=== PATIENT | female | born 1965 | race Caucasian/White ===

== ENCOUNTER → 2019-10-04 | Outpatient (CLI) | payer BC ==
--- NOTE | 2019-10-04 22:16 | MR ---
EXAMINATION TYPE: MR cervical spine wo con DATE OF EXAM: 10/04/2019 COMPARISON: None HISTORY: Neck and Back Pain, Post Fall in February. CONTRAST: Performed utilizing 0 mL intravenous Gadavist gadolinium contrast. TECHNIQUE: Multiplanar multiecho imaging on a 3.0 Chrissie magnet is performed through the cervical spin e. FINDINGS: The craniovertebral junction is normal. Vertebral body alignment is normal. Cervical spine: Disc heights are preserved. Vertebral body heights are preserved. No spinal canal teresa nosis or neural foraminal stenosis is present. Mild disc desiccation is present through the cervical spine. At T3-4 and sagittal plane there appears to be some subligamentous disc herniation with mild anterior thecal sac compression. IMPRESSIONS: 1. Unremarkable MRI cervical spine.
--- NOTE | 2019-10-04 22:53 | MR ---
EXAMINATION TYPE: MR thoracic spine wo/w con DATE OF EXAM: 10/04/2019 COMPARISON: None HISTORY: Neck and Back Pain, Post Fall in February. CONTRAST: Performed utilizing 7.5 mL intravenous Gadavist gadolinium contrast. TECHNIQUE: Multiplanar, multiecho imaging on a 3.0 Chrissie magnet is performed through the thoracic spi ne. Spinal cord maintains normal signal through its visualized course. Vertebral body alignment is normal. Vertebral body heights are preserved. Disc heights are preserved. There is some disc desiccation within the mid thoracic spine. At the T3-4 level there is focal right paracentral disc bulging. This has cord contact. Some cord def ormity may be present. No AP spinal canal stenosis is present. Neural foramen are widely patent. At T5-6 there is left and right paracentral disc bulging and endplate changes this has moderate anter ior thecal sac compression. Some cord deformity is present. The spinal canal stenosis is not present. IMPRESSIONS: 1. Left and right paracentral disc bulging at T5-6 with moderate anterior thecal sac compression. Thi s is contributing to cord deformity. No spinal canal stenosis is present. 2. Moderate right paracentral T3-4 disc bulging with cord contact and mild cord deformity. No spinal canal stenosis is present.
== END | disposition home or self-care (01) ==
LOC: RADMRIMAIN 15:51
PROVIDERS: ATTEND Family Medicine
DX: M47.11 Other spondylosis with myelopathy, occipito-atlanto-axial region (principal); M51.24 Other intervertebral disc displacement, thoracic region
CPT/HCPCS: 72141; 72157; A9585

== ENCOUNTER 2020-03-14 11:19 | Day surgery (SDC) | payer BC, OTHER ==
[2020-03-10 17:25] VITALS: BMI 31.5
[~2020-03-14 11:19] MED LIST: LACTATED RINGERS 1,000 ML IV SCH; LIDOCAINE 1% (10MG/ML) FOR IV START INTRADERMA PRN
[2020-03-14 11:55] VITALS: TEMP 97.6
[2020-03-14] MEDS ORDERED: PROPOFOL 10 MG/ML 20 ML VIAL IV ONE (13:02)
--- NOTE | 2020-03-14 13:23 | P.PCN ---
Date of Procedure: 03/14/20 Procedure(s) Performed: BRIEF HISTORY: Patient is a 55-year-old pleasant white female scheduled for an elective colonoscopy as a part of evaluation of positive cologuard. PROCEDURE PERFORMED: Colonoscopy With snare polypectomy and biopsy. PREOPERATIVE DIAGNOSIS: Positive cologuard. IV sedation per Anesthesia. PROCEDURE: After informed consent was obtained, the patient, was brought into the endoscopy unit. IV sedation was administered by Anesthesia under continuous monitoring. Digital rectal examination was normal. Initially the Olympus CF-160 flexible video colonoscope was then inserted in the rectum, gradually advanced into the cecum without any difficulty. Careful examination was performed as the scope was gradually being withdrawn. Ileocecal valve and the appendiceal orifice were visualized and appeared normal. Prep was excellent. Mucosa of the cecum, ascending colon, were normal. The hepatic flexure there was a 3 mm polyp that was removed by cold biopsy and a 5 limited polyp that was removed by snare polypectomy. The transverse colon there was a 1 cm flat polyp removed by snare polypectomy. Rest of the transverse colon, descending colon, sigmoid colon, and rectum appeared normal. Rectum there was a 5 mm 2 polyps removed by snare polypectomy Retroflexion was performed in the rectum and no lesions were seen. The patient tolerated the procedure well. IMPRESSION: 3 mm and 5 mm hepatic flexure polyp status post removal by biopsy and snare polypectomy 1 cm flat transverse colon polyp status post snare polypectomy 5 mm 2 rectal polyps status post polypectomy RECOMMENDATIONS: Findings of this examination were discussed with the patient as well as a family..He was advised to follow up the biopsy results. If the biopsy shows an adenoma she can have a repeat colonoscopy in 3-5 years
[2020-03-14] MEDS ORDERED: IV FLUID CONTINUATION 800 ML IV ONE (13:27)
[2020-03-14 13:40] VITALS: BP 159/80; PULSE 74; RESP 20
== END 2020-03-14 14:23 | disposition home or self-care (01) ==
LOC: ORWHC2ENDO 11:19
PROVIDERS: ATTEND Internal Medicine Gastroenterology
DX: D12.3 Benign neoplasm of transverse colon (principal); K63.5 Polyp of colon; F17.210 Nicotine dependence, cigarettes, uncomplicated; Z90.11 Acquired absence of right breast and nipple; Z79.899 Other long term (current) drug therapy; Z88.1 Allergy status to other antibiotic agents; Z91.09 Other allergy status, other than to drugs and biological substances
CPT/HCPCS: 88305; 45380; 45385; J2704

== ENCOUNTER → 2021-10-09 | Outpatient (CLI) | payer BC ==
--- NOTE | 2021-10-09 09:20 | MM ---
Reason for Exam: Screening (asymptomatic). Additional evaluation requested from prior study. Patient History: Menarche at age 13. First Full-Term at age 18. Postmenopausal. Breast cancer, right, age 30. 02/29/1996, Reduction on the Left side. 02/29/1996, Mastectomy on the Right side. 08/30/1995, MG stereo VAD BX RT on the Right side. 02/29/1996, TRAM Reconstruction on the right side. Tissue Density: The breast tissue is heterogeneously dense. This may lower the sensitivity of mammography. Findings: Analyzed By CAD. At the 12:00 position approximately 8 cm from the nipple is a 4.1 x 3.2 x 2.8 cm mass with irregular margins and internal calcifications felt to reflect malignancy until proven otherwise. Enlarged left axillary lymph nodes are also noted. Tracheal reconstruction on the right. Implant is noted in place. No evidence for mass or suspicious calcifications right side. Overall Assessment: Incomplete: need additional imaging evaluation, BI-RAD 0 Assessment: MG 3D screening mammo w/cad - Bilateral: Incomplete: need additional imaging evaluation, BI-RAD 0. Management: Diagnostic Breast Ultrasound of the left breast. A clinical breast exam by your physician is recommended on an annual basis and results should be correlated with mammographic findings. Electronically signed and approved by: Robby Flores M.D. Radiologis
== END | disposition home or self-care (01) ==
LOC: RADMAMWWP 07:26
PROVIDERS: ATTEND Family Medicine
DX: Z12.31 Encounter for screening mammogram for malignant neoplasm of breast (principal); R92.1 Mammographic calcification found on diagnostic imaging of breast
CPT/HCPCS: 77063; 77067

== ENCOUNTER → 2021-10-17 | Day surgery (SDC) | payer BC ==
--- NOTE | 2021-10-19 11:23 | USB ---
Pathology Description: Location: 12 o'clock. Marker Left Behind. Cores: 4 Gauge: 12 EXAM: US biopsy breast VAD LT, US biopsy breast add'l VAD LT DATE OF EXAM: 10/17/2021 COMPARISON: DESCRIPTION: The procedure of ultrasound guided core biopsy was explained to the patient. Benefits, alternatives, and risks were discussed. An informed consent was then obtained. The patient was placed in supine positioning for imaging and for the procedure. The overlying skin was prepped and draped in usual sterile fashion. Lidocaine buffered with bicarbonate was used as anesthetic into the skin and subcutaneous tissue up to area of concern in the left 12:00 breast and left axillary lymph node. Under ultrasound guidance, a 12-gauge vacuum assisted biopsy gun device was used to obtain 4 core samplesleft 12:00 breast mass and 2 core samples of abnormal left axillary lymph node.. Following this, a biopsy clips were left in lesion. The patient tolerated the procedure well without any immediate complication. The patient was kept in the radiology department for short stay after the procedure and then discharged home in stable condition. Impression: Successful, uncomplicated ultrasound guided core biopsy of area of concern in the left 12:00 breast and left axillary lymph node, full pathology results to follow. Pathology Results: Result: Malignant, Invasive ductal carcinoma. A. LEFT BREAST, TWELVE O'CLOCK, ULTRASOUND GUIDED NEEDLE CORE BIOPSY: Invasive poorly differentiated ductal carcinoma (Grade 3). See Surgical Pathology Cancer Case Summary. B. LEFT AXILLA LYMPH NODE, CORE BIOPSY: Lymph node positive for metastatic poorly differentiated carcinoma consistent with ductal breast primary. Pathology Description: Location: axilla. Marker Left Behind. Cores: 2 Gauge: 12 EXAM: US biopsy breast VAD LT, US biopsy breast add'l VAD LT DATE OF EXAM: 10/17/2021 COMPARISON: DESCRIPTION: The procedure of ultrasound guided core biopsy was explained to the patient. Benefits, alternatives, and risks were discussed. An informed consent was then obtained. The patient was placed in supine positioning for imaging and for the procedure. The overlying skin was prepped and draped in usual sterile fashion. Lidocaine buffered with bicarbonate was used as anesthetic into the skin and subcutaneous tissue up to area of concern in the left 12:00 breast and left axillary lymph node. Under ultrasound guidance, a 12-gauge vacuum assisted biopsy gun device was used to obtain 4 core samplesleft 12:00 breast mass and 2 core samples of abnormal left axillary lymph node.. Following this, a biopsy clips were left in lesion. The patient tolerated the procedure well without any immediate complication. The patient was kept in the radiology department for short stay after the procedure and then discharged home in stable condition. Impression: Successful, uncomplicated ultrasound guided core biopsy of area of concern in the left 12:00 breast and left axillary lymph node, full pathology results to follow. Pathology Results: Result: Malignant, Invasive ductal carcinoma. A. LEFT BREAST, TWELVE O'CLOCK, ULTRASOUND GUIDED NEEDLE CORE BIOPSY: Invasive poorly differentiated ductal carcinoma (Grade 3). See Surgical Pathology Cancer Case Summary. B. LEFT AXILLA LYMPH NODE, CORE BIOPSY: Lymph node positive for metastatic poorly differentiated carcinoma consistent with ductal breast primary. Tissue Density: Left: The breast tissue is heterogeneously dense. This may lower the sensitivity of mammography. Overall Assessment: Malignant Assessment: MG diagnostic mammo LT wo CAD. - Left: Known biopsy proven malignancy, BI-RAD 6. Management: Diagnostic Mammogram of the left breast in 6 months. Surgical Consultation of the left breast. Electronically signed and approved by: Robby Flores M.D. Radiologis
== END ==
LOC: RADUSWWP 10:11
PROVIDERS: ATTEND Surgery
DX: C50.912 Malignant neoplasm of unspecified site of left female breast (principal); C77.3 Secondary and unspecified malignant neoplasm of axilla and upper limb lymph nodes; Z17.1 Estrogen receptor negative status [ER-]; Z88.1 Allergy status to other antibiotic agents; Z91.09 Other allergy status, other than to drugs and biological substances; F17.200 Nicotine dependence, unspecified, uncomplicated
CPT/HCPCS: 88305; 88342; 88341; 77065; 19083; 19084; A4648

== ENCOUNTER → 2021-10-26 | Outpatient (CLI) | payer BC ==
[2021-10-26 14:55] VITALS: BP 152/85; PULSE 79; RESP 18; TEMP 98.9
--- NOTE | 2021-10-26 15:22 | P.GSHP ---
History of Present Illness H&P Date: 10/26/21 Chief Complaint: left breast invasive ductal cancer Milagros is a 56 year old white female seen in consultation for Dr. Avitia regarding a biopsy proven cancer of the left breast. [id number](-). She feels a mass in her left breast which she has noted for several months. It has grown since she noted it in May. It is painful. States that the left breast is warm, it has some retraction, and it is not draining anything. She had a mastectomy on the right side at the age of 31 with a reconstruction. [facility] and a mastecotmy. She also had radiation to that side. She aslo had a reduction on the left side at that time. She had a bilateral mammogram [id number] showed a lesion of concern in the left breast, this was 4.1 x 3.2 x 2.8 cm with irregular margins and an enlarged lymph node was also noted to be present. On the right sided implant was noted to be in place no evidence for mass or suspicious calcifications on the right. The ultrasound was done on the same date which again revealed a 4.1 x 3.2 cm mass with irregular margins for which core biopsy was recommended.. This led to an ultrasound and a biopsy of the left side. She did not use any anti hormone therapy. She did not have genetic testing. Caffiene: 3 cups/day nicotine: stopped smoking July 19, 2021; prior 3/4 PPD since in teens hormones: BCP: 5 years in twenties chocolate: often Family history: maternal grandmother: uterine, bowel and bladder cancer Hormonal History: menarche: 13 (twins), age at first : 18, breast fed: no menopause: 40's Surgical History: 2 tram flap reconstruction right mastectomy medipost placed and removed left breast reduction Medical History: none Social History: nicotine: none alcohol: occasional drugs:none - Constitutional Constitutional: Denies chills, Denies fever - EENT Eyes: denies blurred vision, denies pain Ears: bilateral: decreased hearing, deny: tinnitus Ears, nose, mouth and throat: Denies headache, Denies sore throat - Breasts Breasts: bilateral: as per HPI - Cardiovascular Cardiovascular: Denies chest pain, Denies shortness of breath - Respiratory Respiratory: Denies cough, Denies 7 - Gastrointestinal Gastrointestinal: Denies abdominal pain, Denies diarrhea, Denies nausea, Denies vomiting - Genitourinary (Female) Genitourinary: Denies dysuria, Denies hematuria - Menstruation Menstruation: Reports postmenopausal - Musculoskeletal Musculoskeletal: Denies myalgias - Integumentary Integumentary: Denies pruritus, Denies rash - Neurological Neurological: Denies numbness, Denies weakness - Psychiatric Psychiatric: Denies anxiety, Denies depression - Endocrine Endocrine: Reports fatigue, Denies weight change - Hematologic/Lymphatic Comment: none - Allergic/Immunologic Allergic/Immunologic: Reports seasonal allergies Past Medical History Past Medical History: Asthma, Cancer, Osteoarthritis (OA) Additional Past Medical History / Comment(s): Fell Feb 2019, hurt back, still having issues. Allergies. Hx right breast cancer 1995. Heartburn. History of Any Multi-Drug Resistant Organisms: None Reported Past Surgical History: Breast Surgery, Section Additional Past Surgical History / Comment(s): Section X2, right mastectomy with reconstructive surgery, Mediport placed and removed. Additional Past Anesthesia/Blood Transfusion Reaction / Comment(s): No BP or IV starts or Blood Work in right arm. Difficult IV start. Past Psychological History: No Psychological Hx Reported Smoking Status: Former smoker Past Alcohol Use History: Occasional Additional Past Alcohol Use History / Comment(s): Has been smoking for 40 yrs <1ppd. Quit June 2021 Past Drug Use History: None Reported - Past Family History Mother Family Medical History: No Reported History Medications and Allergies Home Medications Medication Instructions Recorded Confirmed Type Cetirizine HCl 10 mg PO DAILY 10/11/21 10/26/21 History Albuterol Inhaler [Ventolin Hfa 1 puff PO DIRECTED PRN 10/26/21 10/26/21 History Inhaler] Fluticasone Nasal [place] [Flonase 1 spray NASAL DAILY 10/26/21 10/26/21 History Nasal [place]] Meloxicam [Mobic] 15 mg PO DAILY 10/26/21 10/26/21 History Allergies Allergy/AdvReac Type Severity Reaction Status Date / Time doxycycline Allergy Vomiting Verified 10/26/21 14:47 Tape Allergy "Eats Skin" Uncoded 10/26/21 14:47 Surgical - Exam Vital Signs Temp Pulse Resp BP Pulse Ox 98.9 F 79 18 152/85 97 10/26/21 14:50 10/26/21 14:50 10/26/21 14:50 10/26/21 14:50 10/26/21 14:50 BM: 31.1 - General no distress - Eyes normal ocular movement - Neck trachea midline - Respiratory normal respiratory effort, clear to auscultation - Cardiovascular Rhythm: regular Heart Sounds: normal: S1, S2 - Abdomen Abdomen: soft, non tender, no guarding, no rigid, no rebound - Integumentary normal turgor - Neurologic no disoriented, no combative - Musculoskeletal normal gait - Psychiatric oriented to time, oriented to person, oriented to place, speech is normal, memory intact Breast Exam: BRA: sports XL inspection: Right breast status post mastectomy and reexcision with subpectoral prosthesis and TRAM flap, left breast reduction with skin changes in the lower aspect of the breast and some mild erythema Palpation: Right breast/chest wall: No evidence of any recurrent cancer Right axilla: No evidence of any adenopathy of concern Left breast: Engorged with fullness in the upper outer quadrant extending from the upper outer quadrant into the 12 o'clock position approximately 8 cm in size Left axilla: + adenopathy Results Mammogram and ultrasound reviewed personally with Dr. Meraz Assessment and Plan Assessment: Impression: Patient status post right breast mastectomy and reconstruction at the age of 31 approximately 25 years ago with no evidence of any recurrent cancer on the right chest wall. Recent mass left breast biopsy proven triple negative carcinoma Genetic testing unknown Plan: Genetic testing Presentation of case at tumor board Appointment with medical oncology Patient seen with her daughter. We have discussed the pathology and treatment options. CC: Dr. Avitia
== END ==
LOC: WWCWWP 14:02
PROVIDERS: ATTEND Surgery
DX: C50.912 Malignant neoplasm of unspecified site of left female breast (principal); Z90.11 Acquired absence of right breast and nipple; J45.909 Unspecified asthma, uncomplicated; M19.90 Unspecified osteoarthritis, unspecified site; Z87.891 Personal history of nicotine dependence; Z88.1 Allergy status to other antibiotic agents; Z91.048 Other nonmedicinal substance allergy status

== ENCOUNTER → 2021-10-30 | Outpatient (CLI) | payer BC ==
--- NOTE | 2021-10-30 16:14 | NM ---
EXAMINATION TYPE: NM bone scan whole body DATE OF EXAM: 10/30/2021 COMPARISON: NONE HISTORY: Breast carcinoma Delayed whole-body scanning was performed following the injection of 23.1 mCi Tc 99m MDP. Images acq uired 3 hours post injection. FINDINGS: Soft tissue uptake is mildly asymmetric within the lower extremities. Uptake within the feet, ankles, knees, wrists and hands, shoulders and sternoclavicular joints is likely degenerative, mildly asymme tric in the right knee is compared to left, right ankle and foot as compared to left, right hip as co mpared to left. An asymmetric tram track appearance of uptake is present along the right femur, indeterminate. There may be venous stasis disease, some mild increased uptake is present in the right lower extremity soft tissues as compared to the left. There is a scoliotic curvature to the spine. Uptake in the maxilla and mandible is likely due to periodontal disease. IMPRESSION: Correlate for venous stasis disease in the right lower extremity greater than left as described. Ther e is asymmetric periosteal reaction suspected in the right femur as compared to the left, no other ev ident prostatic disease.
== END | disposition home or self-care (01) ==
LOC: RADNMMAIN 10:45
PROVIDERS: ATTEND Surgery
DX: C50.212 Malignant neoplasm of upper-inner quadrant of left female breast (principal)
CPT/HCPCS: 78306; A9503

== ENCOUNTER → 2021-10-31 | Outpatient (CLI) | payer BC ==
--- NOTE | 2021-11-01 15:02 | CA ---
Transthoracic Echo Report Name: Milagros Rapp Age: 56 Gender: F : 1965 Exam Date: 10/31/2021 14:08 Exam Location: [facility] Ht (in): 62 Wt (lb): 180 Ordering Physician: Titus Hernandez MD Attending/Referring Phys: [employer] Operator Michelle Cornejo RDCS Procedure CPT: Indications: Z01.818 PRE PROCEDURAL Cardiac Hx: Technical Quality: Fair Contrast 1: Total Dose (mL): Contrast 2: Total Dose (mL): MEASUREMENTS (Male / Female) Normal Values M-MODE Aortic Root Diameter MM 2.9 cm LA Systolic Diameter MM 4.2 cm LA Ao Ratio MM 1.5 MV E Point Septal Separation 1.1 cm AV Cusp Separation MM 1.8 cm DOPPLER MV Area PHT 3.0 cm??? Mitral E Point Velocity 64.5 cm/s Mitral A Point Velocity 72.8 cm/s Mitral E to A Ratio 0.9 MV Deceleration Time 252.5 ms MV E' Velocity 9.4 cm/s Mitral E to MV E' Ratio 6.9 TR Peak Velocity 155.1 cm/s TR Peak Gradient 9.6 mmHg Right Ventricular Systolic Press 14.6 mmHg FINDINGS Left Ventricle Normal left ventricular size, wall thickness, systolic function with no obvious regional wall motion abnormalities. Left ventricular ejection fraction is estimated at 50-55%. Right Ventricle The right ventricle is normal in size and function. Right Atrium The right atrium is normal in size. Left Atrium Left atrial dilatation. Mitral Valve Structurally normal mitral valve without significant stenosis or prolapse. There is mild mitral regurgitation. Aortic Valve Structurally normal aortic valve without significant sclerosis or stenosis. There is no aortic regurgitation. Tricuspid Valve Structurally normal tricuspid valve without significant stenosis. Pulmonary artery systolic pressure is normal. Pulmonic Valve Structurally normal pulmonic valve without significant stenosis. There is no pulmonic regurgitation. Pericardium Normal pericardium without effusion. Aorta Normal aortic root dimension. CONCLUSIONS Normal LV systolic function ejection fraction greater than 55% No significant valvular abnormalities Previewed by: Dr. Zach Rivero MD (Electronically Signed) Final Date: 01 November 2021 15:02
== END | disposition home or self-care (01) ==
LOC: RADECHMAIN 13:44
PROVIDERS: ATTEND Internal Medicine
DX: Z01.818 Encounter for other preprocedural examination (principal); I08.0 Rheumatic disorders of both mitral and aortic valves
CPT/HCPCS: 93306

== ENCOUNTER → 2021-11-01 | Outpatient (CLI) | payer BC ==
--- NOTE | 2021-11-01 13:51 | CT ---
EXAMINATION TYPE: CT ChestAbdPelvis w con CT DLP: 1151.00 mGycm, Automated exposure control for dose reduction was used. DATE OF EXAM: 11/01/2021 12:49 PM COMPARISON: None. CLINICAL INDICATION:Female, 56 years old with history of C50.212 breast ca; follow up for breast canc er Technique: Multiple axial images of the chest, abdomen, and pelvis were obtained following the intrav enous administration of 100 mL Isovue-300. Oral contrast administered. Two-dimensional coronal and sa gittal reconstructions were obtained. Findings: CHEST: LUNGS/ PLEURA: 4 mm right lower lobe pleural-based noncalcified nodule (series 4, image 45). Right a pex pleural parenchymal scarring. Right upper lobe subpleural reticular opacities likely related to p osttreatment changes (radiation). No pneumothorax or pleural effusion. No focal consolidation. AIRWAY: Patent and unremarkable. HEART: Size within normal limits. No pericardial effusion. MEDIASTINUM/HILUM: No pathologic adenopathy. VASCULATURE: No aortic aneurysm. MUSCULOSKELETAL: No acute osseous abnormalities. SOFT TISSUES/LYMPH NODES: Left breast skin thickening demonstrated. Left breast peripheral enhancing mass measuring 4.1 x 2.9 cm. Enlarged left axillary lymph nodes with index lymph nodes including a 2. 6 x 1.4 cm lymph node (series 3, 17) and a 2.1 x 1.6 centimeter lymph node (series 3, image 10). Post surgical changes from right mastectomy with breast implant in place. LOWER NECK: No significant findings. ABDOMEN: ABDOMEN LIVER: A few scattered subcentimeter hypoattenuating lesions within the liver which are too small to accurately characterize. GALLBLADDER AND BILE DUCTS: Cholelithiasis without evidence of surrounding inflammatory changes. No b iliary duct dilatation. PANCREAS: Unremarkable. SPLEEN: Unremarkable. ADRENAL GLANDS: Unremarkable. KIDNEYS AND URETERS: No evidence of hydronephrosis or renal calculus. Kidneys enhance symmetrically. No suspicious lesion. PELVIS BLADDER: Unremarkable REPRODUCTIVE: Unremarkable. ABDOMEN & PELVIS STOMACH AND BOWEL: Stomach and duodenum are unremarkable. No focal wall thickening. Enteric contrast reaches the descending colon. No evidence of bowel obstruction. PERITONEUM: No evidence of pneumoperitoneum or free fluid. VASCULATURE: No evidence of aortic aneurysm. MUSCULOSKELETAL: No acute osseous abnormalities. No suspicious osseous lesions. S-shaped scoliotic cu rvature of the visualized spine. LYMPH NODES: No gross evidence for lymphadenopathy. SOFT TISSUE/ABDOMINAL WALL: Unremarkable IMPRESSION: * Left breast 4.1 cm mass consistent with biopsy-proven invasive ductal carcinoma. * Left axillary lymphadenopathy consistent with biopsy-proven metastatic disease. * Nonspecific 4 mm right lower lobe pulmonary nodule. Attention on follow-up. * A few subcentimeter hypodense foci within the liver are too small to characterize. Attention on fo llow-up. * Cholelithiasis.
== END | disposition home or self-care (01) ==
LOC: RADCTMAIN 11:19
PROVIDERS: ATTEND Surgery
DX: C50.212 Malignant neoplasm of upper-inner quadrant of left female breast (principal); K80.20 Calculus of gallbladder without cholecystitis without obstruction
CPT/HCPCS: 71260; 74177; Q9967

== ENCOUNTER → 2022-02-11 | Outpatient (CLI) | payer BC ==
--- NOTE | 2022-02-12 12:21 | CA ---
Transthoracic Echo Report Name: Milagros Rapp Age: 57 Gender: F : 1965 Exam Date: 02/11/2022 14:16 Exam Location: [facility] Ht (in): 63 Wt (lb): 190 Ordering Physician: Titus Hernandez MD Attending/Referring Phys: Manager Clinical Services Pauline aHgan RDCS Procedure CPT: Indications: Z01.818 PREPROCEDURAL EXAMINATION Cardiac Hx: Technical Quality: Fair Contrast 1: Total Dose (mL): Contrast 2: Total Dose (mL): MEASUREMENTS (Male / Female) Normal Values 2D ECHO LV Diastolic Diameter PLAX 3.9 cm 4.2 - 5.9 / 3.9 - 5.3 cm LV Systolic Diameter PLAX 2.7 cm IVS Diastolic Thickness 1.1 cm 0.6 - 1.0 / 0.6 - 0.9 cm LVPW Diastolic Thickness 1.1 cm 0.6 - 1.0 / 0.6 - 0.9 cm LV Relative Wall Thickness 0.6 LA Volume 43.0 cm??? 18 - 58 / 22 - 52 cm??? M-MODE Aortic Root Diameter MM 2.6 cm LA Systolic Diameter MM 2.8 cm LA Ao Ratio MM 1.1 DOPPLER AV Peak Velocity 170.7 cm/s AV Peak Gradient 11.7 mmHg AV Mean Velocity 109.4 cm/s AV Mean Gradient 5.2 mmHg AV Velocity Time Integral 31.2 cm LVOT Peak Velocity 133.2 cm/s LVOT Peak Gradient 7.1 mmHg LVOT Velocity Time Integral 28.9 cm MV Area PHT 3.8 cm??? Mitral E Point Velocity 84.8 cm/s Mitral A Point Velocity 100.7 cm/s Mitral E to A Ratio 0.8 MV Deceleration Time 200.3 ms MV E' Velocity 8.6 cm/s Mitral E to MV E' Ratio 9.8 TR Peak Velocity 188.4 cm/s TR Peak Gradient 14.2 mmHg Right Ventricular Systolic Press 19.2 mmHg FINDINGS Left Ventricle Mildly increased left ventricular wall thickness. Normal left ventricular systolic function with no obvious regional wall motion abnormalities. Left ventricular ejection fraction is estimated at 55-60 %. Normal left ventricular diastolic filling pattern. Right Ventricle Normal right ventricular size and function. Right ventricular systolic pressure within normal limits. Right Atrium Normal right atrial size. Left Atrium Normal left atrial size. Mitral Valve Structurally normal mitral valve. No mitral stenosis. Mild mitral regurgitation. Aortic Valve No aortic valve stenosis or regurgitation. Tricuspid Valve Structurally normal tricuspid valve. Mild tricuspid regurgitation. Pulmonic Valve Pulmonic valve not well visualized. Pericardium No pericardial effusion. Aorta Normal size aortic root and proximal ascending aorta. CONCLUSIONS 1. Normal left ventricle size and systolic function 2. Mild mitral and tricuspid regurgitation 3. No pericardial effusion Previewed by: Dr. Diana Shore MD (Electronically Signed) Final Date: 12 February 2022 12:20
== END | disposition home or self-care (01) ==
LOC: RADECHMAIN 13:39
PROVIDERS: ATTEND Internal Medicine
DX: Z01.818 Encounter for other preprocedural examination (principal); I08.1 Rheumatic disorders of both mitral and tricuspid valves
CPT/HCPCS: 93306

== ENCOUNTER → 2022-07-05 | Outpatient (CLI) | payer BC ==
[2022-07-05 09:01] VITALS: BP 155/84; PULSE 85; RESP 18; TEMP 98.3
--- NOTE | 2022-07-05 09:40 | P.PN ---
Subjective Progress Note Date: 07/05/22 Principal diagnosis: stage IIIC left breast cancer, status post right mastectomy in her 20's History of Present Illness H&P Date: 10/26/21 Chief Complaint: left breast invasive ductal cancer stage IIIC Milagros is a 56 year old white female seen in consultation for Dr. Avitia regarding a biopsy proven cancer of the left breast. [id number](-). She feels a mass in her left breast which she has noted for several months. It has grown since she noted it in May. It is painful. States that the left breast is warm, it has some retraction, and it is not draining anything. She had a mastectomy on the right side at the age of 31 with a reconstruction. [facility] she did a high dose chemotherapy and a mastecotmy. She also had radiation to that side. She aslo had a reduction on the left side at that time. She had a bilateral mammogram [id number] showed a lesion of concern in the left breast, this was 4.1 x 3.2 x 2.8 cm with irregular margins and an enlarged lymph node was also noted to be present. On the right sided implant was noted to be in place no evidence for mass or suspicious calcifications on the right. The ultrasound was done on the same date which again revealed a 4.1 x 3.2 cm mass with irregular margins for which core biopsy was recommended.. This led to an ultrasound and a biopsy of the left side. At the diagnosis of her original tumor she did not have any hormone therapy, and she did not have any genetic testing. 07-05-22 Milagros is a 57-year-old white female with a history significant for right breast cancer diagnosed in 1995 at the age of 30. 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 She had first noted swelling in her left breast in May 2021. She was referred for a mammogram which was done on which noted an irregular 4.1 x 3.2 cm mass in the left breast. A core biopsy was done of this which revealed grade 3 invasive ductal carcinoma triple negative. A biopsy of a lymph node at that time was positive for metastatic poorly differentiated breast cancer. A computed tomography scan of the chest abdomen and pelvis on 8421 noted 4 mm pulmonary nodule in the right lower lung field along with hypodense subcentimeter lesions in the liver which were not considered suspicious for metastatic disease. Bone scan did not show any concern for metastatic disease. The patient underwent neoadjuvant chemotherapy. She was treated on the barba no 522 protocol. She underwent neoadjuvant chemotherapy. Genetic testing was performed and the patient was noted to be BRCA1 positive. This was done in November 2021. Her case was presented at tumor board on a2322. At that time neoadjuvant chemotherapy was recommended prior to any attempt at surgical resection. She has not had any recent imaging since her treatment. Caffiene: 3 cups/day nicotine: stopped smoking July 19, 2021; prior 3/4 PPD since in teens hormones: BCP: 5 years in twenties chocolate: often Family history: maternal grandmother: uterine, bowel and bladder cancer Hormonal History: menarche: 13 (twins), age at first : 18, breast fed: no menopause: 40's Surgical History: 2 tram flap reconstruction right mastectomy mediport placed and removed, replaced left breast reduction Medical History: none Social History: nicotine: none alcohol: occasional drugs:none - Constitutional Constitutional: Denies chills, Denies fever - EENT Eyes: denies blurred vision, denies pain Ears: bilateral: decreased hearing, deny: tinnitus Ears, nose, mouth and throat: Denies headache, Denies sore throat - Breasts Breasts: bilateral: as per HPI - Cardiovascular Cardiovascular: Denies chest pain, Denies shortness of breath - Respiratory Respiratory: Denies cough - Gastrointestinal Gastrointestinal: Denies abdominal pain, Denies diarrhea, Denies nausea, Denies vomiting - Genitourinary (Female) Genitourinary: Denies dysuria, Denies hematuria - Menstruation Menstruation: Reports postmenopausal - Musculoskeletal Musculoskeletal: Denies myalgias - Integumentary Integumentary: Denies pruritus, Denies rash - Neurological Neurological: Denies numbness, Denies weakness - Psychiatric Psychiatric: Denies anxiety, Denies depression - Endocrine Endocrine: Reports fatigue, Denies weight change - Hematologic/Lymphatic Comment: none - Allergic/Immunologic Allergic/Immunologic: Reports seasonal allergies Past Medical History Past Medical History: Asthma, Cancer, Osteoarthritis (OA) Additional Past Medical History / Comment(s): Fell Feb 2019, hurt back, still having issues. Allergies. Hx right breast cancer 1995. Heartburn. History of Any Multi-Drug Resistant Organisms: None Reported Past Surgical History: Breast Surgery, Section Additional Past Surgical History / Comment(s): Section X2, right mastectomy with reconstructive surgery, Mediport placed and removed. Additional Past Anesthesia/Blood Transfusion Reaction / Comment(s): No BP or IV starts or Blood Work in right arm. Difficult IV start. Past Psychological History: No Psychological Hx Reported Smoking Status: Former smoker Past Alcohol Use History: Occasional Additional Past Alcohol Use History / Comment(s): Has been smoking for 40 yrs <1ppd. Quit June 2021 Past Drug Use History: None Reported - Past Family History Mother Family Medical History: No Reported History Medications and Allergies Home Medications Medication Instructions Recorded Confirmed Type Cetirizine HCl 10 mg PO DAILY 10/11/21 10/26/21 History Albuterol Inhaler [Ventolin Hfa 1 puff PO DIRECTED PRN 10/26/21 10/26/21 History Inhaler] Fluticasone Nasal [place] [Flonase 1 spray NASAL DAILY 10/26/21 10/26/21 History Nasal [place]] Meloxicam [Mobic] 15 mg PO DAILY 10/26/21 10/26/21 History Allergies Allergy/AdvReac Type Severity Reaction Status Date / Time doxycycline Allergy Vomiting Verified 10/26/21 14:47 Tape Allergy "Eats Skin" Uncoded 10/26/21 14:47 Objective - Vital Signs Vital signs: Vital Signs Temp 98.3 F 07/05/22 08:58 Pulse 85 07/05/22 08:58 Resp 18 07/05/22 08:58 BP 155/84 07/05/22 08:58 Pulse Ox 98 07/05/22 08:58 FiO2 Intake & Output 07/04/22 07/05/22 07/05/22 18:59 06:59 18:59 Weight 79.379 kg - Constitutional General appearance: Present: cooperative - EENT Eyes: Present: EOMI ENT: Present: hearing grossly normal - Neck Neck: Present: normal ROM - Respiratory Respiratory: bilateral: CTA - Cardiovascular Rhythm: regular Heart sounds: normal: S1, S2 - Gastrointestinal General gastrointestinal: Present: soft - Integumentary Integumentary: Present: normal turgor - Musculoskeletal Musculoskeletal: Present: gait normal - Psychiatric Psychiatric: Present: A&O x's 3, appropriate affect, intact judgment & insight - Additional findings Additional findings: Breast Exam: BRA: sports XL inspection: Right breast status post mastectomy and reexcision with ? subpectoral prosthesis and TRAM flap Dr. Sampson, left breast reduction with skin changes in the lower aspect of the breast and some mild erythema Palpation: Right breast/chest wall: No evidence of any recurrent cancer Right axilla: No evidence of any adenopathy of concern Left breast: Post reduction mammoplasty changes, the inferior skin of the breast is somewhat erythematous with some mild dimpling, multiple positional exam no discrete dominant masses at this time Left axilla: Axillary adenopathy has resolved no discrete lymph nodes of concern at this time Assessment and Plan Assessment: Impression: Good response to neoadjuvant chemotherapy in the left breast Question whether there may be some subdermal invasion of the lymphatics rec ommend a punch biopsy of the skin on the left breast Left breast mammogram and ultrasound with particular attention to the axilla Plan: Follow up next week for results of punch biopsy Discuss case with Dr. Hernandez re-presentation of case at tumor board
== END ==
LOC: WWCWWP 08:49
PROVIDERS: ATTEND Surgery
DX: C50.912 Malignant neoplasm of unspecified site of left female breast (principal); R92.8 Other abnormal and inconclusive findings on diagnostic imaging of breast; J45.909 Unspecified asthma, uncomplicated; M19.90 Unspecified osteoarthritis, unspecified site; Z88.1 Allergy status to other antibiotic agents; Z91.040 Latex allergy status; Z79.51 Long term (current) use of inhaled steroids

== ENCOUNTER → 2022-07-11 | Outpatient (CLI) | payer BC ==
--- NOTE | 2022-07-11 13:09 | MM ---
Reason for Exam: Follow-up at short interval from prior study. Last screening mammogram was performed 9 month(s) ago. Patient History: Menarche at age 13. First Full-Term at age 18. Postmenopausal. Breast cancer, right, age 30. Breast cancer, left, age 56. Breast cancer, left, age 56. 10/17/2021, Malignant US biopsy breast VAD LT on the left side. 10/17/2021, Malignant US biopsy breast add'l VAD LT on the left side. 02/29/1996, Reduction on the Left side. 02/29/1996, Mastectomy on the Right side. 08/30/1995, MG stereo VAD BX RT on the Right side. 02/29/1996, TRAM Reconstruction on the right side. Prior Study Comparison: 01/11/2015 Bilateral MG screening mammo w CAD - 2, [facility]. 10/09/2021 Bilateral MG 3D screening mammo w/cad, [facility]. 10/17/2021 Left MG diagnostic mammo LT wo CAD., [facility]. Tissue Density: Left: The breast tissue is heterogeneously dense. This may lower the sensitivity of mammography. Findings: Analyzed By CAD. Pattern appears stable. Core markers within the 12:00 middle position left breast. There is some mild diffuse skin thickening present. No suspicious groups of microcalcifications, spiculated or lobular masses, architectural distortion or other secondary signs of malignancy are mammographically apparent. Overall Assessment: Incomplete: need additional imaging evaluation, BI-RAD 0 Management: Diagnostic Breast Ultrasound of the left breast. A negative mammogram report should not preclude additional follow up of suspicious palpable abnormalities. Patient should continue monthly self breast exam. A clinical breast exam by your physician is recommended on an annual basis and results should be correlated with mammographic findings. Electronically signed and approved by: Miko Meraz D.O. Radiologis
--- NOTE | 2022-07-11 13:54 | P.PN ---
Subjective Progress Note Date: 07/11/22 Subjective Progress Note Date: 07/05/22 Principal diagnosis: stage IIIC left breast cancer, status post right mastectomy in her 20's History of Present Illness H&P Date: 10/26/21 Chief Complaint: left breast invasive ductal cancer stage IIIC Milagros is a 56 year old white female seen in consultation for Dr. Avitia regarding a biopsy proven cancer of the left breast. [id number]). She feels a mass in her left breast which she has noted for several months. It has grown since she noted it in May. It is painful. States that the left breast is warm, it has some retraction, and it is not draining anything. She had a mastectomy on the right side at the age of 31 with a reconstruction. [facility] she did a high dose chemotherapy and a mastecotmy. She also had radiation to that side. She aslo had a reduction on the left side at that time. She had a bilateral mammogram [id number] showed a lesion of concern in the left breast, this was 4.1 x 3.2 x 2.8 cm with irregular margins and an enlarged lymph node was also noted to be present. On the right sided implant was noted to be in place no evidence for mass or suspicious calcifications on the right. The ultrasound was done on the same date which again revealed a 4.1 x 3.2 cm mass with irregular margins for which core biopsy was recommended.. This led to an ultrasound and a biopsy of the left side. At the diagnosis of her original tumor she did not have any hormone therapy, and she did not have any genetic testing. 07-05-22 Milagros is a 57-year-old white female with a history significant for right breast cancer diagnosed in 1995 at the age of 30. 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 She had first noted swelling in her left breast in May 2021. She was referred for a mammogram which was done on which noted an irregular 4.1 x 3.2 cm mass in the left breast. A core biopsy was done of this which revealed grade 3 invasive ductal carcinoma triple negative. A biopsy of a lymph node at that time was positive for metastatic poorly differentiated breast cancer. A computed tomography scan of the chest abdomen and pelvis on 8421 noted 4 mm pulmonary nodule in the right lower lung field along with hypodense subcentimeter lesions in the liver which were not considered suspicious for metastatic disease. Bone scan did not show any concern for metastatic disease. The patient underwent neoadjuvant chemotherapy. She was treated on the barba note 522 protocol. She underwent neoadjuvant chemotherapy. Genetic testing was performed and the patient was noted to be BRCA1 positive. This was done in November 2021. Her case was presented at tumor board on a2322. At that time neoadjuvant chemotherapy was recommended prior to any attempt at surgical resection. She has not had any recent imaging since her treatment. recommended ultrasoun fo the left breat Mammogram on 07-11-22 recommended ultrasound of the left breast, this was done on 07-11-22 also. A small node was seen the cortex was thinned and it appeared normal. She underwent a core biopsy of the skin on 4722. This revealed benign skin with dermal fibrosis suggesting scarring, mild perivascular chronic inflammation, negative for tumor. Caffiene: 3 cups/day nicotine: stopped smoking July 19, 2021; prior 3/4 PPD since in teens hormones: BCP: 5 years in twenties chocolate: often Family history: maternal grandmother: uterine, bowel and bladder cancer Hormonal History: menarche: 13 (twins), age at first : 18, breast fed: no menopause: 40's Surgical History: 2 tram flap reconstruction right mastectomy mediport placed and removed, replaced left breast reduction Medical History: none Social History: nicotine: none alcohol: occasional drugs:none - Constitutional Constitutional: Denies chills, Denies fever - EENT Eyes: denies blurred vision, denies pain Ears: bilateral: decreased hearing, deny: tinnitus Ears, nose, mouth and throat: Denies headache, Denies sore throat - Breasts Breasts: bilateral: as per HPI - Cardiovascular Cardiovascular: Denies chest pain, Denies shortness of breath - Respiratory Respiratory: Denies cough - Gastrointestinal Gastrointestinal: Denies abdominal pain, Denies diarrhea, Denies nausea, Denies vomiting - Genitourinary (Female) Genitourinary: Denies dysuria, Denies hematuria - Menstruation Menstruation: Reports postmenopausal - Musculoskeletal Musculoskeletal: Denies myalgias - Integumentary Integumentary: Denies pruritus, Denies rash - Neurological Neurological: Denies numbness, Denies weakness - Psychiatric Psychiatric: Denies anxiety, Denies depression - Endocrine Endocrine: Reports fatigue, Denies weight change - Hematologic/Lymphatic Comment: none - Allergic/Immunologic Allergic/Immunologic: Reports seasonal allergies Past Medical History Past Medical History: Asthma, Cancer, Osteoarthritis (OA) Additional Past Medical History / Comment(s): Fell Feb 2019, hurt back, still having issues. Allergies. Hx right breast cancer 1995. Heartburn. History of Any Multi-Drug Resistant Organisms: None Reported Past Surgical History: Breast Surgery, Section Additional Past Surgical History / Comment(s): Section X2, right mastectomy with reconstructive surgery, Mediport placed and removed. Additional Past Anesthesia/Blood Transfusion Reaction / Comment(s): No BP or IV starts or Blood Work in right arm. Difficult IV start. Past Psychological History: No Psychological Hx Reported Smoking Status: Former smoker Past Alcohol Use History: Occasional Additional Past Alcohol Use History / Comment(s): Has been smoking for 40 yrs <1ppd. Quit June 2021 Past Drug Use History: None Reported - Past Family History Mother Family Medical History: No Reported History Medications and Allergies Home Medications Medication Instructions Recorded Confirmed Type Cetirizine HCl 10 mg PO DAILY 10/11/21 10/26/21 History Albuterol Inhaler [Ventolin Hfa 1 puff PO DIRECTED PRN 10/26/21 10/26/21 History Inhaler] Fluticasone Nasal [place] [Flonase 1 spray NASAL DAILY 10/26/21 10/26/21 History Nasal [place]] Meloxicam [Mobic] 15 mg PO DAILY 10/26/21 10/26/21 History Allergies Allergy/AdvReac Type Severity Reaction Status Date / Time doxycycline Allergy Vomiting Verified 10/26/21 14:47 Tape Allergy "Eats Skin" Uncoded 10/26/21 14:47 Objective - Constitutional General appearance: Present: cooperative - EENT Eyes: Present: EOMI ENT: Present: hearing grossly normal - Neck Neck: Present: normal ROM - Respiratory Respiratory: bilateral: CTA - Cardiovascular Rhythm: regular Heart sounds: normal: S1, S2 - Gastrointestinal General gastrointestinal: Present: soft - Integumentary Integumentary: Present: normal turgor - Musculoskeletal Musculoskeletal: Present: gait normal - Psychiatric Psychiatric: Present: A&O x's 3, appropriate affect, intact judgment & insight - Additional findings Additional findings: Breast Exam: BRA: sports XL inspection: Right breast status post mastectomy and reexcision with ? subpectoral prosthesis and TRAM flap Dr. Sampson, left breast reduction with skin changes in the lower aspect of the breast and some mild erythema Palpation: Right breast/chest wall: No evidence of any recurrent cancer Right axilla: No evidence of any adenopathy of concern Left breast: Post reduction mammoplasty changes, the inferior skin of the breast is somewhat erythematous with some mild dimpling, multiple positional exam no discrete dominant masses at this time Left axilla: Axillary adenopathy has resolved no discrete lymph nodes of concern at this time Assessment and Plan Assessment: Impression: Stage IIIc left breast invasive ductal carcinoma status post neoadjuvant chemotherapy BRCA1 positive Skin biopsy of the breast negative for cancer [place] [address] considered BIRADS 3 1.2 centimeter lymph node was identified the cortex was thinned and appeared to be normal. This was adjacent to the biopsy clip. [place] [address] which was positive for metastatic poorly differentiated carcinoma. She had no suspicious groups of microcalcifications or masses were noted in the breast. On the ultrasound a 1.2 Plan: Left breast mastectomy with needle localization and resection of prior positive lymph node of the left axilla, sentinel node injection on the left radiotracer, methylene blue injection on the left for dual tracer mapping, left sentinel node biopsy, removal of prior left axillary lymph node that was positive, possible left axillary node dissection Presentation of case at tumor board to determine if any further metastatic workup is necessary representation of case at tumor board Risk and benefits of the procedure were discussed with the patient. Risks include but are not limited to bleeding, infection, reaction to the anesthetic. Additionally because she has undergone a prior Morgan pattern reduction mammoplasty the integrity of the skin may be decreased and she may be at increased risk for skin necrosis. The patient understands and wishes to proceed. CC: Dr. Hernandez
== END | disposition home or self-care (01) ==
LOC: RADMAMWWP 10:16
PROVIDERS: ATTEND Surgery
DX: R92.8 Other abnormal and inconclusive findings on diagnostic imaging of breast (principal); Z85.3 Personal history of malignant neoplasm of breast
CPT/HCPCS: 77061; 77065

== ENCOUNTER → 2022-07-11 | Outpatient (CLI) | payer BC ==
[2022-07-11 13:04] VITALS: BP 119/74; PULSE 83; RESP 16; TEMP 98.2
== END ==
LOC: WWCWWP 10:14
PROVIDERS: ATTEND Surgery
DX: Z53.9 Procedure and treatment not carried out, unspecified reason (principal)

== ENCOUNTER → 2022-07-11 | Outpatient (CLI) | payer BC ==
--- NOTE | 2022-07-11 11:22 | USB ---
Reason for Exam: Clinical finding. Patient History: Menarche at age 13. First Full-Term at age 18. Postmenopausal. Breast cancer, right, age 30. Breast cancer, left, age 56. Breast cancer, left, age 56. 10/17/2021, Malignant US biopsy breast VAD LT on the left side. 10/17/2021, Malignant US biopsy breast add'l VAD LT on the left side. 02/29/1996, Reduction on the Left side. 02/29/1996, Mastectomy on the Right side. 08/30/1995, MG stereo VAD BX RT on the Right side. 02/29/1996, TRAM Reconstruction on the right side. Technique: Method: Targeted. Prior Study Comparison: 01/11/2015 Bilateral MG screening mammo w CAD - 2, [facility]. 10/09/2021 Bilateral MG 3D screening mammo w/cad, [facility]. 10/17/2021 Left MG diagnostic mammo LT wo CAD., [facility]. Findings: The axilla of the left breast was scanned. Small lymph node measuring 1.2 x 0.7 x 1.2 cm is present in the left axilla. Cortex is thinned and appears normal. This is adjacent to a biopsy clip. Previous thickening of cortex is not evident.. Overall Assessment: Probably benign, BI-RAD 3 Management: Screening Mammogram of both breasts in 1 year. A clinical breast exam by your physician is recommended on an annual basis and results should be correlated with mammographic findings. This exam should not preclude additional follow-up of suspicious palpable abnormalities. Results were given to the patient verbally at the time of exam. Electronically signed and approved by: Miko Meraz D.O. Radiologis
== END | disposition home or self-care (01) ==
LOC: RADUSWWP 10:18
PROVIDERS: ATTEND Internal Medicine
DX: C50.912 Malignant neoplasm of unspecified site of left female breast (principal); Z78.0 Asymptomatic menopausal state

== ENCOUNTER → 2022-08-13 | Outpatient (CLI) | payer BC ==
--- NOTE | 2022-08-13 12:37 | XR ---
EXAMINATION TYPE: XR chest 2V DATE OF EXAM: 08/13/2022 COMPARISON: 11/16/2021 TECHNIQUE: PA and lateral views submitted. HISTORY: Presurgical FINDINGS: The lungs are clear and there is no pneumothorax, pleural effusion, or focal pneumonia. Heart size normal and no overt failure. Osseous structures intact. Scoliosis noted. Surgical clips overlying the axilla. There is a Mediport catheter tip overlying the SVC. IMPRESSION: 1. No acute process.
== END | disposition home or self-care (01) ==
LOC: RADXRMAIN 11:51
PROVIDERS: ATTEND Family Medicine
DX: Z01.818 Encounter for other preprocedural examination (principal)
CPT/HCPCS: 71046

== ENCOUNTER → 2022-08-13 | Outpatient (CLI) | payer BC | END | disposition home or self-care (01) | LOC: LABWHC1 12:12 | PROVIDERS: ATTEND Family Medicine | DX: Z53.9 Procedure and treatment not carried out, unspecified reason (principal) ==

== ENCOUNTER → 2022-08-13 | Outpatient (CLI) | payer BC ==
[2022-08-13 13:11] VITALS: BP 158/85; PULSE 101; RESP 16; TEMP 98.2
[2022-08-13 13:20] LABS: Basophils % (A) 0 %; Eosinophils # (A) 0.3 k/uL (0-0.7); Eosinophils % (A) 7 %; HCT 36.8 % (34.0-46.0); HGB 12.3 gm/dL (11.4-16.0); Lymphocytes # (A) 0.9 k/uL (1.0-4.8); Lymphocytes % (A) 21 %; MCH 32.7 pg (25.0-35.0); MCHC 33.4 g/dL (31.0-37.0); Mean Platelet Volume 7.4; Monocytes # (A) 0.2 k/uL (0-1.0); Monocytes % (A) 4 %; Neutrophils # (A) 2.6 k/uL (1.3-7.7); Neutrophils % (A) 65 %; Platelet Count 188 k/uL (150-450); RBC 3.76 m/uL (3.80-5.40); RDW 14.3 % (11.5-15.5); WBC 4.1 k/uL (3.8-10.6)
[2022-08-13 13:26] LABS: Prothrombin Time 10.9 sec (9.0-12.0)
[2022-08-13 13:32] LABS: ALT 20 U/L (4-34); AST 29 U/L (14-36); African American GFR (CKD) >90 (>60 ml/min/1.73 sqM); Albumin 4.3 g/dL (3.5-5.0); Alkaline Phosphatase 123 U/L (38-126); Anion Gap 8 mmol/L; Blood Urea Nitrogen 12 mg/dL (7-17); Calcium 8.9 mg/dL (8.4-10.2); Carbon Dioxide 29 mmol/L (22-30); Chloride 104 mmol/L (98-107); Glucose 91 mg/dL (74-99); Non-African American GFR(CKD) >90 (>60 ml/min/1.73 sqM); Potassium 3.8 mmol/L (3.5-5.1); Sodium 141 mmol/L (137-145); Total Bilirubin 0.6 mg/dL (0.2-1.3)
[2022-08-13 13:47] LABS: T4, Free (Free Thyroxine) 0.68 ng/dL (0.78-2.19)
== END ==
LOC: PROCWHC3 12:43
PROVIDERS: ATTEND Family Medicine
DX: C50.912 Malignant neoplasm of unspecified site of left female breast (principal)
CPT/HCPCS: 84439; 80053; 84443; 82553; 85025; 85610; 83036; 36591; J1642

== ENCOUNTER → 2022-08-15 | Outpatient (CLI) | payer BC ==
[2022-08-15 09:19] VITALS: BP 148/88; PULSE 88; RESP 18; TEMP 97.9
--- NOTE | 2022-08-15 09:49 | P.PN ---
Subjective Progress Note Date: 08/15/22 Principal diagnosis: stage IIIC left breast invasive ductal cancer stage IIIC left breast cancer, status post right mastectomy in her 20's Milagros is a 57-year-old white female with a history significant for right breast cancer diagnosed in 1995 at the age of 30. She was treated with chemotherapy and a mastectomy followed by radiation therapy. 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 She had first noted swelling in her left breast in May 2021. She was referred for a mammogram which was done on which noted an irregular 4.1 x 3.2 cm mass in the left breast. A core biopsy was done of this which revealed grade 3 invasive ductal carcinoma triple negative. A biopsy of a lymph node at that time was positive for metastatic poorly differentiated breast cancer. A computed tomography scan of the chest abdomen and pelvis on 8421 noted 4 mm pulmonary nodule in the right lower lung field along with hypodense subcentimeter lesions in the liver which were not considered suspicious for metastatic disease. Bone scan did not show any concern for metastatic disease. The patient underwent neoadjuvant chemotherapy. She was treated on the barba note 522 protocol. She underwent neoadjuvant chemotherapy. Genetic testing was performed and the patient was noted to be BRCA1 positive. This was done in November 2021. [place] [address]. At that time neoadjuvant chemotherapy was recommended prior to any attempt at surgical resection. She has not had any recent imaging since her treatment. recommended ultrasound for the left breat Mammogram on 07-11-22 recommended ultrasound of the left breast, this was done on 07-11-22 also. A small node was seen the cortex was thinned and it appeared normal. She underwent a core biopsy of the skin on 4722. This revealed benign skin with dermal fibrosis suggesting scarring, mild perivascular chronic inflammation, negative for tumor. Case represented at tumor board on 07-30-22. Recommendation for mastectomy, needle loc of (+) node, and SNB. No further metastatic workup was recommended. Caffiene: 3 cups/day nicotine: stopped smoking July 19, 2021; prior 3/4 PPD since in teens hormones: BCP: 5 years in twenties chocolate: often Family history: maternal grandmother: uterine, bowel and bladder cancer Hormonal History: menarche: 13 (twins), age at first : 18, breast fed: no menopause: 40's Surgical History: 2 tram flap reconstruction right mastectomy mediport placed and removed, replaced left breast reduction Medical History: none Social History: nicotine: none alcohol: occasional drugs:none - Constitutional Constitutional: Denies chills, Denies fever - EENT Eyes: denies blurred vision, denies pain Ears: bilateral: decreased hearing, deny: tinnitus Ears, nose, mouth and throat: Denies headache, Denies sore throat - Breasts Breasts: bilateral: as per HPI - Cardiovascular Cardiovascular: Denies chest pain, Denies shortness of breath - Respiratory Respiratory: Denies cough - Gastrointestinal Gastrointestinal: Denies abdominal pain, Denies diarrhea, Denies nausea, Denies vomiting - Genitourinary (Female) Genitourinary: Denies dysuria, Denies hematuria - Menstruation Menstruation: Reports postmenopausal - Musculoskeletal Musculoskeletal: Denies myalgias - Integumentary Integumentary: Denies pruritus, Denies rash - Neurological Neurological: Denies numbness, Denies weakness - Psychiatric Psychiatric: Denies anxiety, Denies depression - Endocrine Endocrine: Reports fatigue, Denies weight change - Hematologic/Lymphatic Comment: none - Allergic/Immunologic Allergic/Immunologic: Reports seasonal allergies Past Medical History Past Medical History: Asthma, Cancer, Osteoarthritis (OA) Additional Past Medical History / Comment(s): Fell Feb 2019, hurt back, still having issues. Allergies. Hx right breast cancer 1995. Heartburn. History of Any Multi-Drug Resistant Organisms: None Reported Past Surgical History: Breast Surgery, Section Additional Past Surgical History / Comment(s): Section X2, right mastectomy with reconstructive surgery, Mediport placed and removed. Additional Past Anesthesia/Blood Transfusion Reaction / Comment(s): No BP or IV starts or Blood Work in right arm. Difficult IV start. Past Psychological History: No Psychological Hx Reported Smoking Status: Former smoker Past Alcohol Use History: Occasional Additional Past Alcohol Use History / Comment(s): Has been smoking for 40 yrs <1ppd. Quit June 2021 Past Drug Use History: None Reported - Past Family History Mother Family Medical History: No Reported History Medications and Allergies Home Medications Medication Instructions Recorded Confirmed Type Cetirizine HCl 10 mg PO DAILY 10/11/21 10/26/21 History Albuterol Inhaler [Ventolin Hfa 1 puff PO DIRECTED PRN 10/26/21 10/26/21 History Inhaler] Fluticasone Nasal [place] [Flonase 1 spray NASAL DAILY 10/26/21 10/26/21 History Nasal [place]] Meloxicam [Mobic] 15 mg PO DAILY 10/26/21 10/26/21 History Allergies Allergy/AdvReac Type Severity Reaction Status Date / Time doxycycline Allergy Vomiting Verified 10/26/21 14:47 Tape Allergy "Eats Skin" Uncoded 10/26/21 14:47 Objective - Constitutional General appearance: Present: cooperative - EENT Eyes: Present: EOMI ENT: Present: hearing grossly normal - Neck Neck: Present: normal ROM - Respiratory Respiratory: bilateral: CTA - Cardiovascular Rhythm: regular Heart sounds: normal: S1, S2 - Gastrointestinal General gastrointestinal: Present: soft - Integumentary Integumentary: Present: normal turgor - Musculoskeletal Musculoskeletal: Present: gait normal - Psychiatric Psychiatric: Present: A&O x's 3, appropriate affect, intact judgment & insight Objective - Vital Signs Vital signs: Vital Signs Temp 97.9 F 08/15/22 09:16 Pulse 88 08/15/22 09:16 Resp 18 08/15/22 09:16 BP 148/88 08/15/22 09:16 Pulse Ox 96 08/15/22 09:16 FiO2 Intake & Output 08/14/22 08/15/22 08/15/22 18:59 06:59 18:59 Weight 80.739 kg - Constitutional General appearance: Present: cooperative - EENT Eyes: Present: EOMI ENT: Present: hearing grossly normal - Neck Neck: Present: normal ROM - Respiratory Respiratory: bilateral: CTA - Cardiovascular Rhythm: regular Heart sounds: normal: S1, S2 - Gastrointestinal General gastrointestinal: Present: soft - Integumentary Integumentary: Present: normal turgor - Musculoskeletal Musculoskeletal: Present: gait normal - Psychiatric Psychiatric: Present: A&O x's 3, appropriate affect, intact judgment & insight - Additional findings Additional findings: Breast Exam: BRA: sports XL inspection: Right breast status post mastectomy and reexcision with ? subpectoral prosthesis and TRAM flap Dr. Sampson, left breast reduction with skin changes in the lower aspect of the breast and some mild erythema Palpation: Right breast/chest wall: No evidence of any recurrent cancer Right axilla: No evidence of any adenopathy of concern Left breast: Post reduction mammoplasty changes, the inferior skin of the breast is somewhat erythematous with some mild dimpling, multi-positional exam no discrete dominant masses at this time Left axilla: Axillary adenopathy has resolved no discrete lymph nodes of concern at this time Assessment and Plan Assessment: Impression: Stage IIIc left breast invasive ductal carcinoma status post neoadjuvant chemotherapy BRCA1 positive Skin biopsy of the breast negative for cancer [place] [address] considered BIRADS 3 1.2 centimeter lymph node was identified the cortex was thinned and appeared to be normal. This was adjacent to the biopsy clip. [place] [address] which was positive for metastatic poorly differentiated carcinoma. She had no suspicious groups of microcalcifications or masses were noted in the breast. On the ultrasound a 1.2 centimeter lymph node present in the left axilla. The cortex is thinned and appears normal. This is adjacent to the biopsy clip. Plan: Left breast mastectomy with needle localization and resection of prior positive lymph node of the left axilla, sentinel node injection on the left radiotracer, methylene blue injection on the left for dual tracer mapping, left sentinel node biopsy, removal of prior left axillary lymph node that was positive, possible left axillary node dissection Presentation of case at tumor board to determine if any further metastatic workup is necessary done on 07-30-22 The patient does not want reconstruction, she would like to be as flat as possible. clearance from Dr. Liriano Risk and benefits of the procedure were discussed with the patient. Risks include but are not limited to bleeding, infection, reaction to the anesthetic. Additionally because she has undergone a prior Morgan pattern reduction mammoplasty the integrity of the skin may be decreased and she may be at increased risk for skin necrosis. The patient understands and wishes to proceed. CC: Dr. Hernandez Additional CC's: Titus Hernandez
== END ==
LOC: WWCWWP 08:54
PROVIDERS: ATTEND Surgery
DX: D05.12 Intraductal carcinoma in situ of left breast (principal); M19.90 Unspecified osteoarthritis, unspecified site; J45.909 Unspecified asthma, uncomplicated; Z79.51 Long term (current) use of inhaled steroids; Z88.6 Allergy status to analgesic agent; Z91.048 Other nonmedicinal substance allergy status; Z87.891 Personal history of nicotine dependence

== ENCOUNTER 2022-08-27 06:59 | Day surgery (SDC) | payer BC ==
[2022-08-22 14:48] VITALS: BMI 31.8
[~2022-08-27 06:59] MED LIST changes: +DEXAMETHASONE SOD PHOSPHATE 4 MG/ML 1 ML VIAL IV ONE; +HEPARIN SODIUM,PORCINE/PF 5,000 UNIT/0.5 ML SYRINGE SQ PRN; -LACTATED RINGERS 1,000 ML IV SCH; +MIDAZOLAM 2 MG/2 ML VIAL IV PRN; +ONDANSETRON 4 MG/2 ML VIAL IVP ONE; +Pre Op ABX Message 1 EACH MISC MISCELLANE ONE
[2022-08-27] MEDS: LACTATED RINGERS 1,000 ML IV SCH ×2 (07:59→12:45)
[2022-08-27] MEDS ORDERED: ALPRAZolam 0.5 MG TAB ONE (08:02)
[2022-08-27] MEDS ORDERED: ALPRAZolam 0.5 MG TAB PO ONE (08:05)
--- NOTE | 2022-08-27 08:44 | P.NAPBC ---
NAPBC Queries - NAPBC Queries Was patient's case review presented at [facility] tumor board? If no, comment.: Yes Was patient's pathology reviewed at [facility]? If no, comment.: Yes Was breast conservation surgery offered? If no, comment.: Yes Was sentinel node biopsy offered? If no, comment.: Yes Was diagnosis confirmed by percutaneous core biopsy? If no, comment.: Yes Is patient mastectomy patient?: Yes Was a preop referral to reconstructive surgeon offered?: Yes Clinical Stage: left breast IIIC invasive ductal cancer status post lara-adjuvant chemotherapy
[2022-08-27] MEDS ORDERED: LIDOCAINE 1% INJ 10MG/ML (20 ML MDV) SQ ONE (08:50)
--- NOTE | 2022-08-27 09:19 | USB ---
EXAMINATION TYPE: US breast localization LT DATE OF EXAM: 08/27/2022 9:06 AM CLINICAL INDICATION:Female, 57 years old with history of R 92.8 Abnormal Mammogram; COMPARISON: Ultrasound 10/17/2021, CT 11/01/2021 PROCEDURE: The procedure was explained to the patient and all questions were answered. The potential risks inclu ding but not limited to bleeding, infection, and potential need for additional work up were discussed . Informed, written consent was obtained. The correct site was marked. A time out was performed. A mammogram guided wire localization was performed for the left axillary lymph node located in the ax illa of the left breast. This was described on the previous report. The skin was prepped in the usual manner. Local anesthetic was administered to the access site using approximately 5 mL of lidocaine. The abnormality was approached from the lateral aspect.?A Kopans needle was placed adjacent to the ab normality under mammographic guidance and confirmatory mammography images were obtained to document c orrect needle placement. ?Once the needle was documented to be in the correct location, the wire was deployed. The needle was removed. Post-procedure mammographic images were obtained to document positi oning. The wire was secured to the patient's skin with a dressing. The patient tolerated the procedur e well and left the department in good. Post procedure mammogram was not performed. Visualization during ultrasound was adequate. IMPRESSION: Successful mammogram guided wire localization of left axillary lymph node.
[2022-08-27] MEDS ORDERED: PROPOFOL 10 MG/ML 20 ML VIAL IV ONE (09:24)
[2022-08-27] MEDS ORDERED: PHENYLEPHRINE-0.9% NACL SYG 1,000 MCG/10 ML SYRINGE ONE (09:24)
[2022-08-27] MEDS ORDERED: SUCCINYLCHOLINE CHLORIDE 200 MG/10 ML VIAL IV ONE (09:24)
[2022-08-27] MEDS ORDERED: LIDOCAINE 2% INJ 20 MG/ML (2 ML VIAL) ONE (09:24)
[2022-08-27] MEDS ORDERED: HEPARIN SODIUM,PORCINE 5,000 UNIT/ML 1 ML VIAL SQ ONE (09:24)
[2022-08-27] MEDS ORDERED: fentaNYL (PF) 50 MCG/ML 2 ML AMP ONE (09:24)
[2022-08-27] MEDS ORDERED: SODIUM CHLORIDE 0.9% 100 ML BAG ONE (09:29)
[2022-08-27] MEDS ORDERED: SODIUM CHLORIDE 0.9% 50 ML with ceFAZolin 2,000 MG IV ONE ×2 (09:29)
[2022-08-27] MEDS ORDERED: ceFAZolin 1,000 MG VIAL ONE (09:29)
--- NOTE | 2022-08-27 09:34 | NM ---
EXAMINATION TYPE: NM sentinel node injection DATE OF EXAM: 08/27/2022 COMPARISON: NONE CLINICAL INDICATION: Female, 57 years old with history of LEFT BREAST CA; TECHNIQUE AND FINDINGS: The procedure of sentinel lymph node injection was explained to the patient. The benefits, alternatives, and risks were discussed. An informed consent was then obtained. Overlying skin is cleaned with sterile alcohol. Following this, 455 uCi Tc99m Tilmanocept was inject ed in the upper outer aspect of the left nipple intradermally. The patient tolerated the procedure well without any immediate complication. The patient was kept in the radiology department for short stay after the procedure and then taken to surgery for surgical p rocedure what is presumed intraoperative gamma probe will be used for sentinel lymph node detection. IMPRESSION: Left breast radiotracer injection for sentinel node localization as above.
--- NOTE | 2022-08-27 12:21 | P.OP ---
Date of Procedure: 08/27/22 Preoperative Diagnosis: Left breast invasive ductal carcinoma status post neoadjuvant chemotherapy Postoperative Diagnosis: Same Procedure(s) Performed: Left mastectomy, axillary mapping, needle localization of prior positive lymph node with resection in the operating room, resection of superficial axillary lymph nodes Anesthesia: MARCEL Surgeon: Pretty Samson Estimated Blood Loss (ml): 30 IV fluids (ml): 850 Pathology: other (Left breast and axillary tissue) Condition: stable Disposition: floor Indications for Procedure: Left breast invasive ductal carcinoma status post neoadjuvant chemotherapy Operative Findings: Dense breast tissue with post-neoadjuvant tissue changes and inflammation Description of Procedure: The patient is a 57-year-old white female status post neoadjuvant therapy for a stage III left breast invasive ductal carcinoma. A core biopsy was done to make the diagnosis as well as a biopsy of left axillary lymph node which was positive as well. Preoperatively the patient was seen in the radiology department where needle localization of the suspicious lymph node and clip for the node was placed. Additionally radiotracer was injected in the periareolar region. The patient was brought to the operative suite and following induction of anesthesia 2 mL of methylene blue were injected in the periareolar region for dual tracer injection. The breast was massaged for approximately 5 minutes. It is important that the patient had undergone a prior left reduction mammoplasty and there were some edematous skin changes in the inferior flaps. The left breast and axilla were prepped and draped in a sterile fashion. The superior and inferior skin flaps were developed. The tissue was dense and edematous. There was subcutaneous vessels present which needed to be cauterized and this was done using the Harmonic scalpel. After the superior and inferior flaps were developed the integrity of the tissue was evaluated. We were able to trim the inferior flap to obtain better integrity of the tissue. The breast was removed from medial to lateral off the pectoralis muscle. Hemostasis was attained using the electrocautery device as well as the Harmonic scalpel. The breast was removed and a superior suture was placed which was short and a long lateral suture was placed for orientation. The neoprobe was used to evaluate the axilla. There was no increased uptake in the axilla with the radiotracer and there wasn't any visible blue dye. This was felt to be secondary to the dense post surgical changes from the reduction mammoplasty as well as neoadjuvant t issue changes. The axilla was entered and we followed the pectoralis minor muscle up towards the axillary vessels. The area of where the needle had been placed was evaluated and the needle was brought out into the tissues. The tissue was swept inferiorly and the tissue which was removed was that which contained the hook of the needle. Radiograph of the specimen revealed the lymph node of concern had been removed as well as the clip. Additional axillary lymph nodes were noted to be present in the tissue by palpation. No other additional adenopathy of concern was palpated in the axilla. The dissection of axillary tissue was from the area of the axillary vein inferiorly being careful to preserve the thoracodorsal and long thoracic nerves. After we were assured that hemostasis was attained the wound was well irrigated. Again vessels in this area were cauterized using the Harmonic scalpel as well as suture ligation. 2 ZHENG drains were placed; one in the axilla and one under the flaps. These were secured using a nylon suture. The flaps were brought together using interrupted 3-0 Vicryl suture. This was followed by 3-0 running subcutaneous suture and a 4-0 Monocryl suture. Rosendo were then placed. The patient tolerated the procedure in stable condition. All instrument and sponge counts were correct at the end of the case.
[2022-08-27] MEDS ORDERED: HYDROmorphone 1 MG/ML 1 ML SYRINGE IVP PRN (12:22)
[2022-08-27] MEDS ORDERED: ONDANSETRON 4 MG/2 ML VIAL IVP PRN (12:22)
[2022-08-27] MEDS ORDERED: NALOXONE 0.4 MG/ML 1 ML VIAL IV PRN (12:22)
[2022-08-27] MEDS: HYDROmorphone 0.5 MG/0.5 ML SYRINGE IVP PRN ×2 (13:05→13:15)
--- NOTE | 2022-08-27 15:04 | MM ---
Electronically signed and approved by: Gary Mays, DO
[2022-08-27] MEDS: DEXTROSE 5%-0.45% NACL 1,000 ML IV SCH (15:43)
[2022-08-27] MEDS ORDERED: ALBUTEROL HFA INHALER INHALATION PRN (15:59)
[2022-08-27] MEDS ORDERED: GABAPENTIN 300 MG CAP PO PRN (15:59)
[2022-08-27] MEDS: HEPARIN SODIUM,PORCINE/PF 5,000 UNIT/0.5 ML SYRINGE SQ SCH (16:57)
[2022-08-27] MEDS: HYDROcodone/APAP 5-325MG 1 EACH TAB PO PRN (17:04)
[2022-08-27] MEDS: ALBUTEROL NEBULIZED 2.5 MG/3 ML INHALATION SCH ×2 (17:53→20:42)
[2022-08-27] MEDS ORDERED: ALBUTEROL NEBULIZED 2.5 MG/3 ML INHALATION PRN (22:09)
[2022-08-28] MEDS: HYDROcodone/APAP 5-325MG 1 EACH TAB PO PRN ×3 (00:31→10:37)
[2022-08-28] MEDS: HEPARIN SODIUM,PORCINE/PF 5,000 UNIT/0.5 ML SYRINGE SQ SCH ×2 (00:31→07:45)
[2022-08-28] MEDS: DEXTROSE 5%-0.45% NACL 1,000 ML IV SCH (00:32)
[2022-08-28] MEDS ORDERED: LEVOTHYROXINE 100 MCG TAB PO SCH (06:30)
[2022-08-28 06:50] LABS: Basophils % (A) 0 %; Eosinophils # (A) 0.1 k/uL (0-0.7); Eosinophils % (A) 1 %; HCT 33.5 % (34.0-46.0); HGB 11.1 gm/dL (11.4-16.0); Lymphocytes % (A) 14 %; MCH 32.7 pg (25.0-35.0); MCHC 33.3 g/dL (31.0-37.0); MCV 98.3 fL (80.0-100.0); Mean Platelet Volume 7.4; Monocytes # (A) 0.3 k/uL (0-1.0); Monocytes % (A) 4 %; Neutrophils # (A) 5.5 k/uL (1.3-7.7); Neutrophils % (A) 78 %; Platelet Count 174 k/uL (150-450); RDW 13.6 % (11.5-15.5)
[2022-08-28] MEDS ORDERED: PANTOPRAZOLE 40 MG TABLET PO SCH (07:30)
[2022-08-28 07:40] VITALS: BP 143/76; PULSE 75; RESP 17; TEMP 97.9
[2022-08-28] MEDS ORDERED: LORATADINE 10 MG TAB PO SCH (09:00)
--- NOTE | 2022-08-28 09:07 | P.PN ---
Subjective Progress Note Date: 08/28/22 Principal diagnosis: Left breast invasive ductal carcinoma POD #1 Milagros is a 57-year-old white female status post left breast mastectomy and axillary node resection postoperative day #1. Postoperatively she is doing well. She is tolerating her diet without difficulty. Hemoglobin 11.1. ZHENG output 30 mL serous in nature. Objective - Vital Signs Vital signs: Vital Signs Temp 97.9 F 08/28/22 07:39 Pulse 75 08/28/22 07:39 Resp 17 08/28/22 07:39 BP 143/76 08/28/22 07:39 Pulse Ox 96 08/28/22 07:39 FiO2 Intake & Output 08/27/22 08/28/22 08/28/22 18:59 06:59 18:59 Intake Total 1300 1350 Output Total 30 115 Balance 1270 1235 Weight 79.9 kg Intake: IV 1300 Intake, IV Titration 1000 Amount Dextrose 5%-0.45% NaCl 1, 1000 000 ml @ 100 mls/hr IV . Q10H KIRBY Rx#:[id number] Oral 350 Output: Drainage 115 Left Chest 1 70 Left Chest 2 45 Estimated Blood Loss 30 Other: # Voids 1 - Constitutional General appearance: Present: cooperative - EENT Eyes: Present: EOMI ENT: Present: hearing grossly normal - Neck Neck: Present: normal ROM - Respiratory Respiratory: bilateral: CTA - Cardiovascular Heart sounds: normal: S1, S2 - Integumentary Integumentary Comment(s): Incision clean and dry no evidence of seroma or hematoma there is some mild ecchymosis at the upper outer aspect of the superior flap ZHENG drains in place serosanguineous output total of 30 mL - Psychiatric Psychiatric: Present: A&O x's 3, appropriate affect, intact judgment & insight - Labs CBC & Chem 7: 08/28/22 06:29 Labs: Abnormal Lab Results - Last 24 Hours (Table) 08/28/22 Range/Units 06:29 RBC 3.40 L (3.80-5.40) m/uL Hgb 11.1 L (11.4-16.0) gm/dL Hct 33.5 L (34.0-46.0) % Assessment and Plan Assessment: Impression: Patient doing well at this time Plan: Discharge home to be followed as an outpatient Teaching drain care, drain and record twice a day and as needed CC: Dr. Liriano
--- NOTE | 2022-08-28 16:51 | P.CONS ---
History of Present Illness - Reason for Consult Consult date: 08/27/22 - History of Present Illness This is a 57 year old female with medical history of asthma, thyroid disorder, arthritis, gastroesophageal reflux history of right breast cancer with mastectomy and reconstructive surgery back in 1995. Current diagnosis of left sided breast cancer s/p chemotherapy. Patient is postoperative day #1 left mastectomy secondary to left breast invasive ductal carcinoma patient also underwent axillary mapping, lymph node resection. Patient is evaluated on the medical floor today postoperative day #1 and currently reporting pain is minimal. Patient is sitting up and is denying shortness of breath and no chest pain. Has been cleared by general surgery for DC home today and follow up in the office. REVIEW OF SYSTEMS: CONSTITUTIONAL: No fever, no malaise, no fatigue. HEENT: No recent visual problems or hearing problems. Denied any sore throat. CARDIOVASCULAR: No chest pain, orthopnea, PND, no palpitations, no syncope. PULMONARY: No shortness of breath, no cough, no hemoptysis. GASTROINTESTINAL: No diarrhea, no nausea, no vomiting, no abdominal pain. NEUROLOGICAL: No headaches, no weakness, no numbness. HEMATOLOGICAL: Denies any bleeding or petechiae. GENITOURINARY: Denies any burning micturition, frequency, or urgency. MUSCULOSKELETAL/RHEUMATOLOGICAL: Denies any joint pain, swelling, or any muscle pain. ENDOCRINE: Denies any polyuria or polydipsia. The rest of the 14-point review of systems is negative. PHYSICAL EXAMINATION: GENERAL: The patient is alert and oriented x3, not in any acute distress. Well developed, well nourished. HEENT: Pupils are round and equally reacting to light. EOMI. No scleral icterus. No conjunctival pallor. Normocephalic, atraumatic. No pharyngeal erythema. No thyromegaly. CARDIOVASCULAR: S1 and S2 present. No murmurs, rubs, or gallops. PULMONARY: Chest is clear to auscultation, no wheezing or crackles. Post surgical dressings intact and chest wall is ROMINA wrapped. ABDOMEN: Soft, nontender, nondistended, normoactive bowel sounds. No palpable organomegaly. MUSCULOSKELETAL: No joint swelling or deformity. EXTREMITIES: No cyanosis, clubbing, or pedal edema. NEUROLOGICAL: Gross neurological examination did not reveal any focal deficits. SKIN: No rashes. Assessment Left breast invasive ductal carcinoma status post left mastectomy and lymph node biopsy History of right breast cancer with mastectomy History of asthma with no acute exacerbation History of GERD Thyroid disordered Arthritis GI prophyalxis DVT prophylaxis Full Code Plan Continue pain regimen and bowel regimen Encourage incentive spirometer Patient cleared medically for D/C home to follow up with PCP Dr. Liriano and Dr. Samson in the office Thank you for this consultation The impression and plan of care has been dictated by Cecy Villanueva, Nurse Practitioner as directed. Dr. Ynes MD I have performed a history and physical examination and medical decision making of this patient, discussed the same with the dictator, and agree with the dictators assessment and plan as written, documented as a scribe. Based on total visit time, I have performed more than 50% of this visit. Past Medical History Past Medical History: Asthma, Cancer, GERD/Reflux, Osteoarthritis (OA), Thyroid Disorder Additional Past Medical History / Comment(s): Fell Feb 2019-back pain. Seasonal Allergies. Hx right breast cancer 1995. Left breast cancer 2022. History of Any Multi-Drug Resistant Organisms: None Reported Past Surgical History: Breast Surgery, Section, Orthopedic Surgery Additional Past Surgical History / Comment(s): Section X2, right mastectomy with reconstructive surgery, Mediport placed and removed, since replaced. Right ankle surgery with plate. Past Anesthesia/Blood Transfusion Reactions: No Reported Reaction Additional Past Anesthesia/Blood Transfusion Reaction / Comm: No BP or IV starts or Blood Work in right arm. Difficult IV start. Past Psychological History: No Psychological Hx Reported Smoking Status: Former smoker Past Alcohol Use History: Occasional Additional Past Alcohol Use History / Comment(s): Has been smoking for 40 yrs <1ppd. Quit June 2021 Past Drug Use History: None Reported - Past Family History Mother Family Medical History: No Reported History Medications and Allergies Home Medications Medication Instructions Recorded Confirmed Type Cetirizine HCl 10 mg PO DAILY 10/11/21 08/27/22 History Albuterol Inhaler [Ventolin Hfa 1 puff PO DIRECTED PRN 10/26/21 08/27/22 History Inhaler] Fluticasone Nasal [place] [Flonase 1 spray NASAL DAILY 10/26/21 08/27/22 History Nasal [place]] Omeprazole 40 mg PO DAILY 07/05/22 08/27/22 History Albuterol Nebulized [Ventolin 2.5 mg INHALATION Q4H 07/11/22 08/27/22 History Nebulized] Levothyroxine Sodium 100 mcg PO DAILY 07/11/22 08/27/22 History Gabapentin 600 mg PO TID PRN 08/15/22 08/27/22 History HYDROcodone/APAP 5-325MG [[place] 5] 1 - 2 each PO Q4H PRN #20 tab 08/28/22 Rx Allergies Allergy/AdvReac Type Severity Reaction Status Date / Time doxycycline Allergy Vomiting Verified 08/27/22 07:34 Tape Allergy "Eats Skin" Uncoded 08/27/22 07:34 Physical Exam Vitals: Vital Signs Temp Pulse Pulse Resp BP BP BP 08/28/22 07:39 97.9 F 75 17 08/28/22 00:47 98.2 F 60 16 08/27/22 20:30 98.4 F 67 18 08/27/22 15:49 98.2 F 68 16 08/27/22 15:19 63 16 08/27/22 14:49 76 16 08/27/22 14:34 69 16 08/27/22 14:19 70 16 08/27/22 14:04 97.9 F 77 16 08/27/22 13:42 74 16 08/27/22 13:30 78 16 08/27/22 13:15 72 16 08/27/22 13:00 68 16 08/27/22 12:45 74 16 08/27/22 12:30 63 16 161/87 08/27/22 12:24 97.0 F L 68 12 160/74 08/27/22 09:01 98.1 F 59 L 16 133/77 08/27/22 08:36 98.1 F 77 16 152/96 08/27/22 07:56 97.0 F L 66 14 141/68 BP Pulse Ox 08/28/22 07:39 143/76 96 08/28/22 00:47 118/81 96 08/27/22 20:30 120/83 97 08/27/22 15:49 127/77 97 08/27/22 15:19 136/65 08/27/22 14:49 135/86 98 08/27/22 14:34 135/86 97 08/27/22 14:19 136/69 98 08/27/22 14:04 171/76 98 08/27/22 13:42 142/76 96 08/27/22 13:30 142/73 94 L 08/27/22 13:15 157/75 96 08/27/22 13:00 180/89 93 L 08/27/22 12:45 176/87 100 08/27/22 12:30 100 08/27/22 12:24 99 08/27/22 09:01 08/27/22 08:36 08/27/22 07:56 95 Intake and Output 08/27/22 08/28/22 08/28/22 22:59 06:59 14:59 Intake Total 200 1150 Output Total 85 30 Balance 115 1120 Intake: Intake, IV Titration 1000 Amount Dextrose 5%-0.45% NaCl 1, 1000 000 ml @ 100 mls/hr IV . Q10H KIRBY Rx#:[id number] Oral 200 150 Output: Drainage 85 30 Left Chest 1 50 20 Left Chest 2 35 10 Other: # Voids 1 Results CBC & Chem 7: 08/28/22 06:29 Labs: Abnormal Lab Results - Last 24 Hours (Table) 08/28/22 Range/Units 06:29 RBC 3.40 L (3.80-5.40) m/uL Hgb 11.1 L (11.4-16.0) gm/dL Hct 33.5 L (34.0-46.0) % Assessment and Plan Time with Patient: Less than 30
== END 2022-08-28 11:15 | disposition home or self-care (01) ==
LOC: OR 06:59 → 4FBP 12:29 → OR 08-28 11:15
PROVIDERS: ATTEND Surgery
DX: C50.212 Malignant neoplasm of upper-inner quadrant of left female breast (principal); Z92.21 Personal history of antineoplastic chemotherapy; J45.909 Unspecified asthma, uncomplicated; M19.90 Unspecified osteoarthritis, unspecified site; E07.9 Disorder of thyroid, unspecified; K21.9 Gastro-esophageal reflux disease without esophagitis; Z79.890 Hormone replacement therapy; Z79.51 Long term (current) use of inhaled steroids; Z79.899 Other long term (current) drug therapy; Z88.1 Allergy status to other antibiotic agents; Z88.8 Allergy status to other drugs, medicaments and biological substances
CPT/HCPCS: 19301; 38525; 85025; 88342; 88307; 88309; 88341; 76098; 19285; 38792; C1819; A9520; J0330; J1644 ×3; J1100; J2405; J0690; J2001 ×2; J3010; J2370; J2704; J1170

== ENCOUNTER → 2022-09-05 | Outpatient (CLI) | payer BC ==
--- NOTE | 2022-09-05 11:17 | P.PN ---
Progress Note - Text Progress Note Date: 09/05/22 Milagros is a 57-year-old white female status post left breast mastectomy and axillary tissue resection on . 6 lymph nodes were removed with focal treatment effect status post neoadjuvant chemotherapy negative for any metastatic cancer. Additionally the left mastectomy revealed focal residual invasive ductal microcarcinoma with fibrotic treatment effect. All margins were negative and all margins were greater than 2 mm. Examination: Lungs: Clear Heart: Regular rate and rhythm Incision: Clean and dry ZHENG output approximately 40 mL per drain for 24 hours Impression: Patient doing well at this time Plan: Removed every other staple Leave drains in place until next week Continue wound care as patient is doing Follow-up with medical oncology Follow-up radiation oncology CC: Dr. Liriano
== END ==
LOC: WWCWWP 11:06
PROVIDERS: ATTEND Surgery
DX: C50.212 Malignant neoplasm of upper-inner quadrant of left female breast (principal); Z90.12 Acquired absence of left breast and nipple; Z91.048 Other nonmedicinal substance allergy status; Z88.6 Allergy status to analgesic agent

== ENCOUNTER → 2022-09-11 | Outpatient (CLI) | payer BC ==
[2022-09-11 10:51] VITALS: BP 157/94; PULSE 80; RESP 17; TEMP 98
--- NOTE | 2022-09-11 11:02 | P.PN ---
Progress Note - Text Progress Note Date: 09/11/22 Milagros is a 57-year-old white female status post left breast mastectomy and axillary tissue resection on . 6 lymph nodes were removed with focal treatment effect status post neoadjuvant chemotherapy negative for any metastatic cancer. Additionally the left mastectomy revealed focal residual invasive ductal microcarcinoma with fibrotic treatment effect. All margins were negative and all margins were greater than 2 mm. Examination: Lungs: Clear Heart: Regular rate and rhythm Incision: Clean and dry ZHENG #2 is approximately 20 mL per day ZHENG #1 is approximately 50 mL Impression: Patient doing well at this time Plan: Remove the remainder of the ginette Remove ZHENG #2 Follow-up next week for removal of ZHENG #1 Continue wound care as patient is doing Follow-up with medical oncology Follow-up radiation oncology CC: Dr. Liriano
== END ==
LOC: WWCWWP 10:22
PROVIDERS: ATTEND Surgery
DX: D05.12 Intraductal carcinoma in situ of left breast (principal); Z90.12 Acquired absence of left breast and nipple; Z91.048 Other nonmedicinal substance allergy status; Z88.1 Allergy status to other antibiotic agents

== ENCOUNTER → 2022-09-19 | Outpatient (CLI) | payer BC ==
[2022-09-19 09:57] VITALS: BP 154/110; PULSE 86; RESP 18; TEMP 97.9
--- NOTE | 2022-09-19 10:02 | P.PN ---
Progress Note - Text Progress Note Date: 09/19/22 Milagros is a 57-year-old white female status post left breast mastectomy and axillary tissue resection on . 6 lymph nodes were removed with focal treatment effect status post neoadjuvant chemotherapy negative for any metastatic cancer. Additionally the left mastectomy revealed focal residual invasive ductal microcarcinoma with fibrotic treatment effect. All margins were negative and all margins were greater than 2 mm. Patient is complaining of some decreased mobility of her left upper arm. She is presently seen physical therapy and this is improving. Examination: Lungs: Clear Heart: Regular rate and rhythm Incision: Clean and dry ZHENG #1 17 cc/day Impression: Patient doing well at this time Plan: Remove ZHENG 1 Follow-up 4 months Follow-up with medical oncology Follow-up radiation oncology Continue physical therapy CC: Dr. Liriano
== END ==
LOC: WWCWWP 09:44
PROVIDERS: ATTEND Surgery
DX: D05.12 Intraductal carcinoma in situ of left breast (principal); Z90.12 Acquired absence of left breast and nipple; Z88.1 Allergy status to other antibiotic agents; Z91.048 Other nonmedicinal substance allergy status

== ENCOUNTER 2022-10-01 10:43 | Inpatient (IN) | payer BC ==
[2022-10-01] MEDS ORDERED: ONDANSETRON 4 MG/2 ML VIAL IVP STA (11:16)
[2022-10-01] MEDS ORDERED: SODIUM CHLORIDE 0.9% 1,000 ML IV ONE ×2 (11:16→13:44)
[2022-10-01] MEDS ORDERED: diphenhydrAMINE 50 MG/ML 1 ML VIAL IVP STA (11:21)
--- NOTE | 2022-10-01 11:21 | ED ---
General Adult HPI - General Chief complaint: Headache Stated complaint: Headache, Vomiting Time Seen by Provider: 10/01/22 11:00 Source: patient, RN notes reviewed, old records reviewed Mode of arrival: ambulatory Limitations: no limitations - History of Present Illness Initial comments: This is a 57-year-old female presents emergency Department complaining of a headache. Patient states the headache started on steroids mostly left-sided forehead. Patient states on Friday she started vomiting. Patient states she did vomit on the way here but hasn't vomited since per patient remains nauseous. Patient states the headaches about a 7 out of 10. She has had headaches in the past but this is lasting longer than normal. Patient has a past medical history of a right mastectomy 25 years ago and in May had a left mastectomy. Patient received chemotherapy in May she supposed to start radiation tomorrow. Patient denies any fever chills per patient denies any numbness or weakness. Patient denies any chest pain difficulty breathing shortness of breath per patient denies any abdominal pain. - Related Data Home Medications Medication Instructions Recorded Confirmed Cetirizine HCl 10 mg PO DAILY 10/11/21 10/01/22 Albuterol Inhaler [Ventolin Hfa 1 - 2 puff PO RT-Q6H PRN 10/26/21 10/01/22 Inhaler] Fluticasone Nasal [place] [Flonase 1 spray NASAL DAILY 10/26/21 10/01/22 Nasal [place]] Omeprazole 40 mg PO DAILY 07/05/22 10/01/22 Albuterol Nebulized [Ventolin 2.5 mg INHALATION RT-Q4H PRN 07/11/22 10/01/22 Nebulized] Levothyroxine Sodium [Synthroid] 100 mcg PO DAILY 10/01/22 10/01/22 Allergies Allergy/AdvReac Type Severity Reaction Status Date / Time doxycycline Allergy Vomiting Verified 10/01/22 12:38 Iodinated Contrast Media Allergy Rash/Hives Verified 10/01/22 12:38 Tape Allergy "Eats Skin" Uncoded 10/01/22 12:38 Review of Systems ROS Statement: Those systems with pertinent positive or pertinent negative responses have been documented in the HPI. ROS Other: All systems not noted in ROS Statement are negative. Past Medical History Past Medical History: Asthma, Cancer, GERD/Reflux, Osteoarthritis (OA) Additional Past Medical History / Comment(s): Feb 2019, hurt back, still having issues. Allergies. Hx right breast cancer 1995. Heartburn. History of Any Multi-Drug Resistant Organisms: None Reported Past Surgical History: Breast Surgery, Section, Orthopedic Surgery Additional Past Surgical History / Comment(s): Section X2, right mastectomy with reconstructive surgery, Mediport placed and removed replaced. ankle Past Anesthesia/Blood Transfusion Reactions: No Reported Reaction Additional Past Anesthesia/Blood Transfusion Reaction / Comment(s): No BP or IV starts or Blood Work in right arm. Difficult IV start. Past Psychological History: No Psychological Hx Reported Smoking Status: Former smoker Past Alcohol Use History: Occasional Past Drug Use History: None Reported - Past Family History Mother Family Medical History: No Reported History General Exam - General Exam Comments Initial Comments: GENERAL: Patient is well-developed and well-nourished. Patient is nontoxic and well- hydrated and is in mild distress. Patient is able to laugh and joke during the interview ENT: Neck is soft and supple. No significant lymphadenopathy is noted. Oropharynx is clear. Moist mucous membranes. Neck has full range of motion without eliciting any pain. EYES: The sclera were anicteric and conjunctiva were pink and moist. Extraocular movements were intact and pupils were equal round and reactive to light. Eyeli ds were unremarkable. PULMONARY: Unlabored respirations. Good breath sounds bilaterally. No audible rales rhonchi or wheezing was noted. CARDIOVASCULAR: There is a regular rate and rhythm without any murmurs gallops or rubs. ABDOMEN: Soft and nontender with normal bowel sounds. SKIN: Skin is clear with no lesions or rashes and otherwise unremarkable. NEUROLOGIC: Patient is alert and oriented x3. Cranial nerves II through XII are grossly intact. Motor and sensory are also intact. Normal speech, volume and content. Symmetrical smile. MUSCULOSKELETAL: Normal extremities with adequate strength and full range of motion. LYMPHATICS: No significant lymphadenopathy is noted PSYCHIATRIC: Normal psychiatric evaluation. Limitations: no limitations Course Vital Signs 10/01/22 10/01/22 10:53 11:31 Temperature 97.2 F L Pulse Rate 77 61 Respiratory 18 12 Rate Blood Pressure 170/118 129/70 O2 Sat by Pulse 98 98 Oximetry Medical Decision Making - Medical Decision Making Was pt. sent in by a medical professional or institution (, PA, LABEL CODER, urgent care, hospital, or residential...) When possible be specific @ -[No] Did you speak to anyone other than the patient for history (EMS, parent, family, police, friend...)? What history was obtained from this source @ -[No] Did you review nursing and triage notes (agree or disagree)? Why? @ -[I reviewed and agree with nursing and triage notes] Were old charts reviewed (outside hosp., previous admission, EMS record, old EKG, old radiological studies, urgent care reports/EKG's, residential records)? Report findings @ -I reviewed prior lab work from [facility] patient Differential Diagnosis (chest pain, altered mental status, abdominal pain women, abdominal pain men, vaginal bleeding, weakness, fever, dyspnea, syncope, headache, dizziness, GI bleed, back pain, seizure, CVA, palpatations, mental health, musculoskeletal)? @ -Differential Headache: Migraine, tension, cluster, carbon monoxide, central venous thrombosis, pension karma temporal arteritis, acute closure glaucoma, intercranial hemorrhage, mastoiditis, sinusitis, head injury, this is not meant to be an all-inclusive list. EKG interpreted by me (3pts min.). @ -[As above] X-rays interpreted by me (1pt min.). @ -[None done] CT interpreted by me (1pt min.). @ -CT of the brain with and without contrast showed a mass in the left posterior region of the brain surrounded by some vasogenic edema U/S interpreted by me (1pt. min.). @ -[None done] What testing was considered but not performed or refused? (CT, X-rays, U/S, labs)? Why? @ -[None] What meds were considered but not given or refused? Why? @ -[None] Did you discuss the management of the patient with other professionals (professionals i.e. , PA, LABEL CODER, lab, RT, psych nurse, social service technician, urban redevelopment specialist, teacher, sba business development officer, block and case maker)? Give summary @ -I spoke with sheet he agreed to admit the patient Was smoking cessation discussed for >3mins.? @ -[No] Was critical care preformed (if so, how long)? @ -35 minutes Were there social determinants of health that impacted care today? How? (Homele ssness, low income, unemployed, alcoholism, drug addiction, transportation, low edu. Level, literacy, decrease access to med. care, custodial, rehab)? @ -[No] Was there de-escalation of care discussed even if they declined (Discuss DNR or withdrawal of care, Hospice)? DNR status @ -[No] What co-morbidities impacted this encounter? (DM, HTN, Smoking, COPD, CAD, Cancer, CVA, ARF, Chemo, Hep., AIDS, mental health diagnosis, sleep apnea, morbid obesity)? @ -Breast cancer Was patient admitted / discharged? Hospital course, mention meds given and route, prescriptions, significant lab abnormalities, going to OR and other pertinent info. @ -Patient's CAT scan of the brain that showed a tumor with vasogenic edema surrounding it. Patient started on Decadron. I spoke with Dr. reina he agreed to admit the patient I consulted oncology Undiagnosed new problem with uncertain prognosis? @ -Brain tumor with vasogenic edema Drug Therapy requiring intensive monitoring for toxicity (Heparin, Nitro, Insulin, Cardizem)? @ -[No] Were any procedures done? @ -[No] Diagnosis/symptom? @ -Brain tumor Acute, or Chronic, or Acute on Chronic? @ -Acute Uncomplicated (without systemic symptoms) or Complicated (systemic symptoms)? @ -Complicated Side effects of treatment? @ -[No] Exacerbation, Progression, or Severe Exacerbation? @ -[No] Poses a threat to life or bodily function? How? (Chest pain, [place], [place], pneumonia, PE, COPD, DKA, ARF, appy, cholecystitis, CVA, Diverticulitis, Homicidal, Suicidal, threat to staff... and all critical care pts) @ -Yes this could lead to pressure on the brain and significant disability or - Lab Data Result diagrams: 10/01/22 12:15 10/01/22 12:15 Lab Results 10/01/22 10/01/22 Range/Units 12:15 12:15 WBC 6.4 (3.8-10.6) k/uL RBC 4.62 (3.80-5.40) m/uL Hgb 14.3 D (11.4-16.0) gm/dL Hct 41.4 (34.0-46.0) % MCV 89.5 D (80.0-100.0) fL MCH 30.8 (25.0-35.0) pg MCHC 34.5 (31.0-37.0) g/dL RDW 13.2 (11.5-15.5) % Plt Count 192 (150-450) k/uL MPV 7.3 Neutrophils % 81 % Lymphocytes % 13 % Monocytes % 3 % Eosinophils % 1 % Basophils % 0 % Neutrophils # 5.2 (1.3-7.7) k/uL Lymphocytes # 0.8 L (1.0-4.8) k/uL Monocytes # 0.2 (0-1.0) k/uL Eosinophils # 0.1 (0-0.7) k/uL Basophils # 0.0 (0-0.2) k/uL Poikilocytosis Slight Sodium 140 (137-145) mmol/L Potassium 3.7 (3.5-5.1) mmol/L Chloride 104 (98-107) mmol/L Carbon Dioxide 26 (22-30) mmol/L Anion Gap 10 mmol/L BUN 18 H (7-17) mg/dL Creatinine 0.65 (0.52-1.04) mg/dL Est GFR (CKD-EPI)AfAm >90 (>60 ml/min/1.73 sqM) Est GFR (CKD-EPI)NonAf >90 (>60 ml/min/1.73 sqM) Glucose 104 H (74-99) mg/dL Calcium 9.7 (8.4-10.2) mg/dL Total Bilirubin 0.8 (0.2-1.3) mg/dL AST 33 (14-36) U/L ALT 25 (4-34) U/L Alkaline Phosphatase 110 (38-126) U/L Total Protein 7.5 (6.3-8.2) g/dL Albumin 4.6 (3.5-5.0) g/dL Critical Care Time Critical Care Time: Yes Total Critical Care Time: 35 Disposition Clinical Impression: Malignant neoplasm metastatic to brain Disposition: ADMITTED IP TO THIS HOSP Referrals: Sisi Liriano MD [Primary Care Provider] - 1-2 days Time of Disposition: 13:44
[2022-10-01] MEDS ORDERED: FAMOTIDINE 20 MG/2 ML VIAL IV ONE (11:45)
[2022-10-01] MEDS ORDERED: methylPREDNISolone SOD SUCCI 125 MG/2 ML VIAL IV ONE (11:45)
[2022-10-01 12:33] LABS: Basophils % (A) 0 %; Eosinophils # (A) 0.1 k/uL (0-0.7); Eosinophils % (A) 1 %; HCT 41.4 % (34.0-46.0); Lymphocytes # (A) 0.8 k/uL (1.0-4.8); Lymphocytes % (A) 13 %; MCH 30.8 pg (25.0-35.0); MCHC 34.5 g/dL (31.0-37.0); Mean Platelet Volume 7.3; Monocytes # (A) 0.2 k/uL (0-1.0); Monocytes % (A) 3 %; Neutrophils # (A) 5.2 k/uL (1.3-7.7); Neutrophils % (A) 81 %; Platelet Count 192 k/uL (150-450); Poikilocytosis Slight; RBC 4.62 m/uL (3.80-5.40); RDW 13.2 % (11.5-15.5); WBC 6.4 k/uL (3.8-10.6)
[2022-10-01 12:37] LABS: HGB 14.3 gm/dL (11.4-16.0); MCV 89.5 fL (80.0-100.0)
[2022-10-01 12:38] LABS: ALT 25 U/L (4-34); AST 33 U/L (14-36); African American GFR (CKD) >90 (>60 ml/min/1.73 sqM); Albumin 4.6 g/dL (3.5-5.0); Alkaline Phosphatase 110 U/L (38-126); Anion Gap 10 mmol/L; Blood Urea Nitrogen 18 mg/dL (7-17); Calcium 9.7 mg/dL (8.4-10.2); Carbon Dioxide 26 mmol/L (22-30); Chloride 104 mmol/L (98-107); Glucose 104 mg/dL (74-99); Non-African American GFR(CKD) >90 (>60 ml/min/1.73 sqM); Potassium 3.7 mmol/L (3.5-5.1); Sodium 140 mmol/L (137-145); Total Bilirubin 0.8 mg/dL (0.2-1.3); Total Protein 7.5 g/dL (6.3-8.2)
--- NOTE | 2022-10-01 13:22 | CT ---
EXAMINATION TYPE: CT brain wo/w con DATE OF EXAM: 10/01/2022 COMPARISON: None INDICATION: Headache with vomiting DLP: 2316.8 mGycm, Automated exposure control for dose reduction was used. CONTRAST: None CT of the brain is performed utilizing 3 mm thick sections through the posterior fossa and 3 mm thick sections through the remaining calvarium. Study is performed within 24 hours of arrival to the hosp ital. No abnormal hyperdensity is present to suggest an acute intracranial hemorrhage. There is an irregularly enhancing mass within the left occipital lobe measuring 2.7 x 2.4 x 1.7 cm. T here appears to be a large cystic component superiorly with additional smaller cystic components lio cent inferior, posterior, and anterior to the enhancing lesion. The entire area measures 5.4 x 3.5 x 4.9 cm. There is some surrounding vasogenic edema present. This has mass effect on the occipital horn left lateral ventricle. No temporal horn dilatation is evident. No midline shift is evident. There m ay be some effacement of the left ambient cistern. Vasogenic edema extends into the proximal left tem poral lobe. No acute infarcts are evident. Vasogenic edema and mass causes some local effacement of the sulci of the left occipital lobe. Ventri cles and sulci are otherwise appropriate for the patient age. Paranasal sinuses and mastoid air cells within the [id number] are clear. IMPRESSIONS: 1. Heterogenous mass with cystic components in the left occipital lobe has some surrounding vasogen ic edema. This is effacing the local sulci and some mass effect on the left occipital horn lateral ve ntricle. Findings can be compatible with a metastatic lesion.
[2022-10-01] MEDS ORDERED: DEXAMETHASONE SOD PHOSPHATE 10 MG/ML 1 ML VIAL IVP STA (13:29)
[2022-10-01] MEDS: PANTOPRAZOLE 40 MG/10 ML VIAL IVP SCH (15:47)
[2022-10-01] MEDS: DEXAMETHASONE SOD PHOSPHATE 4 MG/ML 1 ML VIAL IVP SCH ×2 (18:03→23:20)
[2022-10-01] MEDS: HEPARIN SODIUM,PORCINE/PF 5,000 UNIT/0.5 ML SYRINGE SQ SCH (20:47)
--- NOTE | 2022-10-02 00:24 | HP ---
HISTORY AND PHYSICAL CHIEF COMPLAINT: Headache and vomiting. HISTORY OF PRESENT ILLNESS: This is a 57-year-old woman with a past medical history of multiple medical problems including asthma, history of breast cancer, was complaining of headache and vomiting. The patient came to [facility], found to have left occipital lesion with vasogenic edema, possibly mental status. There is no history of any fever, rigors, or chills. PAST MEDICAL HISTORY: 1. History of right breast cancer. 2. History of left breast cancer. 3. History of asthma. Rest of the history and rest of the chart is also reviewed. HOME MEDICATIONS: Reviewed include albuterol. Doses and rest of medications noted. ALLERGIES: Doxycycline. FAMILY HISTORY: No history of heart disease or strokes in the family. SOCIAL HISTORY: Previous history of smoking. REVIEW OF SYSTEMS: A 14-point review is negative except as mentioned earlier. PHYSICAL EXAMINATION: VITAL SIGNS: Pulse 61, blood pressure 129/70, respirations 12. HEENT: Conjunctivae normal. NECK: No jugular venous distention. CARDIOVASCULAR: S1 and S2 muffled. RESPIRATIONS: Breath sounds diminished at the bases. ABDOMEN: Soft, nontender. LEGS: No edema. NERVOUS SYSTEM: No focal deficits. SKIN: No ulcers or rashes. JOINTS: No active deforming arthropathy. LABORATORY DATA: Labs are reviewed. CT scan reviewed. ASSESSMENT: 1. Headache, vomiting with left occipital mass lesion with vasogenic edema possibly metastasis. 2. History of bilateral breast cancers. 3. Asthma. 4. History of gastroesophageal reflux disease. 5. History of degenerative joint disease. RECOMMENDATIONS: This is a 57-year-old woman who presented with multiple complex medical issues, we will monitor the patient closely. I recommend to continue current medications. We will initiate dexamethasone. Symptomatic treatment. Consult Dr. Hernandez. Prognosis guarded because of multiple complex medical issues. Further recommendations to follow. See orders for further details. Home medications will be continued once they are confirmed. MMODL / IJN: [id number] /
[2022-10-02] MEDS: DEXAMETHASONE SOD PHOSPHATE 4 MG/ML 1 ML VIAL IVP SCH ×2 (05:26→11:21)
[2022-10-02 08:50] LABS: Basophils % (A) 0 %; Eosinophils % (A) 0 %; HCT 40.3 % (34.0-46.0); HGB 13.7 gm/dL (11.4-16.0); Lymphocytes # (A) 0.6 k/uL (1.0-4.8); Lymphocytes % (A) 6 %; MCH 30.3 pg (25.0-35.0); MCHC 34.1 g/dL (31.0-37.0); Monocytes # (A) 0.3 k/uL (0-1.0); Monocytes % (A) 3 %; Neutrophils # (A) 9.3 k/uL (1.3-7.7); Neutrophils % (A) 91 %; Platelet Count 208 k/uL (150-450); Poikilocytosis Slight; RBC 4.53 m/uL (3.80-5.40); RDW 13.1 % (11.5-15.5); WBC 10.3 k/uL (3.8-10.6)
[2022-10-02] MEDS ORDERED: DEXAMETHASONE SOD PHOSPHATE 10 MG/ML 1 ML VIAL IVP SCH (09:00)
[2022-10-02 09:02] LABS: African American GFR (CKD) >90 (>60 ml/min/1.73 sqM); Anion Gap 12 mmol/L; Blood Urea Nitrogen 18 mg/dL (7-17); Calcium 9.7 mg/dL (8.4-10.2); Carbon Dioxide 22 mmol/L (22-30); Chloride 108 mmol/L (98-107); Glucose 129 mg/dL (74-99); Non-African American GFR(CKD) >90 (>60 ml/min/1.73 sqM); Potassium 4.2 mmol/L (3.5-5.1); Sodium 142 mmol/L (137-145)
[2022-10-02] MEDS: PANTOPRAZOLE 40 MG/10 ML VIAL IVP SCH (09:34)
[2022-10-02] MEDS: HEPARIN SODIUM,PORCINE/PF 5,000 UNIT/0.5 ML SYRINGE SQ SCH ×2 (09:35→20:59)
[2022-10-02] MEDS ORDERED: ALBUTEROL HFA INHALER INHALATION PRN (09:37)
[2022-10-02] MEDS ORDERED: ALBUTEROL NEBULIZED 2.5 MG/3 ML INHALATION PRN (09:37)
[2022-10-02] MEDS ORDERED: NON FORMULARY DRUG (Omeprazole [Omeprazole] 40 MG Capsule.Dr) PO SCH (09:45)
[2022-10-02] MEDS: LEVOTHYROXINE 100 MCG TAB PO SCH (10:37)
[2022-10-02] MEDS: FLUTICASONE 50MCG/SPRAY NASAL 16GM NASAL SCH (11:21)
--- NOTE | 2022-10-02 13:44 | PN ---
PROGRESS NOTE DATE OF SERVICE: 10/02/2022 SUBJECTIVE: This is a 57-year-old woman who was admitted with history of breast cancer occipital lobe. The patient had significant headache feeling better. Multiple consultants are following the patient closely. PAST MEDICAL HISTORY: Reviewed. REVIEW OF SYSTEMS: A 14-point review is negative except as mentioned earlier. CURRENT MEDICATIONS: Dexamethasone. Dose and rest of medications noted. PHYSICAL EXAMINATION: VITAL SIGNS: Pulse is 68, blood pressure 150/83, respirations 16. HEENT: Conjunctivae are normal. NECK: No jugular venous distention. CARDIOVASCULAR: S1 and S2 ABDOMEN: Soft. NERVOUS SYSTEM: Nonfocal. LABORATORY DATA: Labs are reviewed. IMAGING STUDIES: CT reviewed personally. ASSESSMENT: 1. Headache, vomiting and left occipital mass lesion with vasogenic edema, possibly metastasis. 2. History of bilateral breast cancers previously. 3. History of asthma. 4. History of gastroesophageal reflux disease. 5. Degenerative joint disease. 6. Multiple medical issues. RECOMMENDATIONS: Recommend to continue repeat labs. Continue dexamethasone. Monitor blood sugars and blood pressure closely. Closely follow with Oncology. I would also recommend Radiation/Oncology consultation also with Dr. Frye. Further recommendations to follow. See orders for further details. MMODL / IJN: [id number] / MTDD
[2022-10-02] MEDS: DEXAMETHASONE SOD PHOSPHATE 10 MG/ML 1 ML VIAL IVP SCH (18:29)
[2022-10-02] MEDS ORDERED: diphenhydrAMINE 50 MG CAP PO ONE (18:30)
--- NOTE | 2022-10-02 18:37 | P.CONS ---
History of Present Illness - Reason for Consult Consult date: 10/02/22 hx breast cancer Requesting physician: Lukas Berrios - Chief Complaint headache, n/v - History of Present Illness Patient is a 57 year old female with a significant history of stage IIIC triple negative breast cancer. She is a patient of Dr. Titus Hernandez. She is s/p 4 cycles of TC+pembrolizumab with clinical response in the left breast from 11/19- 02/19. And s/p 4 cycles of AC plus keytruda, completed in 05/2022. Left mastectomy on 08/27/2022 noted residual microinvasive disease with negative margins and no positive lymph nodes or other high risk features. Plan is for adjuvant radiation therapy, with Dr. Vuong. However apt was missed due to hospitalization. Due to BRCA1 mutation, we discussed that adjuvant treatment would be with 1 year of adjuvant oral olaparib twice daily once RT is completed. Patient presented to the emergency room for headache and nausea vomiting and lightheadedness over the last [address] brain revealed heterogeneous mass with cystic components in the left occipital lobe measuring 2.7 x 2.4 x 1.7 cm with some surrounding vasogenic edema. Patient has been started on Decadron. Patient is reporting persisting headache but improvement in nausea vomiting. Patient denies unilateral weakness, slurred speech, facial droop and visual disturbances. Review of Systems 10 point ROS is negative except as stated in the HPI Past Medical History Past Medical History: Asthma, Cancer, GERD/Reflux, Osteoarthritis (OA) Additional Past Medical History / Comment(s): Fell Feb 2019, hurt back, still having issues. Allergies. Hx right breast cancer 1995. Heartburn. History of Any Multi-Drug Resistant Organisms: None Reported Past Surgical History: Breast Surgery, Section, Orthopedic Surgery Additional Past Surgical History / Comment(s): Section X2, right mastectomy with reconstructive surgery, Mediport placed and removed replaced. ankle Past Anesthesia/Blood Transfusion Reactions: No Reported Reaction Additional Past Anesthesia/Blood Transfusion Reaction / Comm: No BP or IV starts or Blood Work in right arm. Difficult IV start. Past Psychological History: No Psychological Hx Reported Smoking Status: Former smoker Past Alcohol Use History: Occasional Past Drug Use History: None Reported - Past Family History Mother Family Medical History: No Reported History Medications and Allergies Home Medications Medication Instructions Recorded Confirmed Type Cetirizine HCl 10 mg PO DAILY 10/11/21 10/01/22 History Albuterol Inhaler [Ventolin Hfa 1 - 2 puff PO RT-Q6H PRN 10/26/21 10/01/22 H istory Inhaler] Fluticasone Nasal [place] [Flonase 1 spray NASAL DAILY 10/26/21 10/01/22 History Nasal [place]] Omeprazole 40 mg PO DAILY 07/05/22 10/01/22 History Albuterol Nebulized [Ventolin 2.5 mg INHALATION RT-Q4H PRN 07/11/22 10/01/22 History Nebulized] Levothyroxine Sodium [Synthroid] 100 mcg PO DAILY 10/01/22 10/01/22 History Allergies Allergy/AdvReac Type Severity Reaction Status Date / Time doxycycline Allergy Vomiting Verified 10/01/22 12:38 Iodinated Contrast Media Allergy Rash/Hives Verified 10/01/22 12:38 Tape Allergy "Eats Skin" Uncoded 10/01/22 12:38 Physical Exam Vitals: Vital Signs Temp Pulse Resp BP Pulse Ox 10/02/22 16:33 97.9 F 78 18 125/73 98 10/02/22 07:23 63 18 151/81 96 10/02/22 05:00 97.5 F L 68 16 154/83 97 10/02/22 00:00 72 18 132/84 99 10/01/22 19:15 69 18 138/80 97 - Constitutional General appearance: average body habitus, no acute distress - EENT Eyes: no anicteric sclerae, no EOMI ENT: hearing grossly normal - Neck Neck: no lymphadenopathy - Respiratory Respiratory: bilateral: CTA - Cardiovascular Rhythm: regular Heart sounds: normal: S1, S2 Abnormal Heart Sounds: no systolic murmur, no diastolic murmur, no rub, no S3 Gallop, no S4 Gallop, no click, no other - Gastrointestinal General gastrointestinal: soft, no tenderness - Integumentary Integumentary: no cyanotic, no rash - Neurologic grossly intact - Musculoskeletal Musculoskeletal: strength equal bilaterally - Psychiatric Psychiatric: A&O x's 3, appropriate affect, intact judgment & insight Results CBC & Chem 7: 10/02/22 07:40 10/02/22 07:40 Labs: Abnormal Lab Results - Last 24 Hours (Table) 10/02/22 10/02/22 Range/Units 07:40 07:40 Neutrophils # 9.3 H (1.3-7.7) k/uL Lymphocytes # 0.6 L (1.0-4.8) k/uL Chloride 108 H (98-107) mmol/L BUN 18 H (7-17) mg/dL Glucose 129 H (74-99) mg/dL CT Scan - head: report reviewed Assessment and Plan (1) Breast cancer Current Visit: Yes Status: Acute Priority: High Code(s): C50.919 - MALIGNANT NEOPLASM OF UNSP SITE OF UNSPECIFIED FEMALE BREAST SNOMED Code(s): 600948736 Plan: Breast cancer: -History of stage IIIC triple negative breast cancer. She is a patient of Dr. Titus Hernandez. She is s/p 4 cycles of TC+pembrolizumab with clinical response in the left breast from 11/19-02/19. And s/p 4 cycles of AC plus keytruda, completed in 05/2022. Left mastectomy on 08/27/2022 noted residual microinvasive disease with negative margins and no positive lymph nodes or other high risk features. Plan is for adjuvant radiation therapy, with Dr. Vuong. However apt was missed due to hospitalization. Due to BRCA1 mutation, we discussed that adjuvant treatment would be with 1 year of adjuvant oral olaparib twice daily once RT is completed. -CT brain revealed heterogeneous mass with cystic components in the left occipital lobe measuring 2.7 x 2.4 x 1.7 cm with some surrounding vasogenic edema. Discussed findings of CT with patient, and that brain mass is concerning for metastatic disease to the brain. -Patient has been started on IV Decadron 6mg q8hrs -Rad/onc consulted -MRI brain, CT CAP, and bone scan ordered for further evaluation of disease state/progression -Tumor markers ordered Patient updated on plan of care and is agreeable. attests: I have performed H&P and developed impression and plan of care for patient, discussed with dictator. I agree with dictated note, documented as a scribe
--- NOTE | 2022-10-02 19:37 | CT ---
EXAMINATION TYPE: CT ChestAbdPelvis w con CT DLP: 967.7 mGycm, Automated exposure control for dose reduction was used. DATE OF EXAM: 10/02/2022 7:27 PM COMPARISON: CT chest abdomen pelvis 11/01/2021 CLINICAL INDICATION:Female, 57 years old with history of hx breast cancer, r/o disease progression; P HH, obs for mets. hx of breast ca. Technique: Multiple axial images of the chest, abdomen, and pelvis were obtained following the intrav enous administration of 100 mL Isovue-300. Two-dimensional coronal and sagittal reconstructions were obtained. Findings: CHEST: LUNGS/ PLEURA: Previously seen right lower lobe pleural-based nodule is no longer visualized. No new or enlarging pulmonary nodules. Right apex pleural parenchymal scarring. Right upper lobe subpleural reticular opacities likely related to posttreatment changes (radiation). No pneumothorax or pleural e ffusion. No focal consolidation. AIRWAY: Patent and unremarkable. HEART: Size within normal limits. No pericardial effusion. MEDIASTINUM/HILUM: No pathologic adenopathy. VASCULATURE: No aortic aneurysm. Right chest wall IJ Mediport with distal tip terminating in the low SVC. MUSCULOSKELETAL: No acute osseous abnormalities. No aggressive osseous lesions. SOFT TISSUES/LYMPH NODES: Postsurgical changes from left mastectomy. An elongated seroma identified a long the left lateral breast measuring 3.1 x 0.6 cm. Additional seroma identified within the left axi lla measuring up to 2.2 cm right axillary lymph node dissection changes identified. Right breast mast ectomy with breast prosthesis identified. LOWER NECK: No significant findings. ABDOMEN: ABDOMEN LIVER: A few scattered subcentimeter hypoattenuating lesions within the liver which are too small to accurately characterize. Nasopharynx represent cysts. GALLBLADDER AND BILE DUCTS: Cholelithiasis without evidence of surrounding inflammatory changes. No b iliary duct dilatation. PANCREAS: Unremarkable. SPLEEN: Unremarkable. ADRENAL GLANDS: Unremarkable. KIDNEYS AND URETERS: No evidence of hydronephrosis or renal calculus. Kidneys enhance symmetrically. No suspicious lesion. PELVIS BLADDER: Under distended, limiting evaluation REPRODUCTIVE: Unremarkable. ABDOMEN & PELVIS STOMACH AND BOWEL: Stomach and duodenum are unremarkable. No focal wall thickening or surrounding inf lammatory changes. The appendix is within normal limits. No evidence of bowel obstruction. PERITONEUM: No evidence of pneumoperitoneum or free fluid. VASCULATURE: No evidence of aortic aneurysm. Pelvic phleboliths. MUSCULOSKELETAL: No acute osseous abnormalities. No suspicious osseous lesions. S-shaped scoliotic cu rvature of the visualized spine. LYMPH NODES: No gross evidence for lymphadenopathy. SOFT TISSUE/ABDOMINAL WALL: Few foci of gas within the anterior, wall likely related to medication in jection. IMPRESSION: * Postsurgical changes from left mastectomy with a thin elongated seroma within the left lateral geraldo ast and additional seroma measuring up to 2.2 cm within the left axilla. No CT evidence for disease p rogression within the chest. * No evidence for metastatic disease within the abdomen or pelvis. * Cholelithiasis.
[2022-10-03] MEDS: DEXAMETHASONE SOD PHOSPHATE 10 MG/ML 1 ML VIAL IVP SCH ×3 (03:51→17:52)
[2022-10-03] MEDS: LEVOTHYROXINE 100 MCG TAB PO SCH (05:57)
[2022-10-03] MEDS: HEPARIN SODIUM,PORCINE/PF 5,000 UNIT/0.5 ML SYRINGE SQ SCH ×2 (08:33→22:14)
[2022-10-03] MEDS: LORATADINE 10 MG TAB PO SCH (08:33)
[2022-10-03] MEDS: PANTOPRAZOLE 40 MG/10 ML VIAL IVP SCH (08:33)
[2022-10-03] MEDS: FLUTICASONE 50MCG/SPRAY NASAL 16GM NASAL SCH (08:36)
[2022-10-03 09:23] LABS: Basophils # (A) 0.01 X 10*3/uL (0.00-0.10); Basophils % (A) 0.1 %; Eosinophils # (A) 0 X 10*3/uL (0.04-0.35); Eosinophils % (A) 0 %; HCT 38.8 % (37.2-46.3); HGB 12.5 d/dL (12.0-15.0); Lymphocytes # (A) 0.68 X 10*3/uL (0.90-5.00); Lymphocytes % (A) 5.8 %; MCH 29.5 pg (27.0-32.0); MCHC 32.2 d/dL (32.0-37.0); MCV 91.5 FL (80.0-97.0); Monocytes # (A) 0.26 X 10*3/uL (0.20-1.00); Monocytes % (A) 2.2 %; NRBC Per 100 WBC 0 X 10*3/uL (0.00-0.01); Neutrophils # (A) 10.74 X 10*3/uL (1.80-7.70); Neutrophils % (A) 91.1 %; Platelet Count 194 X 10*3/uL (140-440); RBC 4.24 X 10*6/uL (4.10-5.20); RDW 12.2 % (11.5-14.5); WBC 11.79 X 10*3/uL (4.50-10.00)
--- NOTE | 2022-10-03 10:59 | MR ---
EXAMINATION TYPE: MR brain wo/w con DATE OF EXAM: 10/03/2022 10:19 AM CLINICAL INDICATION:Female, 57 years old with history of hx breast cancer, brain mass noted on CT hea d; Hx of breast cancer, Brain mass noted on CT head COMPARISON: CT 10/01/2022 TECHNIQUE: Multi planar, multi sequence imaging was performed through the brain including: T1, T2, In version recovery, susceptibility weighted imaging and gradient echo imaging and Diffusion weighted im aging. The patient was then given intravenous contrast and multi planar, T1 fat-saturation images wer e obtained. IV Contrast: 7.5 cc Gadavist FINDINGS: There is a high T2 centrally cystic brain mass without evidence for restricted diffusion within the l eft occipital/parietal region overall area measures 3.7 x 3.7 x 4.1 cm. There is surrounding vasogeni c edema within this lesion. A more solid appearing component is seen in the inferior portion which do es demonstrate blooming artifact suggesting hemorrhage. There is crowding of the basilar cisterns. Po stcontrast imaging doesn't demonstrate enhancement predominantly peripherally within this lesion. The re is crowding of the posterior horn of the left lateral ventricle secondary to vasogenic edema and m ass. No additional sites of metastatic disease or abnormal enhancement are visualized. The Intracrani al arterial flow voids are maintained. Midline structures show no abnormality. The bone marrow signal is within normal limits. No abnormal bone marrow lesions. Paranasal sinuses and mastoid air cells: No significant paranasal sinus disease. Visualized orbits: Orbital contents are intact. IMPRESSION: Left occipital parietal heterogenous mass which is primary cystic which is most compatible with neopl asm. There is early crowding of the basilar cisterns from the vasogenic edema predominantly in the le ft around the brainstem. No additional sites of metastatic disease are definitively visualized.
[2022-10-03 11:40] LABS: BUN/Creat Ratio 28.86 Ratio (12.00-20.00); Blood Urea Nitrogen 20.2 mg/dL (9.0-27.0); Calcium 9.7 mg/dL (8.7-10.3); Carbon Dioxide 24.7 mmol/L (21.6-31.8); Chloride 107 mmol/L (96-109); Glucose 125 mg/dL (70-110); Potassium 4.2 mmol/L (3.5-5.5); Sodium 144 mmol/L (135-145)
--- NOTE | 2022-10-03 14:14 | NM ---
EXAMINATION TYPE: NM bone scan whole body DATE OF EXAM: 10/03/2022 COMPARISON: 10/30/2021 CLINICAL INDICATION: Female, 57 years old with history of hx breast cancer, r/o disease progression; Delayed whole-body scanning was performed following the injection of 21 mCi Tc 99m MDP. Images acqui red 4 hours post injection. FINDINGS: Abnormal uptake involving the calvarium is stable. There is a scoliotic curvature of the spine. Renal uptake is symmetric. Abnormal uptake involving the knees, feet and shoulders is likely post arthritic. Abnormal uptake throughout the thoracic and lower lumbar most likely is degenerative. IMPRESSION: No diagnostic evidence of osseous metastases. There remains increased uptake within the calvarium. Th is is a nonspecific finding. Correlated with the MRI report to be performed 10/03/2022.
--- NOTE | 2022-10-03 18:02 | P.PN ---
Progress Note - Text Progress Note Date: 10/03/22 Attempted to see patient twice today, however she was off the unit. Spoke with the patient via telephone this afternoon. Discussed in detail findings of MRI brain and CT chest abdomen and pelvis. Discussed case with Dr. lauren who was in agreement since there was no additional sites of metastatic disease within the brain the patient would be a surgical candidate and would need neurosurgeon evaluation and would need to be transferred to tertiary center. Spoke with internal medicine who will begin working on transfer to [facility] or [facility]. Decadron also changed to 6 mg every 6 hours due to vasogenic edema around the left brain stem. Patient does report that she is feeling improved since admission and nausea vomiting has subsided. Pt was updated on above and is agreeable with plan
[2022-10-04] MEDS: DEXAMETHASONE SOD PHOSPHATE 10 MG/ML 1 ML VIAL IVP SCH ×2 (00:12→06:12)
[2022-10-04 01:06] VITALS: RESP 18
--- NOTE | 2022-10-04 06:09 | P.PN ---
Subjective Progress Note Date: 10/03/22 This is a very pleasant 57-year-old female who was recently admitted with headache associated with nausea and vomiting and is being closely monitored. Patient did have CT of the brain which showed a heterogenous mass with cystic components in the left occipital lobe that has some surrounding vasogenic edema, compatible with a metastatic lesion. Patient does have history of breast cancer and follows with oncology. Patient was started on IV dexamethasone and having significant improvement in headache. Radiation oncology was consulted and discussed with oncology that patient would benefit from neurosurgery services. Recommend transfer to tertiary [facility] center. Transfer was initiated to [facility] and accepted by Dr. Canales neurosurgery and currently awaiting a bed. Patient is agreeable to the transfer. Patient is afebrile denies chest pain or shortness of breath. Patient is tolerating diet with no reports of nausea or vomiting noted. Review of systems: Constitutional: No reports of fatigue, fever, or chills Cardiovascular: No reports of chest pain or palpitations Respiratory: No reports of shortness of breath or cough GI: No reports of nausea, no reports of vomiting, no diarrhea : No reports of dysuria or retention Neurovascular: No reports of generalized weakness, reports improvement in headache All medications have been reviewed PHYSICAL EXAMINATION: GENERAL: The patient is alert and oriented x4, Well developed, well nourished. Obese. HEENT: Pupils are round and equally reacting to light. EOMI. no scleral icterus. No conjunctival pallor. Normocephalic, atraumatic. No pharyngeal erythema. No thyromegaly. CARDIOVASCULAR: S1 and S2 muffled PULMONARY: diminished breath sounds bilaterally with no wheezing or rhonchi noted. ABDOMEN: soft. Nontender on exam. obese. non-distended, normoactive bowel sounds. No palpable organomegaly. MUSCULOSKELETAL: No joint swelling or deformity. EXTREMITIES: No cyanosis, clubbing, or pedal edema. NEUROLOGICAL: Gross neurological examination did not reveal any focal deficits. SKIN: No rashes. Assessment: Headache with vomiting possibly secondary to left occipital mass lesion with vasogenic edema, possibly metastasis History of bilateral breast cancer History of asthma, not an exacerbation GERD Degenerative joint disease GI prophylaxis DVT prophylaxis Full code Plan: Recommend to continue with current medications and management with oncology following. Radiation oncology consulted and discussed after MRI findings of left occipital parietal dryness mass that is most compatible with a neoplasm and some vasogenic edema that patient would benefit from tertiary treatment center and neurosurgery evaluation with possible intervention. Patient is agreeable to the transfer and has been initiated accepted at [facility] by Dr. Canales and currently awaiting a bed assignment. We'll follow with case management in the a.m. to acquire insurance authorization for transfer Will follow-up with repeat labs and continue to monitor closely Continue IV dexamethasone Possible discharge to [facility] once a bed is available next 24-48 hours. Prognosis guarded The impression and plan of care has been dictated by Aida Guerra, nurse practitioner as directed. Dr. Vicenta ALATORRE I have performed a history and examination and MDM of this patient, discussed the same with the dictator, and agree with the dictator's assessment and plan as written ,documented as a scribe. Based on total visit time, I have performed more than 50% of the visit. Any additional findings or plans will be noted. Objective - Vital Signs Vital signs: Vital Signs Temp 98.1 F 10/03/22 07:05 Pulse 69 10/03/22 07:05 Resp 17 10/03/22 07:05 BP 140/61 10/03/22 07:05 Pulse Ox 94 L 10/03/22 07:05 FiO2 Intake & Output 10/02/22 10/03/22 10/03/22 18:59 06:59 18:59 Intake Total 400 Balance 400 Intake: Oral 400 Other: Voiding Method Toilet # Voids 2 - Labs CBC & Chem 7: 10/03/22 06:07 10/03/22 06:07 Labs: Abnormal Lab Results - Last 24 Hours (Table) 10/03/22 Range/Units 06:07 WBC 11.79 H (4.50-10.00) X 10*3/uL Neutrophils # 10.74 H (1.80-7.70) X 10*3/uL Lymphocytes # 0.68 L (0.90-5.00) X 10*3/uL Eosinophils # 0 L (0.04-0.35) X 10*3/uL
[2022-10-04] MEDS: LEVOTHYROXINE 100 MCG TAB PO SCH (06:12)
[2022-10-04 07:30] VITALS: BP 152/95; PULSE 65; TEMP 97.4
[2022-10-04] MEDS: PANTOPRAZOLE 40 MG/10 ML VIAL IVP SCH (08:54)
[2022-10-04] MEDS: HEPARIN SODIUM,PORCINE/PF 5,000 UNIT/0.5 ML SYRINGE SQ SCH (08:54)
[2022-10-04] MEDS: LORATADINE 10 MG TAB PO SCH (08:54)
[2022-10-04] MEDS: FLUTICASONE 50MCG/SPRAY NASAL 16GM NASAL SCH (08:58)
--- NOTE | 2022-10-04 10:21 | P.DS ---
Providers Date of admission: 10/01/22 13:45 Expected date of discharge: 10/04/22 Attending physician: Karan Frank MD Consults: 10/01/22 13:44 Consult Physician Urgent Consulting Provider: Gus Hernandez Consult Reason/Comments: Metastatic brain tumor Do you want consulting provider notified?: Yes 10/02/22 12:16 Consult Physician Urgent Consulting Provider: Darrel Frye Consult Reason/Comments: brain lesion, metastatic Do you want consulting provider notified?: Yes Primary care physician: Sisi Liriano [facility] Course: Final diagnosis Headache with vomiting possibly secondary to left occipital mass lesion with vasogenic edema, possibly metastasis History of bilateral breast cancer History of asthma, not an exacerbation GERD Degenerative joint disease GI prophylaxis DVT prophylaxis Full code Discharge disposition Patient is being transferred in a stable condition with guarded prognosis to [facility]. Patient was accepted by Dr. Canales. Patient will follow-up with Dr. Liriano in the outpatient setting upon discharge. Patient is currently maintained on IV dexamethasone 6 mg every 6 hours. Total time taken is greater than 35 minutes. Hospital course This is a 57-year-old female who was recently admitted with headache and vomiting and noted to have a mass on the brain on CT and confirmed on MRI showing a left occipital parietal heterogenous mass which is primary cystic which is most compatible with neoplasm and there is an early crowding of basilar cisterns from the vasogenic edema predominantly in the left around the brainstem no additional sites of metastatic disease are visualized. The mass is measuring 3.7 x 3.7 x 4.1 cm. Patient is continued on IV dexamethasone every 6 hours and will continue. Oncology and radiology oncology discussed the MRI findings recommending transfer to tertiary treatment Center for neurosurgical evaluation. Transfer was initiated and [facility] accepted the patient and Dr. Canales received report accepting the patient for neurosurgical evaluation. Patient does have a bed available and will be transferred today. Patient is aware and agreeable with this transfer. Currently patient denies any further headache nausea or vomiting and tolerating diet. Currently no reports of chest pain, shortness of breath, or palpitations. Patient is afebrile. Patient will be transferred to [facility] via EMS today. Guarded prognosis. Physical exam: Gen: This is a 57-year-old female who is awake, alert and oriented 3, well- developed, well-nourished, obese HEENT: Head is atraumatic, normocephalic. Pupils equal, round. Sclerae is anicteric. NECK: Supple. No JVD. No lymphadenopathy. No thyromegaly. LUNGS: Clear to auscultation. No wheezes or rhonchi. No intercostal retr actions. HEART: Regular rate and rhythm. No murmur. ABDOMEN: Soft. Bowel sounds are present. No masses. No tenderness. EXTREMITIES: No pedal edema. No calf tenderness. NEUROLOGICAL: Patient is awake, alert and oriented x3. Cranial nerves 2 through 12 are grossly intact. No visual deficits noted. Please refer to medication reconciliation sheet for a list of medications. The impression and plan of care has been dictated by Aida Guerra, Nurse Practitioner as directed. Dr. Vicenta MD I have performed a history and examination and MDM of this patient, discussed the same with the dictator, and agree with the dictator's assessment and plan as written ,documented as a scribe. Based on total visit time, I have performed more than 50% of the visit. Patient Condition at Discharge: Fair Plan - Discharge Summary Discharge Rx Participant: No New Discharge Prescriptions: No Action Cetirizine HCl 10 mg PO DAILY Fluticasone Nasal [place] [Flonase Nasal [place]] 1 spray NASAL DAILY Albuterol Inhaler [Ventolin Hfa Inhaler] 1 - 2 puff PO RT-Q6H PRN PRN Reason: Shortness Of Breath Omeprazole 40 mg PO DAILY Albuterol Nebulized [Ventolin Nebulized] 2.5 mg INHALATION RT-Q4H PRN PRN Reason: Shortness Of Breath Levothyroxine Sodium [Synthroid] 100 mcg PO DAILY Discharge Medication List Cetirizine HCl 10 mg PO DAILY 10/11/21 [History] Albuterol Inhaler [Ventolin Hfa Inhaler] 1 - 2 puff PO RT-Q6H PRN 10/26/21 [History] Fluticasone Nasal [place] [Flonase Nasal [place]] 1 spray NASAL DAILY 10/26/21 [History] Omeprazole 40 mg PO DAILY 07/05/22 [History] Albuterol Nebulized [Ventolin Nebulized] 2.5 mg INHALATION RT-Q4H PRN 07/11/22 [History] Levothyroxine Sodium [Synthroid] 100 mcg PO DAILY 10/01/22 [History] Follow up Appointment(s)/Referral(s): Sisi Liriano MD [Primary Care Provider] - 1-2 days Activity/Diet/Wound Care/Special Instructions: Patient is going to [facility] and has been accepted by Dr. Canales for neurosurgical evaluation Discharge Disposition: OTHER INSTITUTION NOT DEFINED
--- NOTE | 2022-10-04 12:18 | P.CONS ---
History of Present Illness - Reason for Consult Consult date: 10/03/22 Requesting physician: Braulio Garcia - Chief Complaint "I was having headaches" - History of Present Illness Ms. 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 Following KEYNOTE-522, she underwent a modified radical mastectomy demonstrating ypT1mi and ypN0 disease. She now presents with a large, cystic, unifocal left occipital lobe mass. I met with this patient initially on 09/12/2022 and she was slated to undergo adjuvant chest wall and regional cam irradiation. She notes that just prior to admission she had new-onset, severe headaches. In retrospect, she had been having mild trouble with right peripheral vision as of late. CT head on 10/01/2022 demonstrated a heterogeneous mass in the left occipital lobe. CT chest/abdomen/pelvis demonstrated no progressive disease. MRI brain on 10/03/2022 demonstrated a solitary 4.1 cm focus of disease. Upon admission, she was started on Decadron 6 mg every 6 hours with GI prophylaxis. She notes that her headaches have completely resolved and she denies any neurological deficits. Review of Systems All systems: negative Past Medical History Past Medical History: Asthma, Cancer, GERD/Reflux, Osteoarthritis (OA) Additional Past Medical History / Comment(s): Fell Feb 2019, hurt back, still having issues. Allergies. Hx right breast cancer 1995. Heartburn. History of Any Multi-Drug Resistant Organisms: None Reported Past Surgical History: Breast Surgery, Section, Orthopedic Surgery Additional Past Surgical History / Comment(s): Section X2, right mastectomy with reconstructive surgery, Mediport placed and removed replaced. ankle Past Anesthesia/Blood Transfusion Reactions: No Reported Reaction Additional Past Anesthesia/Blood Transfusion Reaction / Comm: No BP or IV starts or Blood Work in right arm. Difficult IV start. Past Psychological History: No Psychological Hx Reported Smoking Status: Former smoker Past Alcohol Use History: Occasional Past Drug Use History: None Reported - Past Family History Mother Family Medical History: No Reported History Medications and Allergies Home Medications Medication Instructions Recorded Confirmed Type Cetirizine HCl 10 mg PO DAILY 10/11/21 10/01/22 History Albuterol Inhaler [Ventolin Hfa 1 - 2 puff PO RT-Q6H PRN 10/26/21 10/01/22 History Inhaler] Fluticasone Nasal [place] [Flonase 1 spray NASAL DAILY 10/26/21 10/01/22 History Nasal [place]] Omeprazole 40 mg PO DAILY 07/05/22 10/01/22 History Albuterol Nebulized [Ventolin 2.5 mg INHALATION RT-Q4H PRN 07/11/22 10/01/22 History Nebulized] Levothyroxine Sodium [Synthroid] 100 mcg PO DAILY 10/01/22 10/01/22 History Allergies Allergy/AdvReac Type Severity Reaction Status Date / Time doxycycline Allergy Vomiting Verified 10/01/22 12:38 Iodinated Contrast Media Allergy Rash/Hives Verified 10/01/22 12:38 Tape Allergy "Eats Skin" Uncoded 10/01/22 12:38 Physical Exam Vitals: Vital Signs Temp Pulse Pulse Resp BP Pulse Ox 10/04/22 07:30 97.4 F L 65 18 152/95 97 10/04/22 02:53 56 L 18 163/71 10/04/22 01:00 97.7 F 51 L 18 171/99 96 10/03/22 19:05 98.4 F 69 20 155/76 96 Intake and Output 10/03/22 10/04/22 10/04/22 22:59 06:59 14:59 Intake Total 450 Balance 450 Intake: Oral 450 Other: Voiding Method Toilet # Voids 3 1 # Bowel Movements 0 1 - Constitutional General appearance: no acute distress - EENT Eyes: normal appearance - Respiratory Respiratory: negative: prolonged expiration, prolonged inspiration - Neurologic no focal deficits Results CBC & Chem 7: 10/03/22 06:07 10/03/22 06:07 Assessment and Plan Assessment: Ms. 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 Following KEYNOTE-522, she underwent a modified radical mastectomy demonstrating ypT1mi and ypN0 disease. She now presents with a large, cystic, unifocal left occipital lobe mass. Plan: The patient has a large, unifocal left occipital mass suspicious for metastasis. She is neurologically stabilized. I recommend transfer to a tertiary center for neurosurgical evaluation. I discussed with medical oncology who was in agreement. If she does undergo surgery she will require adjuvant radiation therapy. The logistics of such will be determined at a later date. Delmar Vuong MD Radiation Oncology Time with Patient: Greater than 30
== END 2022-10-04 12:28 | disposition short-term general hospital (02) | DRG 54 ==
LOC: EC 10:43 → 5NMEDONC 13:45
PROVIDERS: ADMIT Internal Medicine; ATTEND Internal Medicine
DX: C79.31 Secondary malignant neoplasm of brain (principal); G93.6 Cerebral edema; C50.912 Malignant neoplasm of unspecified site of left female breast; M19.90 Unspecified osteoarthritis, unspecified site; Z90.13 Acquired absence of bilateral breasts and nipples; Z79.890 Hormone replacement therapy; R11.10 Vomiting, unspecified; J45.909 Unspecified asthma, uncomplicated; K21.9 Gastro-esophageal reflux disease without esophagitis; Z91.81 History of falling; Z85.3 Personal history of malignant neoplasm of breast; Z88.1 Allergy status to other antibiotic agents; Z91.041 Radiographic dye allergy status; Z91.048 Other nonmedicinal substance allergy status
CPT/HCPCS: 36415; 70470; 70553; 71260; 74177; 78306; 80048; 80053; 85025; 86300; 96361; 96372; 96374; 96375; 96376; 99291

== ENCOUNTER → 2022-11-16 | Outpatient (CLI) | payer BC ==
--- NOTE | 2022-11-16 16:13 | PE ---
EXAMINATION TYPE: PET CT fusion skull to thigh DATE OF EXAM: 11/16/2022 CLINICAL INDICATION:Female, 57 years old with history of C50.612; TECHNIQUE: Following the intravenous administration of 9.6 mCi of F-18 FDG, whole body images are p erformed from the skull base to the midthigh. Images are reviewed on the computer in the coronal, ax ial, and sagittal planes. Reconstructed rotating images are created on independent workstation and r eviewed on the computer. A non-contrast CT is performed in conjunction with the PET scan. Glucose l evel 101 mg/dL CT DLP: 479.33 mGycm, Automated exposure control for dose reduction was used. COMPARISON: CT 10/02/2022, PET/CT None, FINDINGS: Mediastinal SUV mean is 1.2. Hepatic parenchyma SUV mean is 1.7. SKULL BASE AND NECK: * Postsurgical decrease in metabolic activity of the brain. * Asymmetrically increased left pharyngeal uptake max 4.6 and on the right 3.4 * Left neck 9 mm lymph node max SUV 2.4. * Bilateral thyroid gland uptake max SUV on the left 4.2 and on the right 4.6. CHEST, MEDIASTINUM, AND HILAR REGION: No suspicious radiotracer activity. ABDOMEN AND PELVIS: No suspicious radiotracer activity. MUSCULOSKELETAL STRUCTURES: No suspicious radiotracer activity. OTHER CT: Postsurgical changes to the calvarium with craniotomy. Arthrosis course of the arterial vas culature. Right chest wall [id number] with tip superior vena cava. Right breast implant. Left evelin st surgically absent. There is cholelithiasis. Fat-containing umbilical hernia. Emphysema changes are seen throughout the lungs. IMPRESSION: Single left neck prominent lymph node with mild FDG activity. Given the asymmetric left pharyngeal up take consider direct visualization to rule out underlying malignancy versus infectious/inflammatory p rocess within the oropharynx.. No other evidence for metastatic disease. Finding could be reactive. A ttention surveillance CT neck imaging with IV contrast.
== END | disposition home or self-care (01) ==
LOC: RADPETMAIN 11:12
PROVIDERS: ATTEND Internal Medicine
DX: C50.612 Malignant neoplasm of axillary tail of left female breast (principal)
CPT/HCPCS: 78815; A9552

== ENCOUNTER → 2023-01-22 | Outpatient (CLI) | payer BC ==
[2023-01-22 11:45] VITALS: BP 160/118; PULSE 93; RESP 18; TEMP 98
--- NOTE | 2023-01-22 12:03 | P.PN ---
Subjective Progress Note Date: 01/22/23 stage IV invasive ductal cancer left breast 2021; right breast cancer 1995 Milagros is a 57 year old female with a history of BRCA 1 mutation and right breast cancer in 1995. She is status post trimodality therapy for [id number](-) left breast cancer in the [facility] [place]. She completed KEYNOTE 522 after which she underwent a modified radical mastectomy on 08-27-22. This revealed focal residual invasive ductal micromarcinoma with fibrotic treatment effect. Sic nodes were removed all (-) for cancer. She developed occioital mets, and is status post resection. Her history is significant for right breast cancer diagnosed in 1995 (age 30). genetic testing: BRCA 1 mutation, CHECK 2 mutation Radiation Oncology note 10-23-22 reviewed Medical Oncology Note 12-24-22 reviewed; she is on olaparib Family history: maternal grandmother colon Colon cancer, bladder cancer, questionable uterine cancer Hormonal history: menarche: 13 , age at first : 18, breast fed: no menopause: in her 40's Review of systems: Constitutional: Negative HEENT: Vision changes, she did have an occipital lobe tumor which was resected and has had radiation for that as well Lungs: No shortness of breath Heart: Negative GI: Negative Musculoskeletal: Negative Objective - Vital Signs Vital signs: Vital Signs Temp 98.0 F 01/22/23 11:36 Pulse 93 01/22/23 11:36 Resp 18 01/22/23 11:36 BP 160/118 01/22/23 11:36 Pulse Ox 97 01/22/23 11:36 FiO2 Intake & Output 01/21/23 01/22/23 01/22/23 18:59 06:59 18:59 Weight 81.647 kg - Constitutional General appearance: Present: cooperative - EENT Eyes: Present: EOMI ENT: Present: hearing grossly normal - Neck Neck: Present: normal ROM - Respiratory Respiratory: bilateral: CTA - Cardiovascular Rhythm: regular Heart sounds: normal: S1, S2 - Integumentary Integumentary: Present: normal turgor - Musculoskeletal Musculoskeletal: Present: gait normal - Psychiatric Psychiatric: Present: A&O x's 3, appropriate affect, intact judgment & insight - Additional findings Additional findings: Breast exam: Reconstructed right breast/no evidence of recurrence left chest wall Right chest wall: Reconstructed breasts no evidence of recurrent cancer Right axilla: No adenopathy of concern Left chest wall: Incision clean and dry well-healed Left axilla: No adenopathy of concern Assessment and Plan Assessment: Impression: [place] [id number] questionable left neck lymph node with no other evidence of systemic disease, its unclear if this represents metastatic disease or is reactive in nature Patient has been started on Olaparib metastatic breast cancer Plan: At this time no radiation is being given for the left chest wall as the lesion was already noted to be metastatic to the brain The patient did receive gamma knife surgery to her brain after she underwent surgical resection of this upper lobe Patient at this time is receiving Olaparib from medical oncology The patient will need PET/CT and brain MRIs every 3-4 months while on treatment follow up in 4 months Cc: Dr. Liriano, Dr. Hernandez
== END ==
LOC: WWCWWP 10:32
PROVIDERS: ATTEND Surgery
DX: C50.911 Malignant neoplasm of unspecified site of right female breast (principal); C50.912 Malignant neoplasm of unspecified site of left female breast; Z85.3 Personal history of malignant neoplasm of breast; Z15.01 Genetic susceptibility to malignant neoplasm of breast; Z88.1 Allergy status to other antibiotic agents; Z91.041 Radiographic dye allergy status; Z91.048 Other nonmedicinal substance allergy status

== ENCOUNTER → 2023-02-24 | Outpatient (CLI) | payer BC ==
[2023-02-24 16:54] LABS: NT-Pro-B-Type Natriuretic Pept 66 pg/mL
[2023-02-25 02:57] LABS: ALT 14 U/L (8-44); AST 22 U/L (13-35); Albumin 4.3 g/dL (3.8-4.9); Albumin/Globulin Ratio 1.95 Ratio (1.60-3.17); Alkaline Phosphatase 137 U/L (41-126); BUN/Creat Ratio 14.33 Ratio (12.00-20.00); Blood Urea Nitrogen 12.9 mg/dL (9.0-27.0); Calcium 9.6 mg/dL (8.7-10.3); Carbon Dioxide 24.1 mmol/L (21.6-31.8); Chloride 103 mmol/L (96-109); Globulin 2.2 g/dL (1.6-3.3); Glucose 108 mg/dL (70-110); Potassium 3.8 mmol/L (3.5-5.5); Sodium 142 mmol/L (135-145); T4, Free (Free Thyroxine) 1.72 ng/dL (0.80-1.80); Total Bilirubin 0.5 mg/dL (0.3-1.2); Total Protein 6.5 g/dL (6.2-8.2)
== END | disposition home or self-care (01) ==
LOC: LABWHC1 15:20
PROVIDERS: ATTEND Family Medicine
DX: E03.9 Hypothyroidism, unspecified (principal); R60.9 Edema, unspecified
CPT/HCPCS: 36415; 80053; 82607; 83880; 84439; 84443; 84480

== ENCOUNTER → 2023-03-13 | Outpatient (CLI) | payer BC ==
--- NOTE | 2023-03-17 23:11 | PE ---
EXAMINATION TYPE: PET CT fusion skull to thigh DATE OF EXAM: 03/13/2023 COMPARISON: 10/02/2022 CT Prior PET/CT: 11/16/2022 HISTORY: Breast cancer TECHNIQUE: Following the intravenous administration of 10.8 mCi of F-18 FDG, whole body images are p erformed from the skull base to the midthigh. Images are reviewed on the computer in the coronal, ax ial, and sagittal planes. Reconstructed rotating images are created on independent workstation and r eviewed on the computer. A localization and attenuation correction CT is performed in conjunction w ith the PET scan. DLP: 513.49 mGycm SCAN: Subsequent Blood glucose: 102 mg/dL Average Mediastinum SUV: 2.33 Average Liver SUV: 2.3 FINDINGS: NECK: At the skull base there is diminished radiotracer along the posterior left occipital region at the craniotomy site. At the skin surface there is a focus of radiotracer along the right upper extremity, image 37. This c ould be contamination. Tiny subcutaneous lesion could be considered. THORAX: No abnormal uptake ABDOMEN: No abnormal uptake PELVIS: No abnormal uptake OSSEOUS STRUCTURES: No abnormal uptake LOCALIZATION CT: There is a breast implant on the right. Cholelithiasis is present COMPARISON: Prior uptake within the left neck is not evident on the current examination. Suspicious u ptake within the neck is not identified. IMPRESSION: 1. Suspicious uptake to suggest metastasis is not identified. 2. Solitary uptake within the subcutaneous tissues of the right upper extremity most likely is contam ination. A small cutaneous metastasis could be considered.
== END | disposition home or self-care (01) ==
LOC: RADPETMAIN 08:48
PROVIDERS: ATTEND Internal Medicine
DX: C50.612 Malignant neoplasm of axillary tail of left female breast (principal)
CPT/HCPCS: 78815; A9552

== ENCOUNTER → 2023-05-23 | Outpatient (CLI) | payer BC ==
--- NOTE | 2023-05-25 11:01 | PE ---
EXAMINATION TYPE: PET CT fusion skull to thigh DATE OF EXAM: 05/23/2023 CLINICAL INDICATION:Female, 58 years old with history of C50.612 Breast ca; TECHNIQUE: Following the intravenous administration of 925 mCi of F-18 FDG, whole body images are p erformed from the skull base to the midthigh. Images are reviewed on the computer in the coronal, ax ial, and sagittal planes. Reconstructed rotating images are created on independent workstation and r eviewed on the computer. A non-contrast CT is performed in conjunction with the PET scan. Glucose l evel 116 mg/dL CT DLP: 464 mGycm, Automated exposure control for dose reduction was used. COMPARISON: CT None, PET/CT 03/13/2024, FINDINGS: Mediastinal SUV mean is 2.3. Hepatic parenchyma SUV mean is 2.9. SKULL BASE AND NECK: No suspicious radiotracer activity. Suspected prior left occipital lobe injury. CHEST, MEDIASTINUM, AND HILAR REGION: No suspicious radiotracer activity. ABDOMEN AND PELVIS: No suspicious radiotracer activity. MUSCULOSKELETAL STRUCTURES: No suspicious radiotracer activity. OTHER CT: Postsurgical changes to the calvarium with craniotomy. Arthrosis course of the arterial vas culature. Right chest wall [id number] with tip superior vena cava. Right breast implant. Left evelin st surgically absent. There is cholelithiasis. Fat-containing umbilical hernia. Emphysema changes are seen throughout the lungs. IMPRESSION: No suspicious radiotracer activity.
== END | disposition home or self-care (01) ==
LOC: RADPETMAIN 13:33
PROVIDERS: ATTEND Internal Medicine
DX: C50.612 Malignant neoplasm of axillary tail of left female breast (principal)
CPT/HCPCS: 78815; A9552

== ENCOUNTER 2023-10-29 13:56 | Observation (INO) | payer BC ==
--- NOTE | 2023-10-29 14:24 | ED ---
General Adult HPI - General Chief complaint: Altered Mental Status Stated complaint: Confusion Time Seen by Provider: 10/29/23 14:06 Source: patient, family, RN notes reviewed Mode of arrival: ambulatory Limitations: no limitations - History of Present Illness Initial comments: Patient is a 58-year-old female presenting to the emergency department for c onfusion. Onset of symptoms was around an hour ago. Symptoms do still continue some. Patient states he did have a headache rated 6/10. Patient does have a history of similar headaches previously. Headache was not severe. Patient took Tylenol and headache has improved to 2/10. Patient is having difficulty remembering names and feels confused. No extremity weakness. Patient does have history of metastatic breast cancer with brain lesion. Patient is on chemotherapy. Patient did have previous surgical resection of brain tumor followed by radiation. - Related Data Home Medications Medication Instructions Recorded Confirmed Cetirizine HCl 10 mg PO DAILY 10/11/21 10/29/23 Olaparib [Lynparza] 300 mg PO BID 01/22/23 10/29/23 Acetaminophen Tab [Tylenol Tab] 500 mg PO Q6H PRN 10/29/23 10/29/23 Cyanocobalamin [Vitamin B-12] 500 mcg PO DAILY 10/29/23 10/29/23 Levothyroxine Sodium [Synthroid] 112 mcg PO DAILY 10/29/23 10/29/23 Memantine [Namenda] 10 mg PO BID 10/29/23 10/29/23 Omeprazole Magnesium [PriLOSEC OTC] 20 mg PO DAILY 10/29/23 10/29/23 Allergies Allergy/AdvReac Type Severity Reaction Status Date / Time doxycycline Allergy Vomiting Verified 10/29/23 15:15 Iodinated Contrast Media Allergy Rash/Hives Verified 10/29/23 15:15 Tape Allergy "Eats Skin" Uncoded 01/22/23 11:32 Review of Systems ROS Statement: Those systems with pertinent positive or pertinent negative responses have been documented in the HPI. ROS Other: All systems not noted in ROS Statement are negative. Constitutional: Denies: fever Eyes: Denies: eye pain ENT: Denies: ear pain Respiratory: Denies: cough Cardiovascular: Denies: chest pain Endocrine: Denies: fatigue Neurological: Reports: as per HPI, confusion. Denies: weakness, numbness, paresthesias, abnormal gait Past Medical History Past Medical History: Asthma, Cancer, GERD/Reflux, Osteoarthritis (OA) Additional Past Medical History / Comment(s): Fell Feb 2019, hurt back, still having issues. Allergies. Hx right breast cancer 1995. Heartburn. History of Any Multi-Drug Resistant Organisms: None Reported Past Surgical History: Breast Surgery, Section, Orthopedic Surgery Additional Past Surgical History / Comment(s): Section X2, right mastectomy with reconstructive surgery, Mediport placed and removed replaced. ankle Past Anesthesia/Blood Transfusion Reactions: No Reported Reaction Additional Past Anesthesia/Blood Transfusion Reaction / Comment(s): No BP or IV starts or Blood Work in right arm. Difficult IV start. Past Psychological History: No Psychological Hx Reported Smoking Status: Former smoker Past Alcohol Use History: Occasional Past Drug Use History: None Reported - Past Family History Mother Family Medical History: No Reported History General Exam Limitations: no limitations General appearance: alert, in no apparent distress Head exam: Present: normocephalic Eye exam: Present: normal appearance, PERRL, EOMI. Absent: nystagmus ENT exam: Present: normal oropharynx Neck exam: Present: normal inspection Respiratory exam: Present: normal lung sounds bilaterally Cardiovascular Exam: Present: regular rate, normal rhythm GI/Abdominal exam: Present: soft. Absent: tenderness Extremities exam: Present: normal inspection Neurological exam: Present: alert, CN II-XII intact. Absent: motor sensory deficit Expanded Neurological exam: Present: protecting the airway Patient oriented to: Present: person, place. Absent: time Speech: Present: fluid speech Cranial nerves: EOM's Intact: Normal, Facial Sensation: Normal Sensory exam: Upper Extremity Light Touch: Normal, Lower Extremity Light Touch: Normal Motor strength exam: RUE: 5, LUE: 5, RLE: 5, LLE: 5 Eye Response: (4) open spontaneously Motor Response: (6) obeys commands Verbal Response: (4) confused conversation Psychiatric exam: Present: normal affect, normal mood Skin exam: Present: normal color Course Vital Signs 10/29/23 10/29/23 10/29/23 13:58 15:25 16:25 Temperature 98.1 F Pulse Rate 87 66 66 Respiratory 16 17 17 Rate Blood Pressure 137/71 112/66 120/60 O2 Sat by Pulse 99 98 98 Oximetry EKG Findings - EKG Results: EKG: interpreted by ERMD, sinus rhythm, normal axis, normal QRS, normal ST/T Medical Decision Making - Medical Decision Making Was pt. sent in by a medical professional or institution (KARLIE Davila, [employer], urgent care, hospital, or alf...) When possible be specific @ -No Did you speak to anyone other than the patient for history (EMS, parent, family, police, friend...)? What history was obtained from this source @ -Family is present helps provide history the patient does not recall Did you review nursing and triage notes (agree or disagree)? Why? @ -I reviewed and agree with nursing and triage notes Were old charts reviewed (outside hosp., previous admission, EMS record, old EKG, old radiological studies, urgent care reports/EKG's, alf records)? Report findings @ -No old charts were reviewed Differential Diagnosis (chest pain, altered mental status, abdominal pain women, abdominal pain men, vaginal bleeding, weakness, fever, dyspnea, syncope, heada felicitas, dizziness, GI bleed, back pain, seizure, CVA, palpatations, mental health, musculoskeletal)? @ -Differential Altered Mental Status: Hypoglycemia, DKA, hypercapnia, ETOH, overdose, CO poisoning, trauma, myxedema coma, HTN encephalopathy, infection, encephalitis, psychosis, intercranial hemorrhage, hepatic encephalopathy, meningitis, CVA, this is not meant to be an all-inclusive list EKG interpreted by me (3pts min.). @ -As above X-rays interpreted by me (1pt min.). @ -Chest x-ray shows no acute process CT interpreted by me (1pt min.). @ -CT brain shows postoperative change U/S interpreted by me (1pt. min.). @ -None done What testing was considered but not performed or refused? (CT, X-rays, U/S, labs)? Why? @ -MRI considered What meds were considered but not given or refused? Why? @ -None Did you discuss the management of the patient with other professionals (professionals i.e. KARLIE Davila, [employer], lab, RT, psych nurse, case management social worker, watch crystal molder, teacher, tank officer, immigration case worker)? Give summary @ -Discussed with Dr. Muñoz who will admit covering Dr. Corrales Was smoking cessation discussed for >3mins.? @ -No Was critical care preformed (if so, how long)? @ -No Were there social determinants of health that impacted care today? How? (Homelessness, low income, unemployed, alcoholism, drug addiction, transportation, low edu. Level, literacy, decrease access to med. care, alf, rehab)? @ -No Was there de-escalation of care discussed even if they declined (Discuss DNR or withdrawal of care, Hospice)? DNR status @ -No What co-morbidities impacted this encounter? (DM, HTN, Smoking, COPD, CAD, Cancer, CVA, ARF, Chemo, Hep., AIDS, mental health diagnosis, sleep apnea, morbid obesity)? @ -Treated metastatic breast cancer with brain metastasis Was patient admitted / discharged? Hospital course, mention meds given and route, prescriptions, significant lab abnormalities, going to OR and other pertinent info. @ -Patient presents with altered mental status and forgetfulness. Patient does have history of metastatic cancer to the brain. CT scan unremarkable. Patient will be admitted with consult for neurology and MRI. Admission orders written. Undiagnosed new problem with uncertain prognosis? @ -No Drug Therapy requiring intensive monitoring for toxicity (Heparin, Nitro, Insulin, Cardizem)? @ -No Were any procedures done? @ -No Diagnosis/symptom? @ -Altered mental status Acute, or Chronic, or Acute on Chronic? @ -Acute Uncomplicated (without systemic symptoms) or Complicated (systemic symptoms)? @ -Complicated with history of metastatic breast cancer to the brain Side effects of treatment? @ -No Exacerbation, Progression, or Severe Exacerbation? @ -No Poses a threat to life or bodily function? How? (Chest pain, [place], [place], pneumonia, PE, COPD, DKA, ARF, appy, cholecystitis, CVA, Diverticulitis, Homicidal, Suicidal, threat to staff... and all critical care pts) @ -To cardiac function - Lab Data Result diagrams: 10/29/23 14:29 10/29/23 14:29 Lab Results 10/29/23 10/29/23 10/29/23 Range/Units 14:29 14:29 14: WBC 4.6 (3.8-10.6) k/uL RBC 3.06 L (3.80-5.40) m/uL Hgb 11.8 (11.4-16.0) gm/dL Hct 33.9 L (34.0-46.0) % MCV 110.8 H (80.0-100.0) fL MCH 38.7 H (25.0-35.0) pg MCHC 34.9 (31.0-37.0) g/dL RDW 16.7 H (11.5-15.5) % Plt Count 144 L (150-450) k/uL MPV 8.1 Neutrophils % 87 % Lymphocytes % 7 % Monocytes % 4 % Eosinophils % 1 % Basophils % 0 % Neutrophils # 4.0 (1.3-7.7) k/uL Lymphocytes # 0.3 L (1.0-4.8) k/uL Monocytes # 0.2 (0-1.0) k/uL Eosinophils # 0.1 (0-0.7) k/uL Basophils # 0.0 (0-0.2) k/uL Manual Slide Review Performed Poikilocytosis Slight Anisocytosis Slight Macrocytosis Marked A PT 10.4 (10.0-12.5) sec INR 0.9 (<1.2) APTT 23.7 (22.0-30.0) sec Sodium (137-145) mmol/L Potassium (3.5-5.1) mmol/L Chloride (98-107) mmol/L Carbon Dioxide (22-30) mmol/L Anion Gap mmol/L BUN (7-17) mg/dL Creatinine (0.52-1.04) mg/dL Est GFR (CKD-EPI)AfAm (>60 ml/min/1.73 sqM) Est GFR (CKD-EPI)NonAf (>60 ml/min/1.73 sqM) Glucose (74-99) mg/dL POC Glucose (mg/dL) (70-110) mg/dL POC Glu Community Manager ID Calcium (8.4-10.2) mg/dL Total Bilirubin (0.2-1.3) mg/dL AST (14-36) U/L ALT (4-34) U/L Alkaline Phosphatase (38-126) U/L Troponin I (0.000-0.034) ng/mL Total Protein (6.3-8.2) g/dL Albumin (3.5-5.0) g/dL Urine Color Urine Appearance (Clear) Urine pH (5.0-8.0) Ur Specific Lincoln (1.001-1.035) Urine Protein (Negative) Urine Glucose (UA) (Negative) Urine Ketones (Negative) Urine Blood (Negative) Urine Nitrite (Negative) Urine Bilirubin (Negative) Urine Urobilinogen (<2.0) mg/dL Ur Leukocyte Esterase (Negative) Urine RBC (0-5) /hpf Urine WBC (0-5) /hpf Ur Squamous Epith Cells (0-4) /hpf Hyaline Casts (0-2) /lpf Urine Mucus (None) /hpf Urine Opiates Screen Not Detected (NotDetected) Ur Oxycodone Screen Not Detected (NotDetected) Urine Methadone Screen Not Detected (NotDetected) Ur Barbiturates Screen Not Detected (NotDetected) U Tricyclic Antidepress Not Detected (NotDetected) Ur Phencyclidine Scrn Not Detected (NotDetected) Ur Amphetamines Screen Not Detected (NotDetected) U Methamphetamines Scrn Not Detected (NotDetected) U Benzodiazepines Scrn Not Detected (NotDetected) Urine Cocaine Screen Not Detected (NotDetected) U Marijuana (THC) Screen Not Detected (NotDetected) 10/29/23 10/29/23 10/29/23 Range/Units 14:29 14:29 14:29 WBC (3.8-10.6) k/uL RBC (3.80-5.40) m/uL Hgb (11.4-16.0) gm/dL Hct (34.0-46.0) % MCV (80.0-100.0) fL MCH (25.0-35.0) pg MCHC (31.0-37.0) g/dL RDW (11.5-15.5) % Plt Count (150-450) k/uL MPV Neutrophils % % Lymphocytes % % Monocytes % % Eosinophils % % Basophils % % Neutrophils # (1.3-7.7) k/uL Lymphocytes # (1.0-4.8) k/uL Monocytes # (0-1.0) k/uL Eosinophils # (0-0.7) k/uL Basophils # (0-0.2) k/uL Manual Slide Review Poikilocytosis Anisocytosis Macrocytosis PT (10.0-12.5) sec INR (<1.2) APTT (22.0-30.0) sec Sodium 140 (137-145) mmol/L Potassium 3.8 (3.5-5.1) mmol/L Chloride 109 H (98-107) mmol/L Carbon Dioxide 23 (22-30) mmol/L Anion Gap 8 mmol/L BUN 16 (7-17) mg/dL Creatinine 0.76 (0.52-1.04) mg/dL Est GFR (CKD-EPI)AfAm >90 (>60 ml/min/1.73 sqM) Est GFR (CKD-EPI)NonAf 88 (>60 ml/min/1.73 sqM) Glucose 127 H (74-99) mg/dL POC Glucose (mg/dL) (70-110) mg/dL POC Glu Community Manager ID Calcium 9.3 (8.4-10.2) mg/dL Total Bilirubin 1.0 (0.2-1.3) mg/dL AST 28 (14-36) U/L ALT 12 (4-34) U/L Alkaline Phosphatase 137 H (38-126) U/L Troponin I <0.012 (0.000-0.034) ng/mL Total Protein 5.9 L (6.3-8.2) g/dL Albumin 4.2 (3.5-5.0) g/dL Urine Color Colorless Urine Appearance Clear (Clear) Urine pH 6.5 (5.0-8.0) Ur Specific Lincoln 1.035 (1.001-1.035) Urine Protein Negative (Negative) Urine Glucose (UA) Negative (Negative) Urine Ketones Negative (Negative) Urine Blood Small H (Negative) Urine Nitrite Negative (Negative) Urine Bilirubin Negative (Negative) Urine Urobilinogen <2.0 (<2.0) mg/dL Ur Leukocyte Esterase Negative (Negative) Urine RBC 1 (0-5) /hpf Urine WBC 3 (0-5) /hpf Ur Squamous Epith Cells 1 (0-4) /hpf Hyaline Casts 1 (0-2) /lpf Urine Mucus Rare H (None) /hpf Urine Opiates Screen (NotDetected) Ur Oxycodone Screen (NotDetected) Urine Methadone Screen (NotDetected) Ur Barbiturates Screen (NotDetected) U Tricyclic Antidepress (NotDetected) Ur Phencyclidine Scrn (NotDetected) Ur Amphetamines Screen (NotDetected) U Methamphetamines Scrn (NotDetected) U Benzodiazepines Scrn (NotDetected) Urine Cocaine Screen (NotDetected) U Marijuana (THC) Screen (NotDetected) 10/29/23 Range/Units 14:41 WBC (3.8-10.6) k/uL RBC (3.80-5.40) m/uL Hgb (11.4-16.0) gm/dL Hct (34.0-46.0) % MCV (80.0-100.0) fL MCH (25.0-35.0) pg MCHC (31.0-37.0) g/dL RDW (11.5-15.5) % Plt Count (150-450) k/uL MPV Neutrophils % % Lymphocytes % % Monocytes % % Eosinophils % % Basophils % % Neutrophils # (1.3-7.7) k/uL Lymphocytes # (1.0-4.8) k/uL Monocytes # (0-1.0) k/uL Eosinophils # (0-0.7) k/uL Basophils # (0-0.2) k/uL Manual Slide Review Poikilocytosis Anisocytosis Macrocytosis PT (10.0-12.5) sec INR (<1.2) APTT (22.0-30.0) sec Sodium (137-145) mmol/L Potassium (3.5-5.1) mmol/L Chloride (98-107) mmol/L Carbon Dioxide (22-30) mmol/L Anion Gap mmol/L BUN (7-17) mg/dL Creatinine (0.52-1.04) mg/dL Est GFR (CKD-EPI)AfAm (>60 ml/min/1.73 sqM) Est GFR (CKD-EPI)NonAf (>60 ml/min/1.73 sqM) Glucose (74-99) mg/dL POC Glucose (mg/dL) 133 H (70-110) mg/dL POC Glu Community Manager ID Niki Bradley Calcium (8.4-10.2) mg/dL Total Bilirubin (0.2-1.3) mg/dL AST (14-36) U/L ALT (4-34) U/L Alkaline Phosphatase (38-126) U/L Troponin I (0.000-0.034) ng/mL Total Protein (6.3-8.2) g/dL Albumin (3.5-5.0) g/dL Urine Color Urine Appearance (Clear) Urine pH (5.0-8.0) Ur Specific [place] (1.001-1.035) Urine Protein (Negative) Urine Glucose (UA) (Negative) Urine Ketones (Negative) Urine Blood (Negative) Urine Nitrite (Negative) Urine Bilirubin (Negative) Urine Urobilinogen (<2.0) mg/dL Ur Leukocyte Esterase (Negative) Urine RBC (0-5) /hpf Urine WBC (0-5) /hpf Ur Squamous Epith Cells (0-4) /hpf Hyaline Casts (0-2) /lpf Urine Mucus (None) /hpf Urine Opiates Screen (NotDetected) Ur Oxycodone Screen (NotDetected) Urine Methadone Screen (NotDetected) Ur Barbiturates Screen (NotDetected) U Tricyclic Antidepress (NotDetected) Ur Phencyclidine Scrn (NotDetected) Ur Amphetamines Screen (NotDetected) U Methamphetamines Scrn (NotDetected) U Benzodiazepines Scrn (NotDetected) Urine Cocaine Screen (NotDetected) U Marijuana (THC) Screen (NotDetected) Disposition Clinical Impression: Altered mental status Disposition: ADMITTED IP TO THIS HOSP Is patient prescribed a controlled substance at d/c from ED?: No Referrals: Sisi Liriano MD [Primary Care Provider] - 1-2 days Time of Disposition: 17:21
[2023-10-29 14:45] LABS: Glucose,Whole Blood 133 mg/dL (70-110)
[2023-10-29 14:53] LABS: Anisocytosis Slight; Basophils % (A) 0 %; Eosinophils # (A) 0.1 k/uL (0-0.7); Eosinophils % (A) 1 %; HCT 33.9 % (34.0-46.0); HGB 11.8 gm/dL (11.4-16.0); Lymphocytes # (A) 0.3 k/uL (1.0-4.8); Lymphocytes % (A) 7 %; MCH 38.7 pg (25.0-35.0); MCHC 34.9 g/dL (31.0-37.0); MCV 110.8 fL (80.0-100.0); Macrocytosis Marked; Mean Platelet Volume 8.1; Monocytes # (A) 0.2 k/uL (0-1.0); Monocytes % (A) 4 %; Neutrophils % (A) 87 %; Platelet Count 144 k/uL (150-450); Poikilocytosis Slight; RBC 3.06 m/uL (3.80-5.40); RDW 16.7 % (11.5-15.5); WBC 4.6 k/uL (3.8-10.6)
[2023-10-29 15:05] LABS: INR 0.9 (<1.2); Partial Thromboplastin Time 23.7 sec (22.0-30.0); Prothrombin Time 10.4 sec (10.0-12.5)
[2023-10-29] MEDS: SODIUM CHLORIDE 0.9% 1,000 ML IV ONE (15:12)
[2023-10-29 15:14] LABS: ALT 12 U/L (4-34); AST 28 U/L (14-36); African American GFR (CKD) >90 (>60 ml/min/1.73 sqM); Albumin 4.2 g/dL (3.5-5.0); Alkaline Phosphatase 137 U/L (38-126); Anion Gap 8 mmol/L; Blood Urea Nitrogen 16 mg/dL (7-17); Calcium 9.3 mg/dL (8.4-10.2); Carbon Dioxide 23 mmol/L (22-30); Chloride 109 mmol/L (98-107); Glucose 127 mg/dL (74-99); Non-African American GFR(CKD) 88 (>60 ml/min/1.73 sqM); Potassium 3.8 mmol/L (3.5-5.1); Sodium 140 mmol/L (137-145); Total Protein 5.9 g/dL (6.3-8.2)
[2023-10-29] MEDS: diphenhydrAMINE 50 MG/ML 1 ML VIAL IVP STA (15:15)
[2023-10-29] MEDS: methylPREDNISolone SOD SUCCI 125 MG/2 ML VIAL IV STA (15:16)
[2023-10-29] MEDS: FAMOTIDINE 20 MG/2 ML VIAL IV STA (15:18)
--- NOTE | 2023-10-29 15:44 | XR ---
EXAMINATION TYPE: XR chest 2V DATE OF EXAM: 10/29/2023 3:05 PM CLINICAL INDICATION:Female, 58 years old with history of altered mental status; [facility] COMPARISON: Chest radiographs from 08/14/2019 TECHNIQUE: XR chest 2V Frontal view of the chest. FINDINGS: Lungs/Pleura: There is no evidence of pleural effusion, focal consolidation, or pneumothorax. Pulmonary vascularity: Unremarkable. Heart/mediastinum: Cardiomediastinal silhouette is unremarkable. Musculoskeletal: No acute osseous pathology. Other findings: Breast implant projects over the right chest. Surgical clips in the right axilla. Lines/Tubes: [id number] projecting over the right hemithorax with distal tip at the cavoatrial junction. IMPRESSION: No acute cardiopulmonary disease/process.
--- NOTE | 2023-10-29 16:03 | CT ---
EXAMINATION TYPE: CT brain wo/w con DATE OF EXAM: 10/29/2023 COMPARISON: Correlation PET/CT 08/18/[address] brain 10/01/2022 HISTORY: 58-year-old female confusion. Personal history of breast cancer. TECHNIQUE: Examination CT of the head before and after administration of 100 Isovue-300 IV contrast. Coronal and sagittal reconstructions performed. CT DLP: 2228.4 mGycm Automated exposure control for dose reduction was used. FINDINGS: Previous left posterior parietal craniotomy flap. There is underlying encephalomalacia left occipital lobe that has a chronic appearance. No abnormal enhancement is seen here. There is no evidence of acute intracranial hemorrhage, acute ischemic changes, mass, mass-effect, or extra-axial fluid collection. There is no effacement of cerebral sulci or basal subarachnoid cister ns. There is no hydrocephalus. There is no midline shift. Ibarra-white matter distinction is preserv ed. At the scattered calcifications in the carotid siphons. No abnormal intracranial enhancement. Dural venous sinuses appear patent. Rightward nasal septal deviation. Scattered mild mucosal thickening ethmoid air cells. Mastoid air ce lls are pneumatized. Orbits and globes are intact. IMPRESSION: 1. Left posterior parietal craniotomy flap with underlying resection cavity/posttreatment change. Enc ephalomalacia remains here. The previous peripheral enhancing complex cystic mass is no longer appare nt. No suspicious residual/recurrent enhancement is appreciated by CT. 2. No acute intracranial abnormality seen.
[2023-10-29 16:36] LABS: Appearance,Urine Clear (Clear); Bilirubin,Urine Negative (Negative); Blood,Urine Small (Negative); Color,Urine Colorless; Glucose,Urine (UA) Negative (Negative); Hyaline Casts,Urine 1 /lpf (0-2); Ketones,Urine Negative (Negative); Leukocyte Esterase,Urine Negative (Negative); Mucus,Urine Rare /hpf; Nitrite,Urine Negative (Negative); PH, Urine 6.5 (5.0-8.0); Protein,Urine Negative (Negative); RBC,Urine 1 /hpf (0-5); Specific Gravity,Urine 1.035 (1.001-1.035); Squamous Epithelial Cell,Urine 1 /hpf (0-4); Urobilinogen,Urine <2.0 mg/dL (<2.0); WBC,Urine 3 /hpf (0-5)
[2023-10-29 16:45] LABS: Amphetamine Screen,Urine Not Detected (NotDetected); Barbiturate Screen,Urine Not Detected (NotDetected); Benzodiazepines Screen,Urine Not Detected (NotDetected); Cocaine Screen,Urine Not Detected (NotDetected); Methadone Screen, Urine Not Detected (NotDetected); Opiate Screen,Urine Not Detected (NotDetected); Oxycodone Screen, Urine Not Detected (NotDetected); Phencyclidine Screen,Urine Not Detected (NotDetected); Tricyclic Antidepressant,Urine Not Detected (NotDetected); Urn Cannabinoid Scrn Not Detected (NotDetected)
[2023-10-29] MEDS ORDERED: ACETAMINOPHEN TAB 325 MG TAB PO PRN (17:21)
[2023-10-29] MEDS ORDERED: NALOXONE 0.4 MG/ML 1 ML VIAL IV PRN (17:21)
[2023-10-29] MEDS: SODIUM CHLORIDE 0.9% 1,000 ML IV SCH (17:43)
--- NOTE | 2023-10-29 20:25 | P.CNNES ---
History of Present Illness Consult date: 10/29/23 Requesting physician: Collin Salinas Reason for Consult: ams History of Present Illness: This is a 58-year-old woman with history of bilateral breast cancer with brain mets status post left posterior craniotomy who presented emergency department because of episode of confusion. Clean afternoon today she also had a headache over the bilateral frontal and she is just felt it was aching pain and she rated headache between 4-6 out of 10 but denies any photophobia, phonophobia nausea or vomit. According to the patient she stated that today early in the afternoon she was confused named her dog a different name and was not even making sense. She was accompanied with her daughter. The episode was brief. She denies any history of seizure. She had a one-time episode of confusion that was 2022 she thinks. She was on a brief term of antiepileptic drug it but she stated that it was as a prophylaxis because of her brain mets and that was in 2022 and does not recall the name of the medication. He stated that because of her brain mets with resection of the brain she has right upper quadrant visual deficit. She had the brain resection in the beginning of September 2023 at [facility]. He stated that she continues to have some brain mets but are small and shrinking. She had radiation therapy to the brain because of the brain mets. She had a recent PET scan on 08/18/2023 is reported as no acute suspicious up take to suggest metastatic disease. No suspicious interval change. Some of the workup during this hospital visit consisted of: I reviewed the lab testing. Serum glucose is 127. Sodium, calcium AST ALT is within normal limits next CT of the head is reported as left posterior parietal craniotomy flap with underlying resection cavity posttreatment change. No flow malacia remains here. There previous peripheral enhancing complex cyst mass is no longer apparent. No suspicious residual/recurrent enhancement is appreciated by the CT. No acute intracranial abnormality seen. Personally reviewed the CT and I agree there is no acute or subacute changes. The patient has encephalomalacia over the left occipital region > parietal. Review of Systems The positive and negative as per HPI. Past Medical History Past Medical History: Asthma, Cancer, GERD/Reflux, Osteoarthritis (OA) Additional Past Medical History / Comment(s): Fell Feb 2019, hurt back, still having issues. Allergies. Hx right breast cancer 1995. Heartburn. History of Any Multi-Drug Resistant Organisms: None Reported Past Surgical History: Breast Surgery, Section, Orthopedic Surgery Additional Past Surgical History / Comment(s): Section X2, right mastectomy with reconstructive surgery, Mediport placed and removed replaced. ankle Past Anesthesia/Blood Transfusion Reactions: No Reported Reaction Additional Past Anesthesia/Blood Transfusion Reaction / Comment(s): No BP or IV starts or Blood Work in right arm. Difficult IV start. Past Psychological History: No Psychological Hx Reported Smoking Status: Former smoker Past Alcohol Use History: Occasional Past Drug Use History: None Reported - Past Family History Mother Family Medical History: No Reported History Medications and Allergies Home Medications Medication Instructions Recorded Confirmed Type Cetirizine HCl 10 mg PO DAILY 10/11/21 10/29/23 History Olaparib [Lynparza] 300 mg PO BID 01/22/23 10/29/23 History Acetaminophen Tab [Tylenol Tab] 500 mg PO Q6H PRN 10/29/23 10/29/23 History Cyanocobalamin [Vitamin B-12] 500 mcg PO DAILY 10/29/23 10/29/23 History Levothyroxine Sodium [Synthroid] 112 mcg PO DAILY 10/29/23 10/29/23 History Memantine [Namenda] 10 mg PO BID 10/29/23 10/29/23 History Omeprazole Magnesium [PriLOSEC OTC] 20 mg PO DAILY 10/29/23 10/29/23 History Allergies Allergy/AdvReac Type Severity Reaction Status Date / Time doxycycline Allergy Vomiting Verified 10/29/23 15:15 Iodinated Contrast Media Allergy Rash/Hives Verified 10/29/23 15:15 Tape Allergy "Eats Skin" Uncoded 01/22/23 11:32 Physical Examination - Vital Signs Vital Signs: Vital Signs Temp Pulse Resp BP Pulse Ox 10/29/23 18:25 98.3 F 63 16 122/66 99 10/29/23 16:25 66 17 120/60 98 10/29/23 15:25 66 17 112/66 98 10/29/23 13:58 98.1 F 87 16 137/71 99 Intake and Output 10/29/23 10/29/23 10/29/23 06:59 14:59 22:59 Other: Weight 71.668 kg GENERAL: The patient is lying in bed and is not in acute distress. NEUROLOGICAL: Higher mental function: The patient is awake, alert, oriented to self, place and time. Patient is following commands. No aphasia and no neglect. Cranial nerves: The pupils are round, equal and reactive to light and accommodation. Visual jacob are right upper quadrant homonymous hemianopsia. Extraocular movement is intact no nystagmus is noted. Facial sensation is normal to touch throughout. The facial strength is normal throughout. Hearing is normal bilaterally to hand rub. Tongue is midline and moved [id number] without any difficulty. No dysarthria is noted. Shoulder shrug is normal b ilaterally. Motor: The strength is 5 over 5 throughout. Normal tone and bulk. Cerebellum: Normal finger to nose heel to mauricio bilaterally. Sensation: Sensation is normal to touch throughout. Reflexes (right/left): 2+ throughout. Plantars are downgoing bilaterally. Results - Laboratory Findings CBC and BMP: 10/29/23 14:29 10/29/23 14:29 Abnormal Lab Findings: Abnormal Labs 10/29/23 10/29/23 10/29/23 14:29 14:29 14:29 RBC 3.06 L Hct 33.9 L MCV 110.8 H MCH 38.7 H RDW 16.7 H Plt Count 144 L Lymphocytes # 0.3 L Macrocytosis Marked A Chloride 109 H Glucose 127 H POC Glucose (mg/dL) Alkaline Phosphatase 137 H Total Protein 5.9 L Urine Blood Small H Urine Mucus Rare H 10/29/23 14:41 RBC Hct MCV MCH RDW Plt Count Lymphocytes # Macrocytosis Chloride Glucose POC Glucose (mg/dL) 133 H Alkaline Phosphatase Total Protein Urine Blood Urine Mucus Assessment and Plan Assessment: This is a 58 y/o woman with history of bilateral breast cancer with mets to brain s/p resection of left posterior region in beginning on 09/2023 at [facility], radiation therapy who presents because of brief episode of confusion and had headache. Transient episode of encephalopathy: Possible seizure (has encephalomalacia which can cause cortical irritability and lead to seizure). Rule out new brain mets History of bilateral breast cancer with brain mets status post left posterior resection of mass in begining of September 2023 at [facility] Right upper quadrant homonymous hemianposia due to her hx of brain mets Plan: MRI of the brain with and without is ordered by the ED team and is pending Patient had a recent PET scan on 08/25/2023 and there is no acute suspicious uptake suggest metastatic disease. No suspicious interval change. I ordered a routine EEG. I notified the patient that I am concerned about focal seizure and recommended starting antiepileptic. She wants to hold off any medication for now until the workup is completed. Will consider starting the patient on Keppra 500 mg twice daily but will hold off until after the workup is complete Notified the patient if patient has any seizure per the [place] DMV, to avoid driving for 6 months until seizure-free, avoid heights, avoid swimming unassisted or using heavy machinery Seizure precautions seizure pads Will defer rest of the medical management the primary and other specialist Thank you for the consultation. Time with Patient: Greater than 30
[2023-10-29] MEDS ORDERED: OLAPARIB 150 MG PO SCH (21:00)
[2023-10-29] MEDS: MEMANTINE 10 MG TAB PO SCH (21:12)
--- NOTE | 2023-10-29 22:34 | P.HPIM ---
History of Present Illness H&P Date: 10/29/23 HISTORY OF PRESENT ILLNESS: 58-year-old with active medical history of metastatic breast cancer to the brain has seen oncology on more regular basis our first encounter of brain metastasis was on October 01, 2022 where was admitted to [facility] with severe intractable headache and vomiting with a left occipital mass with vasogenic edema diagnosed as metastasis. After 3 days being the hospital patient was transferred to [facility] where he ended up having craniotomy of the left posterior parietal area for mass over 5 cm. She ended up requiring radiation afterward and apparently ended up having gamma knife therapy as well. Still seen oncology more regular basis and has been doing well till the today when he was coming from [place] with his family did not act swallow" especially with expressive language become quite a bit tired at the point arrived home could not express herself and had severe altered mental status significantly different from her usual still able to move her upper and lower extremity and had balance and gait. Family and that bring her to the emergency department at [facility]. Brain CAT scan did not show any abnormality she had apparently recent PET scan on August 18, 2023 with no acute suspicion to suggest metastasis. After arriving to the emergency room her symptoms resolved completely the whole episode lasted over an hour and a half and her confusion. Her full panel blood work shows negative UA, drug screen, chemistry with mildly elevated blood sugar only troponin was negative, CBC with very low-grade anemia and mild thrombocytopenia. Patient was admitted to the hospital will be seeing urology EEG kidney volume probably MRI of the brain to exclude possibility of metastasis. REVIEW OF SYSTEMS: CONSTITUTIONAL: Well-developed no acute respiratory distress. EYES: No icterus sclerae, no conjunctivitis. EARS, NOSE, MOUTH, THROAT, and FACE: No sore throat, lymphadenopathy, carotid bruits or deformity. RESPIRATORY: No SOB cough or wheezes. CARDIOVASCULAR: No CP, Palpitation, PND, Orthopnea, or angina. GASTROINTESTINAL: No Abd pain, Nausea or vomiting, no Diarrhea or constipation, No GI Bleed, no distention or masses. GENITOURINARY: Negative for Hematuria or UTI, no kidney stones. INTEGUMENT/BREAST: Negative for any muscular injury with mild osteoarthritis.. HEMATOLOGIC/LYMPHATIC: Negative for bleed or purpura. MUSCULOSKELTAL: Negative for Myalgia or arthralgia. NEURLOGICAL: Significant change in mental status back to normal with history of brain metastasis from breast cancer BEHAVIORAL/PSYCH: Negative. ENDOCRINE: Negative. PHYSICAL EXAMINATION: General Appearance: Alert, cooperative, no distress, appears stated age. Neck HEENT: Supple, no lymphadenopathy, no thyroid enlargement, no carotid bruits. Slight abnormal gaze with her eyes specially the right side. Slight indentation of the scalp in the left posterior pedicle area. Lungs: Clear to auscultation without crackles or wheezes no rhonchi, no d eformity. Chest Wall: Chest wall normal expansion with deep inspiration no tenderness and no deformity was found on exam, no costochondral pain or discomfort. Heart: Regular rate and rhythm, S1, S2 normal, no murmur, rub or gallop. Back: Symmetric, no curvature, ROM normal, no CVA tenderness. Abdomen: Soft, non-tender, bowel sounds active all four quadrants, no masses, no organomegaly. Extremities: Extremities normal, atraumatic, no cyanosis or edema. Pulses: 2+ and symmetric. Skin: Skin color, texture, tugor normal, no rashes or lesions. Neurologic: Alert oriented x3 cranial nerves II through XII intact, no motor deficit, no abnormal balance or gait. ASSESSMENT AND PLAN: _Acute altered mental status: Not a clear etiology this could be seizure activity or metastatic brain cancer especially with her history patient be admitted to the hospital, EEG and brain MRI will be done consult neurology watch for any further episodes while she is in the hospital. _History of brain metastasis post craniotomy and gamma knife call me with radiation as well done back in September last year. Patient did not stay on any long-term antiseizure medication. _History of advanced bilateral breast cancer 30 years apart in the last was the left side from the last 2 years. Still seen oncology on a regular basis. Still on active oncology management. _History of asthma:On rescue inhaler on as-needed basis only. _Hypothyroidism: Remain on Synthroid 112 mcg daily. _GERD: Continue omeprazole 20 mg daily. _Continue chemotherapy on metastatic breast cancer: Remain on Lynparza family will provide medication for tonight to continue 10 mg twice a day. _Mild hyperglycemia: Without being diabetic or treatment, continue Accu-Chek with sliding scales coverage for now. _Thrombocytopenia: Most likely secondary to chemotherapy. _GI prophylaxis: Remain on PPI. _DVT prophylaxis: Knee-high EDWARD hose and early mobilization will avoid heparin or Lovenox because of her thrombocytopenia. CODE STATUS: Full code. Admit patient to the inpatient service for 1-2 night stay. Past Medical History Past Medical History: Asthma, Cancer, GERD/Reflux, Osteoarthritis (OA) Additional Past Medical History / Comment(s): Fell Feb 2019, hurt back, still having issues. Allergies. Hx right breast cancer 1995. Heartburn. History of Any Multi-Drug Resistant Organisms: None Reported Past Surgical History: Breast Surgery, Section, Orthopedic Surgery Additional Past Surgical History / Comment(s): Section X2, right mastectomy with reconstructive surgery, Mediport placed and removed replaced. ankle Past Anesthesia/Blood Transfusion Reactions: No Reported Reaction Additional Past Anesthesia/Blood Transfusion Reaction / Comment(s): No BP or IV starts or Blood Work in right arm. Difficult IV start. Past Psychological History: No Psychological Hx Reported Smoking Status: Former smoker Past Alcohol Use History: Occasional Past Drug Use History: None Reported - Past Family History Mother Family Medical History: No Reported History Medications and Allergies Home Medications Medication Instructions Recorded Confirmed Type Cetirizine HCl 10 mg PO DAILY 10/11/21 10/29/23 History Olaparib [Lynparza] 300 mg PO BID 01/22/23 10/29/23 History Acetaminophen Tab [Tylenol Tab] 500 mg PO Q6H PRN 10/29/23 10/29/23 History Cyanocobalamin [Vitamin B-12] 500 mcg PO DAILY 10/29/23 10/29/23 History Levothyroxine Sodium [Synthroid] 112 mcg PO DAILY 10/29/23 10/29/23 History Memantine [Namenda] 10 mg PO BID 10/29/23 10/29/23 History Omeprazole Magnesium [PriLOSEC OTC] 20 mg PO DAILY 10/29/23 10/29/23 History Allergies Allergy/AdvReac Type Severity Reaction Status Date / Time doxycycline Allergy Vomiting Verified 10/29/23 15:15 Iodinated Contrast Media Allergy Rash/Hives Verified 10/29/23 15:15 Tape Allergy "Eats Skin" Uncoded 01/22/23 11:32 Physical Exam Vitals: Vital Signs Temp Pulse Resp BP Pulse Ox 10/29/23 18:25 98.3 F 63 16 122/66 99 10/29/23 16:25 66 17 120/60 98 10/29/23 15:25 66 17 112/66 98 10/29/23 13:58 98.1 F 87 16 137/71 99 Intake and Output 10/29/23 10/29/23 10/29/23 06:59 14:59 22:59 Other: Weight 71.668 kg Results CBC & Chem 7: 10/29/23 14:29 10/29/23 14:29 Labs: Abnormal Lab Results - Last 24 Hours (Table) 10/29/23 10/29/23 10/29/23 Range/Units 14:29 14:29 14:29 RBC 3.06 L (3.80-5.40) m/uL Hct 33.9 L (34.0-46.0) % MCV 110.8 H (80.0-100.0) fL MCH 38.7 H (25.0-35.0) pg RDW 16.7 H (11.5-15.5) % Plt Count 144 L (150-450) k/uL Lymphocytes # 0.3 L (1.0-4.8) k/uL Macrocytosis Marked A Chloride 109 H (98-107) mmol/L Glucose 127 H (74-99) mg/dL POC Glucose (mg/dL) (70-110) mg/dL Alkaline Phosphatase 137 H (38-126) U/L Total Protein 5.9 L (6.3-8.2) g/dL Urine Blood Small H (Negative) Urine Mucus Rare H (None) /hpf 10/29/23 Range/Units 14:41 RBC (3.80-5.40) m/uL Hct (34.0-46.0) % MCV (80.0-100.0) fL MCH (25.0-35.0) pg RDW (11.5-15.5) % Plt Count (150-450) k/uL Lymphocytes # (1.0-4.8) k/uL Macrocytosis Chloride (98-107) mmol/L Glucose (74-99) mg/dL POC Glucose (mg/dL) 133 H (70-110) mg/dL Alkaline Phosphatase (38-126) U/L Total Protein (6.3-8.2) g/dL Urine Blood (Negative) Urine Mucus (None) /hpf
[2023-10-29] MEDS: OLAPARIB 150 MG PO SCH (22:45)
[2023-10-30] MEDS: LEVOTHYROXINE 112 MCG TAB PO SCH (07:34)
[2023-10-30] MEDS: CYANOCOBALAMIN 500 MCG TAB PO SCH (08:10)
[2023-10-30] MEDS: PANTOPRAZOLE 40 MG TABLET PO SCH (08:10)
[2023-10-30] MEDS: LORATADINE 10 MG TAB PO SCH (08:10)
[2023-10-30] MEDS: ACETAMINOPHEN TAB 500 MG TAB PO PRN (08:39)
[2023-10-30 08:56] VITALS: PULSE 70
--- NOTE | 2023-10-30 12:47 | MR ---
EXAMINATION TYPE: MR brain wo/w con DATE OF EXAM: 10/30/2023 12:00 PM CLINICAL INDICATION:Female, 58 years old with history of ams, h/o tumor; PHH, Altered mental status, hx of brain tumor removal COMPARISON: 10/03/2022 TECHNIQUE: Multi planar, multi sequence imaging was performed through the brain including: T1, T2, In version recovery, susceptibility weighted imaging and gradient echo imaging and Diffusion weighted im aging. The patient was then given intravenous contrast and multi planar, T1 fat-saturation images wer e obtained. IV Contrast: 7 cc Gadavist FINDINGS: Decrease in enhancement around the surgical bed cavity from 10/03/2022. There remains minimal enhancement best appreciated on series 801 image 56 on the surgical bed. There remains white matter changes within the left occipital/parietal region. The han-white junctions, ventricular system, basa l cisterns appear unremarkable. Diffusion-weighted imaging shows no evidence of restricted diffusion to suggest acute/subacute infarct. Intracranial arterial flow voids are maintained. Midline structur es show no abnormality. The susceptibility weighted images do not reveal any evidence for micro-hemor rhage. The bone marrow signal is craniotomy changes of the left posterior lateral aspect. Bone marrow signal is relatively unremarkable. Paranasal sinuses and mastoid air cells: No significant paranasal sinus disease. Visualized orbits: Orbital contents are intact. IMPRESSION: Postsurgical changes with decreased enhancement around the surgical bed cavity. There remains trace a mount of enhancement along the inferior aspect. No evidence for acute/subacute CVA.
[2023-10-30] MEDS: levETIRAcetam 500 MG TAB PO SCH (13:35)
[2023-10-30 13:43] VITALS: BP 112/69; RESP 14; TEMP 97.5
--- NOTE | 2023-10-30 13:57 | P.PN ---
Subjective Progress Note Date: 10/30/23 I am following up with the patient and no further episodes of confusion. She feels back to baseline. Patient stated that she just recently had the MRI of the brain and EEG. Objective - Vital Signs Vital signs: Vital Signs Temp 97.5 F L 10/30/23 12:57 Pulse 70 10/30/23 12:57 Resp 14 10/30/23 12:57 BP 112/69 10/30/23 12:57 Pulse Ox 98 10/30/23 12:57 FiO2 Intake & Output 10/29/23 10/30/23 10/30/23 18:59 06:59 18:59 Intake Total 200 Balance 200 Weight 71.668 kg 71.668 kg Intake: Oral 200 Other: # Voids 1 - Exam GENERAL: The patient is lying in bed and is not in acute distress. NEUROLOGICAL: Higher mental function: The patient is awake, alert, oriented to self, place and time. Patient is following commands. No aphasia and no neglect. Cranial nerves: The pupils are round, equal and reactive to light and accommodation. Visual jacob are right upper quadrant homonymous hemianopsia. Extraocular movement is intact no nystagmus is noted. Facial sensation is normal to touch throughout. The facial strength is normal throughout. Hearing is normal bilaterally to hand rub. Tongue is midline and moved [id number] without any difficulty. No dysarthria is noted. Shoulder shrug is normal bilaterally. Motor: The strength is 5 over 5 throughout. Normal tone and bulk. Cerebellum: Normal finger to nose heel to mauricio bilaterally. Sensation: Sensation is normal to touch throughout. Reflexes (right/left): 2+ throughout. Plantars are downgoing bilaterally. Some of the workup during this hospital visit consisted of: I reviewed the lab testing. Serum glucose is 127. Sodium, calcium AST ALT is within normal limits next CT of the head is reported as left posterior parietal craniotomy flap with underlying resection cavity posttreatment change. No flow malacia remains here. There previous peripheral enhancing complex cyst mass is no longer apparent. No suspicious residual/recurrent enhancement is appreciated by the CT. No acute intracranial abnormality seen. Personally reviewed the CT and I agree there is no acute or subacute changes. The patient has encephalomalacia over the left occipital region > parietal. - Labs CBC & Chem 7: 10/29/23 14:29 10/29/23 14:29 Labs: Abnormal Lab Results - Last 24 Hours (Table) 10/29/23 10/29/23 10/29/23 Range/Units 14:29 14:29 14:29 RBC 3.06 L (3.80-5.40) m/uL Hct 33.9 L (34.0-46.0) % MCV 110.8 H (80.0-100.0) fL MCH 38.7 H (25.0-35.0) pg RDW 16.7 H (11.5-15.5) % Plt Count 144 L (150-450) k/uL Lymphocytes # 0.3 L (1.0-4.8) k/uL Macrocytosis Marked A Chloride 109 H (98-107) mmol/L Glucose 127 H (74-99) mg/dL POC Glucose (mg/dL) (70-110) mg/dL Alkaline Phosphatase 137 H (38-126) U/L Total Protein 5.9 L (6.3-8.2) g/dL Urine Blood Small H (Negative) Urine Mucus Rare H (None) /hpf 10/29/23 Range/Units 14:41 RBC (3.80-5.40) m/uL Hct (34.0-46.0) % MCV (80.0-100.0) fL MCH (25.0-35.0) pg RDW (11.5-15.5) % Plt Count (150-450) k/uL Lymphocytes # (1.0-4.8) k/uL Macrocytosis Chloride (98-107) mmol/L Glucose (74-99) mg/dL POC Glucose (mg/dL) 133 H (70-110) mg/dL Alkaline Phosphatase (38-126) U/L Total Protein (6.3-8.2) g/dL Urine Blood (Negative) Urine Mucus (None) /hpf Assessment and Plan Assessment: This is a 58 y/o woman with history of bilateral breast cancer with mets to brain s/p resection of left posterior region in beginning on 09/2023 at [facility], radiation therapy who presents because of brief episode of confusion and had headache. Transient episode of encephalopathy: Possible seizure (has encephalomalacia which can cause cortical irritability and lead to seizure). Rule out new brain mets History of bilateral breast cancer with brain mets status post left posterior resection of mass in begining of September 2023 at [facility] Right upper quadrant homonymous hemianposia due to her hx of brain mets Plan: MRI of the brain with and without is completed an pending. Patient had a recent PET scan on 08/25/2023 and there is no acute suspicious uptake suggest metastatic disease. No suspicious interval change. Routine EEG is completed and pending to be read. I notified the patient that I am concerned about focal seizure and recommended starting antiepileptic. Patient is in agreement of starting Keppra 500 mg twice daily. I notified her about the side effect of mood irritability. Notified the patient if patient has any seizure per the [place] DMV, to avoid driving for 6 months until seizure-free, avoid heights, avoid swimming unassisted or using heavy machinery Seizure precautions seizure pads Will defer rest of the medical management the primary and other specialist Upon discharge recommend the patient to follow-up with a neurologist as an outpatient within 2 weeks Plan discussed with the patient, her daughter was at bedside and her nurse ADDENDUM: MRI of the brain is reported as postsurgical changes with decreased enhancement around the surgical bed cavity. There remains trace amount of enhancement along the inferior aspect. No evidence of acute/subacute CVA. I personally reviewed the MRI and agree with the report. Time with Patient: Less than 30
--- NOTE | 2023-10-30 20:12 | EEG ---
ELECTROENCEPHALOGRAM REPORT CLINICAL HISTORY: This is a 58-year-old woman with history of breast cancer with metastasis to the brain, who presents to the emergency department because of episode of confusion. The video EEG is obtained to evaluate for seizure epileptiform activity. RELEVANT MEDICATION: The patient is not on any antiepileptic drugs. EEG TYPE: This is a routine 21-channel EEG with video using the 10/20 electrode placement system. DESCRIPTION: Wakefulness and drowsiness are obtained. During awake state, the posterior dominant rhythm consists of umj-ly-dizazjzq voltage of 9 to 10 hertz activity that is well modulated, and well sustained. There is no physiological stage 2 sleep architecture. There is mild focal slowing over left parietal region. Interictal and ictal is, there is sharply contoured activity over left parietal region as well as there is phase reversal over the P3. No seizures noted during the study. ACTIVATION PROCEDURE: Photic stimulation did evoke a posterior driving response at 6 hertz activity. There is no abnormality during the photic stimulation. Hyperventilation is not performed. CLINICAL INTERPRETATION: This is an abnormal routine EEG. The background is normal. The focal slowing over the left parietal is suggestive of cerebral dysfunction in the involved region. The epileptiform discharges over the left parietal increases risk for focal seizure and status epilepticus. No seizures noted during the study. Clinical correlation is recommended. MMODL / IJN: [id number] /
--- NOTE | 2023-11-02 19:37 | P.DS ---
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 After 3 days being the hospital patient was transferred to [facility] where he ended up having craniotomy of the left posterior parietal area for mass over 5 cm. She ended up requiring radiation afterward and apparently ended up having gamma knife therapy as well. Still seen oncology more regular basis and has been doing well till the today when he was coming from [place] with his family did not act swallow" especially with expressive language become quite a bit tired at the point arrived home could not express herself and had severe altered mental status significantly different from her usual still able to move her upper and lower extremity and had balance and gait. Family and that bring her to the emergency department at [facility]. Brain CAT scan did not show any abnormality she had apparently recent PET scan on August 18, 2023 with no acute suspicion to suggest metastasis. After arriving to the emergency room her symptoms resolved completely the whole episode lasted over an hour and a half and her confusion. Her full panel blood work shows negative UA, drug screen, chemistry with mildly elevated blood sugar only troponin was negative, CBC with very low-grade anemia and mild thrombocytopenia. Patient was admitted to the hospital will be seeing urology EEG kidney volume probably MRI of the brain to exclude possibility of metastasis. 10/30/2023: Patient ended up going for MRI of the brain with and without contrast and came back with no evidence For any brain metastasis still showing postsurgical change with decreased enhancement around the surgical site and there is a trace amount of enhancement along the inferior aspect with no evidence of acute or subacute stroke. Also EEG was performed by neurology and came as an abnormal routine EEG due to focal slowing in over the left parietal is suggestive of's cerebral dysfunction in the involved region the epileptic form discharges over the left parietal increased risk for focal seizure status epilepticus no seizure noted during the study. Neurology is recommending starting antiepileptic epileptic treatment with Keppra 500 mg twice a day and was notified of the side effects with possible mood irritability. Patient is agreeable to initiate medication she will be discharged home today. REVIEW OF SYSTEMS: CONSTITUTIONAL: Well-developed no acute respiratory distress. EYES: No icterus sclerae, no conjunctivitis. EARS, NOSE, MOUTH, THROAT, and FACE: No sore throat, lymphadenopathy, carotid bruits or deformity. RESPIRATORY: No SOB cough or wheezes. CARDIOVASCULAR: No CP, Palpitation, PND, Orthopnea, or angina. GASTROINTESTINAL: No Abd pain, Nausea or vomiting, no Diarrhea or constipation, No GI Bleed, no distention or masses. GENITOURINARY: Negative for Hematuria or UTI, no kidney stones. INTEGUMENT/BREAST: Negative for any muscular injury with mild osteoarthritis.. HEMATOLOGIC/LYMPHATIC: Negative for bleed or purpura. MUSCULOSKELTAL: Negative for Myalgia or arthralgia. NEURLOGICAL: Significant change in mental status back to normal with history of brain metastasis from breast cancer BEHAVIORAL/PSYCH: Negative. ENDOCRINE: Negative. PHYSICAL EXAMINATION: General Appearance: Alert, cooperative, no distress, appears stated age. Neck HEENT: Supple, no lymphadenopathy, no thyroid enlargement, no carotid bruits. Slight abnormal gaze with her eyes specially the right side. Slight indentation of the scalp in the left posterior pedicle area. Lungs: Clear to auscultation without crackles or wheezes no rhonchi, no deformity. Chest Wall: Chest wall normal expansion with deep inspiration no tenderness and no deformity was found on exam, no costochondral pain or discomfort. Heart: Regular rate and rhythm, S1, S2 normal, no murmur, rub or gallop. Back: Symmetric, no curvature, ROM normal, no CVA tenderness. Abdomen: Soft, non-tender, bowel sounds active all four quadrants, no masses, no organomegaly. Extremities: Extremities normal, atraumatic, no cyanosis or edema. Pulses: 2+ and symmetric. Skin: Skin color, texture, tugor normal, no rashes or lesions. Neurologic: Alert oriented x3 cranial nerves II through XII intact, no motor deficit, no abnormal balance or gait. ASSESSMENT AND PLAN: _Acute altered mental status: Was hospitalized and is going for MRI of the brain along with EEG findings were not consistent with metastasis bleeding hemorrhage and no seizure. _Susceptibility to seizure activity with an abnormal EEG of the brain: Patient be started on antiseizure with Keppra 500 mg twice a day. _History of brain metastasis post craniotomy and gamma knife call me with radiation as well done back in September last year. Patient did not stay on any long-term antiseizure medication. _History of advanced breast cancer with metastasis post right-sided mastectomy Still seen oncology on a regular basis. _History of asthma:On rescue inhaler on as-needed basis only. _Hypothyroidism: Remain on Synthroid 112 mcg daily. _GERD: Continue omeprazole 20 mg daily. _Continue chemotherapy on metastatic breast cancer: Remain on Lynparza family will provide medication for tonight to continue 10 mg twice a day. _Mild hyperglycemia: Without being diabetic or treatment, continue Accu-Chek with sliding scales coverage for now. _Thrombocytopenia: Most likely secondary to chemotherapy. Discussion: Patient was admitted overnight had her MRI of the brain along with EEG had long discussion with neurology and agreed to initiate antiseizure management with Keppra 500 mg twice a day and to see her neurologist and primary care as an outpatient with intraoperative time. Hospital course: She presented to the emergency department at [facility] on 10/29/2023 with altered mental status along with not been able to express herself in full with slight confusion still able to move her upper and lower extremity had slight problems with balance and gait otherwise did well. The day of her presentation was quite very stressful and referred to the original history and physical examination she had seen her oncologist on a regular basis she is a survival of brain metastasis from original breast cancer had craniotomy on the left parietal area along with gamma knife treatment and management. With the current presentation reminded her of what happened originally with metastasis ended up being seen in the emergency department CAT scan of the brain is totally normal patient was admitted to the hospital to see neurology and arrangement for an MRI of the brain to exclude any possibility of metastasis. Patient was seen neurology agreed with MRI and the EEG was slightly bit abnormal but no active acute seizure activity but susceptibility to have epileptic form specially with her craniotomy and the scar tissue. Patient was agreeable to start antiseizure medication. MRI of the brain did not show any evidence space for metastasis or any abnormality. Patient was stable to be discharged home on 10/30/2023. Time spent on discharging patient was over 32 minutes. Plan - Discharge Summary Discharge Rx Participant: No New Discharge Prescriptions: New levETIRAcetam [Keppra] 500 mg PO Q12HR #60 tab Continue Cetirizine HCl 10 mg PO DAILY Olaparib [Lynparza] 300 mg PO BID Levothyroxine Sodium [Synthroid] 112 mcg PO DAILY Omeprazole Magnesium [PriLOSEC OTC] 20 mg PO DAILY Cyanocobalamin [Vitamin B-12] 500 mcg PO DAILY Acetaminophen Tab [Tylenol] 500 mg PO Q6H PRN PRN Reason: Pain Or Fever > 100.5 Memantine [Namenda] 10 mg PO BID Discharge Medication List Cetirizine HCl 10 mg PO DAILY 10/11/21 [History] Olaparib [Lynparza] 300 mg PO BID 01/22/23 [History] Acetaminophen Tab [Tylenol] 500 mg PO Q6H PRN 10/29/23 [History] Cyanocobalamin [Vitamin B-12] 500 mcg PO DAILY 10/29/23 [History] Levothyroxine Sodium [Synthroid] 112 mcg PO DAILY 10/29/23 [History] Memantine [Namenda] 10 mg PO BID 10/29/23 [History] Omeprazole Magnesium [PriLOSEC OTC] 20 mg PO DAILY 10/29/23 [History] levETIRAcetam [Keppra] 500 mg PO Q12HR #60 tab 10/30/23 [Rx] Follow up Appointment(s)/Referral(s): Sisi Liriano MD [Primary Care Provider] - 11/05/23 2:30 pm Gus Hernandez MD [STAFF PHYSICIAN] - 11/03/23 11:45 am Discharge Disposition: HOME SELF-CARE
== END 2023-10-30 14:59 | disposition home or self-care (01) ==
LOC: EC 13:56 → 4SSUR 17:23
PROVIDERS: ADMIT Internal Medicine Geriatric Medicine; ATTEND Internal Medicine Geriatric Medicine
DX: G93.40 Encephalopathy, unspecified (principal); H53.461 Homonymous bilateral field defects, right side; G93.89 Other specified disorders of brain; R73.9 Hyperglycemia, unspecified; D69.6 Thrombocytopenia, unspecified; J45.909 Unspecified asthma, uncomplicated; K21.9 Gastro-esophageal reflux disease without esophagitis; E03.9 Hypothyroidism, unspecified; Z85.3 Personal history of malignant neoplasm of breast; Z85.841 Personal history of malignant neoplasm of brain; Z87.891 Personal history of nicotine dependence; Z92.21 Personal history of antineoplastic chemotherapy; Z92.3 Personal history of irradiation; Z79.890 Hormone replacement therapy; Z79.899 Other long term (current) drug therapy; Z88.1 Allergy status to other antibiotic agents
CPT/HCPCS: 96361 ×3; 96374; 96375; 99285; 36415; 94760; 95819; 93005; 80053; 84484; 85025; 85610; 85730; 81001; 80306; 71046; 70470; 70553; G0378 ×2; J1200; J3490; Q9967; A9585; J2919

== ENCOUNTER → 2023-11-27 | Outpatient (CLI) | payer BC ==
--- NOTE | 2023-11-28 18:28 | PE ---
EXAMINATION TYPE: PET CT fusion skull to thigh DATE OF EXAM: 11/27/2023 CLINICAL INDICATION:Female, 58 years old with history of C50.812 Breast CA; TECHNIQUE: Following the intravenous administration of 7.22 mCi of F-18 FDG, whole body images are performed from the skull base to the midthigh. Images are reviewed on the computer in the coronal, a xial, and sagittal planes. Reconstructed rotating images are created on independent workstation and reviewed on the computer. A non-contrast CT is performed in conjunction with the PET scan. Glucose level 104 mg/dL CT DLP: 386.18 mGycm, Automated exposure control for dose reduction was used. COMPARISON: CT 10/29/2023, 10/02/2022 PET/CT 08/18/2023, 05/23/2023, 03/13/2023, 11/16/2022, MRI: 10/30/2023, 10/03/2022 FINDINGS: Mediastinal SUV mean is 2.87. Hepatic parenchyma SUV mean is 3.08. SKULL BASE AND NECK: Physiologic symmetric uptake within the vocal cords. No suspicious radiotracer activity. CHEST, MEDIASTINUM, AND HILAR REGION: No suspicious radiotracer activity. ABDOMEN AND PELVIS: No suspicious radiotracer activity. MUSCULOSKELETAL STRUCTURES: No suspicious radiotracer activity. OTHER CT: Previous left posterior parietal craniotomy with underlying encephalomalacia of the left oc cipital lobe. Atherosclerotic calcification of the arterial vasculature. Right chest wall Infuse-a-Po rt with tip in the mid SVC. Right breast implant. Left breast is surgically absent. Cholelithiasis. P elvic phleboliths. Levocurvature of the thoracolumbar spine. IMPRESSION: No suspicious radiotracer activity.
== END | disposition home or self-care (01) ==
LOC: RADPETMAIN 10:05
PROVIDERS: ATTEND Internal Medicine
DX: C50.812 Malignant neoplasm of overlapping sites of left female breast (principal); K12.31 Oral mucositis (ulcerative) due to antineoplastic therapy; Z71.3 Dietary counseling and surveillance; Z85.3 Personal history of malignant neoplasm of breast
CPT/HCPCS: 78815; A9552

== ENCOUNTER → 2024-04-08 | Outpatient (CLI) | payer BC ==
--- NOTE | 2024-04-08 15:08 | PE ---
EXAMINATION TYPE: PET CT fusion skull to thigh DATE OF EXAM: 04/08/2024 CLINICAL INDICATION:Female, 59 years old with history of C50.112 Breast ca; TECHNIQUE: Following the intravenous administration of 11.17 mCi of F-18 FDG, whole body images are performed from the skull vertex to the midthigh. Images are reviewed on the computer in the coronal , axial, and sagittal planes. Reconstructed rotating images are created on independent workstation a nd reviewed on the computer. A non-contrast CT is performed in conjunction with the PET scan. Gluco se level 99 mg/dL CT DLP: 577.44 mGycm, Automated exposure control for dose reduction was used. COMPARISON: CT 10/29/2023, 10/02/2022, 10/01/2022, PET/CT 11/27/2023, 08/18/2023, 05/23/2023, 03/13/2023, 10/29, MRI: 10/30/2023 FINDINGS: Mediastinal SUV mean is 2.7. Hepatic parenchyma SUV mean is 3.0. SKULL BASE AND NECK: Physiologic symmetric uptake within the vocal cords. No suspicious radiotracer activity. CHEST, MEDIASTINUM, AND HILAR REGION: No suspicious radiotracer activity. Marginal increase in size of peripheral right lower lobe 5.2 mm pulmonary nodule, previously 4.5 mm ( series 3, image 134). No definitive FDG activity however there is focal radiotracer activity within t he adjacent ninth rib as described below. ABDOMEN AND PELVIS: No suspicious radiotracer activity. MUSCULOSKELETAL STRUCTURES: New focal region of radiotracer uptake within the posterior lateral right ninth rib without focal abn ormality on CT. This demonstrates a maximum SUV of 5.2. OTHER CT: Previous left posterior parietal craniotomy with underlying encephalomalacia of the left oc cipital lobe. Atherosclerotic calcification of the arterial vasculature. Right chest wall Infuse-a-Po rt with tip in the mid SVC. Right breast implant. Left breast is surgically absent. Postsurgical reyes ges from right axillary lymph node dissection. Cholelithiasis. Pelvic phleboliths. Levocurvature of t he thoracolumbar spine. IMPRESSION: New mild focal region of radiotracer uptake within the posterior lateral right ninth rib without molly esponding abnormality on CT. However there is an adjacent 5 mm pulmonary nodule which is marginally i ncreased in size from prior examination. Findings may reflect developing osseous metastasis versus pu lmonary metastasis. No other new suspicious sites of FDG activity. Continued follow-up is recommended . [facility], , 04/08/2024 3:05 PM
== END | disposition home or self-care (01) ==
LOC: RADPETMAIN 10:56
PROVIDERS: ATTEND Internal Medicine
DX: C50.112 Malignant neoplasm of central portion of left female breast (principal); R91.1 Solitary pulmonary nodule; R93.7 Abnormal findings on diagnostic imaging of other parts of musculoskeletal system
CPT/HCPCS: 78815; A9552

== ENCOUNTER → 2024-07-08 | Outpatient (CLI) | payer BC ==
--- NOTE | 2024-07-08 17:04 | PE ---
EXAMINATION TYPE: PET CT fusion skull to thigh DATE OF EXAM: 07/08/2024 COMPARISON: Prior PET/CT April 08, 2024 and older studies. HISTORY: Breast cancer progress study. TECHNIQUE: Following the intravenous administration of 10.5 mCi of F-18 FDG, whole body images are p erformed from the top of skull to the midthigh. Images are reviewed on the computer in the coronal, axial, and sagittal planes. Reconstructed rotating images are created on independent workstation and reviewed on the computer. A localization and attenuation correction CT is performed in conjunction with the PET scan. Blood glucose level equals 102 SCAN: Subsequent Scan FINDINGS: HEAD AND NECK: No new areas of abnormal hypermetabolic uptake. CHEST, MEDIASTINUM, AND HILAR REGION: More prominent 9 x 7 mm peripheral right lower lobe hypermetabo lic nodule axial image 125. Some more prominent hypermetabolic uptake in the adjacent rib is redemons trated. Possible misregistration. Max SUV is 8.16 at this level. ABDOMEN AND PELVIS: No new areas of abnormal hypermetabolic uptake. OSSEOUS STRUCTURES: No new areas of suspicious hypermetabolic uptake. OTHER CT: Stable right subclavian Mediport catheter. Thyroid gland is not well seen and may be surgic ally absent. Left breast is surgically absent. Right breast rim calcified implant redemonstrated. Large dependent gallstone in gallbladder redemonstrated. Scoliosis of the lumbar spine again seen. IMPRESSION: Slow growing peripheral right lower lobe nodule with nearby/adjacent hypermetabolic uptak e is worrisome for active malignancy. [facility], , 07/08/2024 5:02 PM
== END | disposition home or self-care (01) ==
LOC: RADPETMAIN 08:47
PROVIDERS: ATTEND Internal Medicine
DX: C50.612 Malignant neoplasm of axillary tail of left female breast (principal); R91.1 Solitary pulmonary nodule
CPT/HCPCS: 78815; A9552

== ENCOUNTER → 2024-09-23 | Outpatient (CLI) | payer BC ==
--- NOTE | 2024-09-27 09:42 | PE ---
EXAMINATION TYPE: PET CT fusion skull to thigh DATE OF EXAM: 09/23/2024 COMPARISON: No recent pertinent CT Prior PET/CT: 07/08/2024 CLINICAL INDICATION: Female, 59 years old with history of C50.112 Breast CA, TECHNIQUE: Following the intravenous administration of 10.6 mCi of F-18 FDG, whole body images are p erformed PET CT fusion skull to thigh. Images are reviewed on the computer in the coronal, axial, an d sagittal planes. Reconstructed rotating images are created on independent workstation and reviewed on the computer. A localization and attenuation correction CT is performed in conjunction with the PET scan. DLP: 791.8 mGycm SCAN: Subsequent Blood glucose: 109 mg/dL Average Mediastinum SUV: 2.71 Average Liver SUV: 2.77 FINDINGS: NECK: No abnormal uptake THORAX: There is a focus of uptake within the posterior lateral right lung nodule. Image 110, SUV 6.7 1. Previous SUV 8.16. ABDOMEN: No abnormal uptake PELVIS: No abnormal uptake OSSEOUS STRUCTURES: No abnormal uptake LOCALIZATION CT: Cholelithiasis is present. COMPARISON: No new changes from comparison. Nodule currently measures 1.1 x 0.9 cm. Previous measurem ent 0.9 x 0.7 cm. IMPRESSION: 1. Solitary uptake posterior lateral right lung nodule increased in size but with diminishing SUV fro m prior exam. [facility], , 09/27/2024 9:40 AM
== END | disposition home or self-care (01) ==
LOC: RADPETMAIN 10:49
PROVIDERS: ATTEND Internal Medicine
DX: C50.112 Malignant neoplasm of central portion of left female breast (principal); R91.1 Solitary pulmonary nodule
CPT/HCPCS: 78815; A9552